=== PATIENT | male | born 1960 | race Caucasian/White ===

== ENCOUNTER 2017-06-20 11:58 | Observation (INO) | payer OTHER ==
[2017-06-20] VITALS (8 sets, daily range): BP systolic 94–122; BP diastolic 57–68; PULSE 51–58; RESP 16–20; TEMP 97.9–98; O2SAT 96–99
[~2017-06-20] VITALS: Ht 172.7 cm; Wt 80.0 kg
[~2017-06-20 11:58] MED LIST: 1-ME1LIQ OR; BENA20TA PO; MS C30TA5 PO; PERC10TA27 PO; VIST50CA PO
[2017-06-20] MEDS ORDERED: SODIUM CHLOR 0.9% 1000 ML INJ 1,000 ML IV ONE (14:31)
--- NOTE | 2017-06-20 14:36 | PD ---
HPI Chief Complaint: SYNCOPE Time Seen by Provider: 14:33 Travel History International Travel<30 days: No Contact w/Intl Traveler<30days: No History of Present Illness HPI 57 year old male presents to the emergency department via EMS for evaluation of syncopal episode. Patient is in ambulance hallway and is evaluated there. Patient reports syncopal episode approximately 5 hours ago. He states he was walking to his kitchen when he had a syncopal episode. Patient states he felt dizzy, like the room was spinning around him before he had syncopal episode. Patient has slurred speech on my exam. He reports that this has been ongoing since yesterday. He states, "I don't feel good". Patient states that he cannot remember his medical history what medications he is on. Patient is a poor historian and is not fully participate in my examination. He denies any headache. Denies any fevers or chills. No chest pain or shortness of breath. No abdominal pain. No vomiting or diarrhea. He does admit to nausea. PFSH Past Medical History Arthritis: No Anxiety: Yes Depression: Yes Heart Rhythm Problems: No Cancer: No Cardiovascular Problems: Yes High Cholesterol: No Chest Pain: No Congestive Heart Failure: No Cerebrovascular Accident: No Diabetes: No Endocrine: No Genitourinary: No Hepatitis: No Hiatal Hernia: No Immune Disorder: No Musculoskeletal: Yes Neurologic: Yes Psychiatric: Yes Reproductive: No Respiratory: No Migraines: No Seizures: No Thyroid Disease: No Past Surgical History Abdominal Surgery: Yes (2002) Body Medical Devices: titanium in the neck Cardiac Surgery: No Ear Surgery: No Endocrine Surgery: No Eye Surgery: No Genitourinary Surgery: No Oral Surgery: No Pacemaker: No Thoracic Surgery: No Social History Alcohol Use: Yes (HAS BEEN IN REHAB) Tobacco Use: Yes (2-3 PACKS A DAY) Substance Use: No Allergies-Medications (Allergen,Severity, Reaction): Coded Allergies: No Known Allergies (Verified , 11/12/11) Reported Meds & Prescriptions Reported Meds & Active Scripts Active Reported Ms Contin (Morphine Sulfate) 30 Mg Tab 30 Mg PO BID Vistaril (Hydroxyzine Pamoate) 50 Mg Cap 50 Mg PO TID Benazepril Hcl (Benazepril HCl) 20 Mg Tab 20 Mg PO DAILY Percocet 10/325 (Oxycodone/Acetaminophen) Tab 1 Tab PO Q4HPRN Amlodipine Besylate 10 Mg Tab 20 Mg OR DAILY Physical Exam Narrative GENERAL: Well-nourished, well-developed male patient. Speech is garbled and slurred. Patient is lethargic. SKIN: Focused skin assessment warm/dry. HEAD: Normocephalic. EYES: No scleral icterus. No injection or drainage. NECK: Supple, trachea midline. No JVD or lymphadenopathy. CARDIOVASCULAR: Regular rhythm without murmurs, gallops, or rubs. Patient is bradycardic with heart rate in the 40s. RESPIRATORY: Breath sounds equal bilaterally. No accessory muscle use. Lungs sounds are clear to auscultation. GASTROINTESTINAL: Abdomen soft, non-tender, nondistended. MUSCULOSKELETAL: No cyanosis, or edema. Bilateral upper and lower extremity strength 5/5. Patient moves all extremities to command BACK: Nontender without obvious deformity. No CVA tenderness. Data Data Orders Complete Blood Count With Diff (06/20/17 14:31) Comprehensive Metabolic Panel (06/20/17 14:31) Magnesium (Mg) (06/20/17 14:31) Ckmb (Isoenzyme) Profile (06/20/17 14:31) Troponin I (06/20/17 14:31) Act Partial Throm Time (Ptt) (06/20/17 14:31) Prothrombin Time / Inr (Pt) (06/20/17 14:31) Urinalysis - C+S If Indicated (06/20/17 14:31) Chest, Single Ap (06/20/17 14:31) Ct Brain W/O Iv Contrast(Rout) (06/20/17 14:31) Ecg Monitoring (06/20/17 14:31) Iv Access Insert/Monitor (06/20/17 14:31) Oximetry (06/20/17 14:31) Sodium Chloride 0.9% Flush (Ns Flush) (06/20/17 14:45) Sodium Chlor 0.9% 1000 Ml Inj (Ns 1000 M (06/20/17 14:31) Drug Screen, Random Urine (06/20/17 14:31) Alcohol (Ethanol) (06/20/17 14:31) Orthostatic Vital Signs (06/20/17 14:36) Electrocardiogram (06/20/17 ) Diphenhydramine Inj (Benadryl Inj) (06/20/17 15:30) MDM Medical Decision Making Medical Screen Exam Complete: Yes Emergency Medical Condition: Yes Medical Record Reviewed: Yes Differential Diagnosis Symptomatic bradycardia versus electric abnormality versus intracranial normality versus CVA versus TIA versus vertigo versus orthostatic hypotension Narrative Course 57-year-old male presents to the emergency department via EMS after syncopal episode. Workup was initiated and ambulatory. Patient is bradycardic. His speech is slurred on exam. He states this started yesterday. Patient is a poor historian. Workup was initiated and patient will be transferred to medical pod when available. Duyen Ordonez Jun 20, 2017 14:36
[2017-06-20] MEDS ORDERED: SODIUM CHLORIDE 0.9% FLUSH 10 ML FLUSH IVF PRN (14:45)
--- NOTE | 2017-06-20 14:51 | RADRPT ---
EXAM DATE/TIME: 06/20/2017 14:44 [facility] COMPARISON: No previous studies available for comparison. INDICATIONS : Syncope. MEDICAL HISTORY : None. SURGICAL HISTORY : Fusion, cervical. ENCOUNTER: Initial ACUITY: 1 day PAIN SCORE: Non-responsive. LOCATION: Bilateral chest FINDINGS: The heart is at the upper limits of normal in size. The lungs demonstrate some chronic interstitial c hanges but are otherwise clear. There is no pleural effusion. No pneumothorax is seen. The visualized bony structures are grossly intact. CONCLUSION: 1. Chronic interstitial changes. Donte Sosa MD on June 20, 2017 at 14:49 Board Certified Radiologist. This report was verified electronically.
[2017-06-20] MEDS ORDERED: diphenhydrAMINE HCL 50 MG/ML VIAL IV PUSH ONE (15:30)
--- NOTE | 2017-06-20 15:49 | PD ---
Physical Exam Date Seen by Provider: Jun 20, 2017 Time Seen by Provider: 15:48 Narrative 57-year-old male that presents to the ED for evaluation of syncope as well as altered mental status. Patient does have a history of bipolar disorder as well as schizophrenia. History is limited because patient does appear to have some dyskinesia appears to have issues talking. History was obtained mainly from the family as is different cold to obtain history from the patient secondary to what appears to be extrapyramidal side effects from his psychotic medication. expressive aphasia on differential. Patient had a syncopal episode today. Patient was initially evaluated by Duyen BELLA, please refer to her note. I was asked to evaluate the patient as well as disposition and treat as needed. Data Data Last Documented VS Vital Signs Date Time Temp Pulse Resp B/P Pulse Ox O2 Delivery O2 Flow Rate FiO2 06/20/17 15:00 52 16 98/68 98 Room Air 06/20/17 14:30 98.0 Orders Complete Blood Count With Diff (06/20/17 14:31) Comprehensive Metabolic Panel (06/20/17 14:31) Magnesium (Mg) (06/20/17 14:31) Ckmb (Isoenzyme) Profile (06/20/17 14:31) Troponin I (06/20/17 14:31) Act Partial Throm Time (Ptt) (06/20/17 14:31) Prothrombin Time / Inr (Pt) (06/20/17 14:31) Urinalysis - C+S If Indicated (06/20/17 14:31) Chest, Single Ap (06/20/17 14:31) Ct Brain W/O Iv Contrast(Rout) (06/20/17 14:31) Ecg Monitoring (06/20/17 14:31) Iv Access Insert/Monitor (06/20/17 14:31) Oximetry (06/20/17 14:31) Sodium Chloride 0.9% Flush (Ns Flush) (06/20/17 14:45) Sodium Chlor 0.9% 1000 Ml Inj (Ns 1000 M (06/20/17 14:31) Drug Screen, Random Urine (06/20/17 14:31) Alcohol (Ethanol) (06/20/17 14:31) Orthostatic Vital Signs (06/20/17 14:36) Electrocardiogram (06/20/17 ) Diphenhydramine Inj (Benadryl Inj) (06/20/17 15:30) Labs Laboratory Tests Test 06/20/17 06/20/17 15:00 15:20 White Blood Count 8.1 TH/MM3 Red Blood Count 3.77 MIL/MM3 Hemoglobin 12.7 GM/DL Hematocrit 38.0 % Mean Corpuscular Volume 100.8 FL Mean Corpuscular Hemoglobin 33.5 PG Mean Corpuscular Hemoglobin 33.3 % Concent Red Cell Distribution Width 12.7 % Platelet Count 164 TH/MM3 Mean Platelet Volume 9.5 FL Neutrophils (%) (Auto) 52.1 % Lymphocytes (%) (Auto) 32.8 % Monocytes (%) (Auto) 9.4 % Eosinophils (%) (Auto) 5.2 % Basophils (%) (Auto) 0.5 % Neutrophils # (Auto) 4.2 TH/MM3 Lymphocytes # (Auto) 2.7 TH/MM3 Monocytes # (Auto) 0.8 TH/MM3 Eosinophils # (Auto) 0.4 TH/MM3 Basophils # (Auto) 0.0 TH/MM3 CBC Comment DIFF FINAL Differential Comment Prothrombin Time 10.5 SEC Prothromb Time International 1.0 RATIO Ratio Activated Partial 26.6 SEC Thromboplast Time Sodium Level 130 MEQ/L Potassium Level 4.7 MEQ/L Chloride Level 98 MEQ/L Carbon Dioxide Level 25.2 MEQ/L Anion Gap 7 MEQ/L Blood Urea Nitrogen 36 MG/DL Creatinine 2.24 MG/DL Estimat Glomerular Filtration 31 ML/MIN Rate Random Glucose 82 MG/DL Calcium Level 9.2 MG/DL Magnesium Level 2.3 MG/DL Total Bilirubin 0.4 MG/DL Aspartate Amino Transf 32 U/L (AST/SGOT) Alanine Aminotransferase 48 U/L (ALT/SGPT) Alkaline Phosphatase 134 U/L Total Creatine Kinase 99 U/L Troponin I 0.02 NG/ML Total Protein 5.6 GM/DL Albumin 2.9 GM/DL Ethyl Alcohol Level LESS THAN 3 MG/DL [facility] Medical Record Reviewed: Yes Supervised Visit with POLLY: No Interpretation(s) CBC & BMP Diagram 06/20/17 15:00 06/20/17 15:20 troponin and CKMB negative Last Impressions Head CT 06/20/17 0901 Signed Impressions: Service Date/Time: June 16:04 - CONCLUSION: 1. No acute hemorrhage, mass effect or acute infarction. 2. Atrophy and findings most characteristic of chronic small vessel ischemic change. 3. Mild streak and motion artifact. Enrique Aguilar MD Chest X-Ray 06/20/17 1431 Signed Impressions: Service Date/Time: June 14:44 - CONCLUSION: 1. Chronic interstitial changes. Donte Sosa MD LFTs negative alcohol negative EKG shows bradycardia read by me and attending. Differential Diagnosis Stroke versus CVA versus altered mental status versus syncope versus head injury versus medication side effect Narrative Course 57-year-old male that presents to the ED for evaluation of syncopal episode with what appears to be extra pyramidal symptoms from antipsychotic med. Patient was initially seen by Duyen BELLA. Please refer to her note. My attending Dr. Castellanos and I evaluated the patient and she agrees with plan. Altered mental status workup was ordered. Labs and imaging were essentially unremarkable other than for what appears to be acute kidney injury. Patient still somewhat altered and unclear this is a side effect of the medication, psychosis or possible CVA. Recommendation of because of this is for admission for further evaluation of this. I'm and patient agree with this. Patient's EKG did show what appears to be bradycardia but this appears to be chronic for the patient. Case discussed with NATALEE who agrees to admission. Diagnosis Primary Impression: Altered mental status Qualified Code: R41.82 - Altered mental status, unspecified altered mental status type Additional Impressions: Syncope Qualified Code: R55 - Syncope, unspecified syncope type Acute kidney injury Admitting Information Admitting Physician Requests: Observation Scripts Unable to Obtain Active Prescriptions or Reported Meds David Schwartz Jun 20, 2017 15:49
[2017-06-20 15:59] LABS: AUTOMATED NEUTROPHIL # 4.2 TH/MM3 (1.8-7.7); BASOPHIL % 0.5 % (0.0-2.0); EOSINOPHIL # 0.4 TH/MM3 (0-0.4); EOSINOPHIL % 5.2 % (0.0-4.0); HEMO FLAGS DIFF FINAL; LYMPH % 32.8 % (9.0-44.0); LYMPHOCYTE # 2.7 TH/MM3 (1.0-4.8); MEAN CELL VOLUME 100.8 FL (80.0-100.0); MEAN CORPUSCULAR HEMOGLOBIN 33.5 PG (27.0-34.0); MEAN CORPUSCULAR HGB CONC 33.3 % (32.0-36.0); MONO % 9.4 % (0.0-8.0); NEUT % 52.1 % (16.0-70.0); PLATELET COUNT 164 TH/MM3 (150-450); RED BLOOD COUNT 3.77 MIL/MM3 (4.50-5.90); RED CELL DISTRIBUTION WIDTH 12.7 % (11.6-17.2); WHITE BLOOD COUNT 8.1 TH/MM3 (4.0-11.0)
[2017-06-20 16:11] LABS: ALT (GPT) 48 U/L (12-78); ANION GAP 7 MEQ/L (5-15); AST (GOT) 32 U/L (15-37); BICARBONATE 25.2 MEQ/L (21.0-32.0); BLOOD UREA NITROGEN 36 MG/DL (7-18); CHLORIDE 98 MEQ/L (98-107); GLOMERULAR FILTRATION RATE 31 ML/MIN (>89); MAGNESIUM 2.3 MG/DL (1.5-2.5); POTASSIUM 4.7 MEQ/L (3.5-5.1); SODIUM (NA) 130 MEQ/L (136-145)
[2017-06-20 16:11] LABS: APTT (PATIENT) 26.6 SEC (24.3-30.1); PROTHROMBIN TIME - PATIENT 10.5 SEC (9.8-11.6)
[2017-06-20 16:15] LABS: ALCOHOL LESS THAN 3 MG/DL (0-5); ALKALINE PHOSPHATASE 134 U/L (45-117); CREATINE KINASE 99 U/L (39-308); TOTAL BILIRUBIN ADULT 0.4 MG/DL (0.2-1.0)
--- NOTE | 2017-06-20 16:38 | RADRPT ---
EXAM DATE/TIME: 06/20/2017 16:04 [facility] COMPARISON: No previous studies available for comparison. INDICATIONS : Syncope, altered mental status. RADIATION DOSE: 52.05 CTDIvol (mGy) MEDICAL HISTORY : Head trauma, neuropathy. SURGICAL HISTORY : Fusion, cervical. ENCOUNTER: Initial ACUITY: 1 day PAIN SCALE: 0/10 LOCATION: cranial TECHNIQUE: Multiple contiguous axial images were obtained of the head. Using automated exposure control and adj ustment of the mA and/or kV according to patient size, radiation dose was kept as low as reasonably a chievable to obtain optimal diagnostic quality images. DICOM format image data is available electro nically for review and comparison. FINDINGS: CEREBRUM: There is mild to moderate atrophic change with sulcal and ventricular prominence. Periventricular whi te matter lucencies are noted greatest along the frontal lobes. This is fairly symmetric in distribut ion. There is mild streak and motion artifact. No evidence of midline shift, mass lesion, hemorrhage or acute infarction. No extra-axial fluid collections are seen. POSTERIOR FOSSA: The cerebellum and brainstem are intact. The 4th ventricle is midline. The cerebellopontine angle i s unremarkable. EXTRACRANIAL: The visualized portion of the orbits is intact. SKULL: The calvaria is intact. No evidence of skull fracture. CONCLUSION: 1. No acute hemorrhage, mass effect or acute infarction. 2. Atrophy and findings most characteristic of chronic small vessel ischemic change. 3. Mild streak and motion artifact. Enrique Aguilar MD on June 20, 2017 at 16:34 Board Certified Radiologist. This report was verified electronically.
[2017-06-20 17:52] LABS: BACTERIA, URINE RARE /hpf; BLOOD, URINE NEG (NEG); COMMENT (UR) CULT NOT INDICATED; CULTURE IF INDICATED CULT NOT INDICATED; GLUCOSE,URINE NEG (NEG); KETONE, URINE NEG (NEG); NITRITE,URINE NEG (NEG); PH, URINE 5.5 (5.0-8.5); URINE COLOR YELLOW (YELLW/STRAW)
[2017-06-20] MEDS ORDERED: ACETAMINOPHEN/HYDROcodone 325 MG/5 MG TAB PO PRN (19:45)
[2017-06-20] MEDS ORDERED: MORPHINE SULFATE 4 MG/ML INJ IV PRN (19:45)
[2017-06-20] MEDS ORDERED: MAGNESIUM HYDROXIDE SUSP 30 ML CUP PO PRN (19:45)
[2017-06-20] MEDS ORDERED: BISACODYL 10 MG SUPP RECTAL PRN (19:45)
[2017-06-20] MEDS ORDERED: ACETAMINOPHEN 325 MG TAB PO PRN (19:45)
[2017-06-20] MEDS ORDERED: ONDANSETRON HCL 4 MG/2 ML VIAL IVP PRN (19:45)
[2017-06-20] MEDS ORDERED: LACTULOSE SYRUP 20 GM/30 ML CUP PO PRN (19:45)
[2017-06-20] MEDS ORDERED: SENNOSIDES 8.6 MG TAB PO PRN (19:45)
[2017-06-20] MEDS ORDERED: SODIUM CHLORIDE 0.9% FLUSH 10 ML FLUSH IV FLUSH PRN (19:45)
--- NOTE | 2017-06-20 20:07 | HHI.HP ---
HPI Service [facility] Primary Care Physician Unknown Admission Diagnosis altered mental status, syncope, possible med reaction Diagnoses: Chief Complaint: syncope Travel History International Travel<30 Days: No Contact w/Intl Traveler <30 Da: No Traveled to Known Affected Are: No History of Present Illness 57 y/o male with a history of HTN, Afib, IVDA with heroin and bipolar with schizophrenia presented to the ED after having a syncopal episode at home. Patient currently resides in a sober living home associated with [facility]. Patient was seen at [facility] on Saturday and given an IM shot of Invega, and on Saturday he started vomiting. He states today he walked into his kitchen felt dizzy and then passed out. Denies hitting his head. Prior to syncopal episode he denies any chest pain, sob, fever, or chills. He was off all his medications while at [facility] and resumed them today. He states he has followed with Dr. Mahoney in the past and has been told he has a low heart rate, no pacemaker at this time. According to mom who is at bedside, she states his speech is much improved. When he came in he was confused with slurred speech. He is now oriented x 3, agitated at times but he has not had his night time psych medications yet. Review of Systems Except as stated in HPI: all other systems reviewed are Neg Past Family Social History Past Medical History htn afib bipolar with schizophrenia IVDA Past Surgical History Titanium rods in back Cholecystomy Reported Medications Allergies: Coded Allergies: No Known Allergies (Verified , 06/20/17) Family History Dad: Afib Social History Tobacco use: 1 11/05 PPD Alcohol use: Quit 3 weeks Illicit use: Heroin last used 7 months ago Physical Exam Vital Signs Vital Signs Date Time Temp Pulse Resp B/P Pulse Ox O2 Delivery O2 Flow Rate FiO2 06/20/17 18:53 52 16 107/57 99 06/20/17 17:42 54 16 101/64 58 18 98/65 62 20 99/63 06/20/17 17:00 58 16 104/65 97 Room Air 06/20/17 16:00 55 16 102/65 99 Room Air 06/20/17 15:00 52 16 98/68 98 Room Air 06/20/17 14:30 Room Air 06/20/17 14:30 98 Room Air 06/20/17 14:30 98.0 54 16 94/65 98 Physical Exam GENERAL: This is a well-nourished, well-developed patient, who is a little anxious. SKIN: No rashes, ecchymoses or lesions. Cool and dry. HEAD: Atraumatic. Normocephalic. EYES: Pupils equal round and reactive. Extraocular motions intact. ENT: Nose without bleeding, purulent drainage or septal hematoma. Airway patent. NECK: Trachea midline. No JVD or lymphadenopathy. Supple, nontender, no meningeal signs. CARDIOVASCULAR: Regular rate and rhythm without murmurs, gallops, or rubs. RESPIRATORY: Clear to auscultation. Breath sounds equal bilaterally. No wheezes , rales, or rhonchi. GASTROINTESTINAL: Abdomen soft, non-tender, nondistended. No hepato-splenomegaly , or palpable masses. No guarding. MUSCULOSKELETAL: Extremities without clubbing, cyanosis, or edema. No joint tenderness, effusion, or edema noted. No calf tenderness. NEUROLOGICAL: Awake and alert. Motor and sensory grossly within normal limits. Five out of 5 muscle strength in all muscle groups. Normal speech. Laboratory Laboratory Tests Test 06/20/17 06/20/17 06/20/17 15:00 15:20 17:20 White Blood Count 8.1 Red Blood Count 3.77 Hemoglobin 12.7 Hematocrit 38.0 Mean Corpuscular Volume 100.8 Mean Corpuscular Hemoglobin 33.5 Mean Corpuscular Hemoglobin 33.3 Concent Red Cell Distribution Width 12.7 Platelet Count 164 Mean Platelet Volume 9.5 Neutrophils (%) (Auto) 52.1 Lymphocytes (%) (Auto) 32.8 Monocytes (%) (Auto) 9.4 Eosinophils (%) (Auto) 5.2 Basophils (%) (Auto) 0.5 Neutrophils # (Auto) 4.2 Lymphocytes # (Auto) 2.7 Monocytes # (Auto) 0.8 Eosinophils # (Auto) 0.4 Basophils # (Auto) 0.0 CBC Comment DIFF FINAL Differential Comment Prothrombin Time 10.5 Prothromb Time International 1.0 Ratio Activated Partial 26.6 Thromboplast Time Sodium Level 130 Potassium Level 4.7 Chloride Level 98 Carbon Dioxide Level 25.2 Anion Gap 7 Blood Urea Nitrogen 36 Creatinine 2.24 Estimat Glomerular Filtration 31 Rate Random Glucose 82 Calcium Level 9.2 Magnesium Level 2.3 Total Bilirubin 0.4 Aspartate Amino Transf 32 (AST/SGOT) Alanine Aminotransferase 48 (ALT/SGPT) Alkaline Phosphatase 134 Total Creatine Kinase 99 Troponin I 0.02 Total Protein 5.6 Albumin 2.9 Ethyl Alcohol Level LESS THAN 3 Urine Color YELLOW Urine Turbidity CLEAR Urine pH 5.5 Urine Specific [place] 1.006 Urine Protein NEG Urine Glucose (UA) NEG Urine Ketones NEG Urine Occult Blood NEG Urine Nitrite NEG Urine Bilirubin NEG Urine Urobilinogen LESS THAN 2.0 Urine Leukocyte Esterase NEG Urine RBC 1 Urine WBC 2 Urine Bacteria RARE Microscopic Urinalysis Comment CULT NOT INDICATED Urine Opiates Screen NEG Urine Barbiturates Screen NEG Urine Amphetamines Screen NEG Urine Benzodiazepines Screen NEG Urine Cocaine Screen NEG Urine Cannabinoids Screen NEG Result Diagram: 06/20/17 1500 06/20/17 1520 Imaging Last Impressions Head CT 06/20/17 1431 Signed Impressions: Service Date/Time: June 16:04 - CONCLUSION: 1. No acute hemorrhage, mass effect or acute infarction. 2. Atrophy and findings most characteristic of chronic small vessel ischemic change. 3. Mild streak and motion artifact. Enrique Aguilar MD Chest X-Ray 06/20/17 1431 Signed Impressions: Service Date/Time: June 14:44 - CONCLUSION: 1. Chronic interstitial changes. Donte Sosa MD Carotid Artery Ultrasound 06/20/17 0000 Signed Impressions: Service Date/Time: June 23:11 - CONCLUSION: 1. Minimal intimal thickening in both carotid systems with no significant calcified atherosclerotic plaquing. 2. No sonographic or Doppler findings of a hemodynamically significant stenosis. Antegrade flow in both vertebral arteries. Lopez Adorno MD Assessment and Plan Problem List: (1) Syncope ICD Code: R55 Status: Acute (2) Acute kidney injury ICD Code: N17.9 Status: Acute (3) Altered mental status ICD Code: R41.82 Status: Acute Assessment and Plan 57 y/o male with a history of HTN, Afib, IVDA with heroin and bipolar with schizophrenia presented to the ED after having a syncopal episode at home. Syncope with AMS, r/o TIA vs medication effect Head CT reviewed and shows No acute hemorrhage, mass effect or acute infarction. Atrophy and findings most characteristic of chronic small vessel ischemic change. -Orthostatic BP ordered -2D echo -US carotids -Neuro checks -Lipid panel ordered Symptomatic bradycardia EKG reviewed and shows Bradycardia HR 53 -Consult cardiology for recommendations -Serial EKGs -Monitor Tele -Hold home Cardizem for now Acute kidney injury, creatine 2.4, .9 in 2011, patient is unsure of CKD, suspect dehydration -IVF for hydration -BMP in AM Bipolar, chronic -Will reorder home medications once updated in med rec. DVT prophylaxis: SCDs Discussed Condition With Patient, patients mom, and RN Problem Qualifiers (1) Syncope: Qualified Code: R55 - Syncope, unspecified syncope type (2) Altered mental status: Qualified Code: R41.82 - Altered mental status, unspecified altered mental status type Vanessa Gonzales Jun 20, 2017 20:07
[2017-06-20] MEDS: DOCUSATE SODIUM 50 MG/SENNA 8.6 MG TAB PO SCH (21:00)
[2017-06-21] VITALS (9 sets, daily range): BP systolic 95–147; BP diastolic 55–91; PULSE 45–65; RESP 16–20; TEMP 97.2–98.7; O2SAT 95–98
[2017-06-21] MEDS: SODIUM CHLOR 0.9% 1000 ML INJ 1,000 ML IV SCH ×3 (00:33→15:41)
[2017-06-21] MEDS: SODIUM CHLORIDE 0.9% FLUSH 10 ML FLUSH IV FLUSH SCH ×3 (00:34→21:00)
--- NOTE | 2017-06-21 00:36 | RADRPT ---
EXAM DATE/TIME: 06/20/2017 23:11 [facility] COMPARISON: No previous studies available for comparison. INDICATIONS : Syncope. MEDICAL HISTORY : Hypertension. Head trauma. Depression. Anxiety. Neuropathy. SURGICAL HISTORY : Cholecystectomy. Fusion, cervical. Herniated disk repair. ENCOUNTER: Initial ACUITY: 1 day PAIN SCORE: 0/10 LOCATION: Bilateral neck PEAK SYSTOLIC VELOCITIES (cm/sec): ICA/CCA RATIO: Right: 0.9 Left: 1.1 ICA: Right: 116 Left: 126 CCA: Right: 132 Left: 114 ECA: Right: 74 Left: 88 VERTEBRAL: Right: 51 antegrade Left: 56 antegrade Elevated flow velocities and ICA/CCA ratios have been found to correlate with increased degrees of vessel stenosis, calculated as percentage of diameter relative to a normal segment of distal ICA/CCA FINDINGS: RIGHT CAROTID: Minimal intimal thickening. The waveforms are within normal limits. LEFT CAROTID: Minimal intimal thickening. The waveforms are within normal limits. VERTEBRAL ARTERIES: Antegrade flow is seen in both vertebral arteries. MISCELLANEOUS: None. CONCLUSION: 1. Minimal intimal thickening in both carotid systems with no significant calcified atherosclerotic p laquing. 2. No sonographic or Doppler findings of a hemodynamically significant stenosis. Antegrade flow in edinson th vertebral arteries. Lopez Adorno MD on June 21, 2017 at 0:33 Board Certified Radiologist. This report was verified electronically.
[2017-06-21 02:31] LABS: AUTOMATED NEUTROPHIL # 3.3 TH/MM3 (1.8-7.7); BASOPHIL % 0.5 % (0.0-2.0); EOSINOPHIL # 0.4 TH/MM3 (0-0.4); EOSINOPHIL % 6.1 % (0.0-4.0); HEMATOCRIT 34.2 % (39.0-51.0); HEMO FLAGS DIFF FINAL; LYMPH % 29.8 % (9.0-44.0); LYMPHOCYTE # 1.9 TH/MM3 (1.0-4.8); MEAN CELL VOLUME 98.5 FL (80.0-100.0); MEAN CORPUSCULAR HEMOGLOBIN 33.9 PG (27.0-34.0); MEAN CORPUSCULAR HGB CONC 34.4 % (32.0-36.0); MONO % 10.7 % (0.0-8.0); NEUT % 52.9 % (16.0-70.0); PLATELET COUNT 163 TH/MM3 (150-450); RED BLOOD COUNT 3.47 MIL/MM3 (4.50-5.90); RED CELL DISTRIBUTION WIDTH 12.6 % (11.6-17.2); WHITE BLOOD COUNT 6.3 TH/MM3 (4.0-11.0)
[2017-06-21 02:55] LABS: ALT (GPT) 39 U/L (12-78); ANION GAP 7 MEQ/L (5-15); AST (GOT) 26 U/L (15-37); BICARBONATE 23.5 MEQ/L (21.0-32.0); BLOOD UREA NITROGEN 29 MG/DL (7-18); CHLORIDE 106 MEQ/L (98-107); GLOMERULAR FILTRATION RATE 46 ML/MIN (>89); POTASSIUM 4.5 MEQ/L (3.5-5.1); SODIUM (NA) 136 MEQ/L (136-145)
[2017-06-21 03:01] LABS: ALKALINE PHOSPHATASE 124 U/L (45-117); HDL CHOLESTEROL 33.7 MG/DL (40.0-60.0); LDL CHOLESTEROL 47 MG/DL (0-99); TOTAL BILIRUBIN ADULT 0.5 MG/DL (0.2-1.0)
[2017-06-21] MEDS: DOCUSATE SODIUM 50 MG/SENNA 8.6 MG TAB PO SCH ×2 (07:47→21:00)
--- NOTE | 2017-06-21 09:14 | EKG ---
Date Performed: 06/20/2017 Time Performed: 12:20:14 PTAGE: 57 years EKG: SUPRAVENTRICULAR BRADYCARDIA ST ELEVATION, PROBABLY EARLY REPOLARIZATION ABNORMAL RHYTHM EC G NO PREVIOUS TRACING DOCTOR: Erik Felix Interpretating Date/Time 06/21/2017 09:13:09
[2017-06-21] MEDS ORDERED: MAGNESIUM HYDROXIDE SUSP 30 ML CUP PO ONE (12:45)
--- NOTE | 2017-06-21 13:00 | HHI.PR ---
Subjective Remarks Follow up for syncope, bradycardia. The patient reports feeling better today. He denies any lightheadedness, dizziness, chest pain, palpitations, or shortness of breath. Denies any further nausea or vomiting. He states he is hungry and hasn't been fed enough food or water. He says 2 weeks ago he was [place] 4 [place] and that is why he is dehydrated. He also says he hasn't had a BM in 18 days. He denies any other medical complaints at this time. Objective Vitals Vital Signs Date Time Temp Pulse Resp B/P Pulse Ox O2 Delivery O2 Flow Rate FiO2 06/21/17 11:48 97.6 61 16 117/76 95 06/21/17 08:37 98.7 50 20 113/66 97 111/65 99/55 06/21/17 06:21 97.2 51 17 103/57 95 06/21/17 04:20 59 06/21/17 00:43 45 06/21/17 00:05 98.2 45 17 95/61 98 06/20/17 20:25 51 06/20/17 20:23 97.9 53 19 122/65 96 06/20/17 18:53 52 16 107/57 99 06/20/17 17:42 54 16 101/64 58 18 98/65 62 20 99/63 06/20/17 17:00 58 16 104/65 97 Room Air 06/20/17 16:00 55 16 102/65 99 Room Air 06/20/17 15:00 52 16 98/68 98 Room Air 06/20/17 14:30 Room Air 06/20/17 14:30 98 Room Air 06/20/17 14:30 98.0 54 16 94/65 98 I/O 06/20/17 06/20/17 06/20/17 06/21/17 06/21/17 06/21/17 07:00 15:00 23:00 07:00 15:00 23:00 Intake Total 1610 ml Output Total 2000 ml Balance -390 ml Intake Oral 1110 ml IV Total 500 ml Output Urine Total 2000 ml # Voids 3 Result Diagram: 06/21/175 06/21/17 020 Imaging Last Impressions Head CT 06/20/17 1431 Signed Impressions: Service Date/Time: June 16:04 - CONCLUSION: 1. No acute hemorrhage, mass effect or acute infarction. 2. Atrophy and findings most characteristic of chronic small vessel ischemic change. 3. Mild streak and motion artifact. Enrique Aguilar MD Chest X-Ray 06/20/17 1431 Signed Impressions: Service Date/Time: June 14:44 - CONCLUSION: 1. Chronic interstitial changes. Donte Sosa MD Carotid Artery Ultrasound 06/20/17 0000 Signed Impressions: Service Date/Time: June 23:11 - CONCLUSION: 1. Minimal intimal thickening in both carotid systems with no significant calcified atherosclerotic plaquing. 2. No sonographic or Doppler findings of a hemodynamically significant stenosis. Antegrade flow in both vertebral arteries. Lopez Adorno MD Objective Remarks GENERAL: Well-nourished, well-developed middle aged male patient in [place]. SKIN: Warm and dry. No rash. HEENT: Normocephalic. Atraumatic. Pupils equal and round. Mucous membranes pink and moist. NECK: Supple. Trachea midline. CARDIOVASCULAR: Regular rate and rhythm. S1, S2 noted. No murmur appreciated. RESPIRATORY: No accessory muscle use. Clear to auscultation. Breath sounds equal bilaterally. GASTROINTESTINAL: Abdomen soft, non-tender, nondistended. Normoactive bowel sounds x4. MUSCULOSKELETAL: No obvious deformities. Extremities without clubbing, cyanosis , or edema. NEUROLOGICAL: Awake and alert. No obvious cranial nerve deficits. Motor grossly within normal limits. Normal speech. PSYCHIATRIC: Appropriate mood and affect; insight and judgment limited. Medications and IVs Current Medications Medications (Trade) Dose Ordered Sig/Hanna Route Start Time Stop Time Status Last Admin Sodium Chloride 2 ml 2 ml UNSCH PRN IVF 06/20/17 14:45 (NS 1000 ml Inj) 1,000 ml @ 100 mls/hr Q10H IV 06/20/17 19:41 06/21/17 05:41 (NS Flush) 2 ml UNSCH PRN IV FLUSH 06/20/17 19:45 (NS Flush) 2 ml BID IV FLUSH 06/20/17 21:00 06/21/17 07:47 (Zofran Inj) 4 mg Q6H PRN IVP 06/20/17 19:45 (Tylenol) 650 mg Q6H PRN PO 06/20/17 19:45 ([place] 5-325 Mg) 1 tab Q4H PRN PO 06/20/17 19:45 (Morphine Inj) 2 mg Q3H PRN IV 06/20/17 19:45 (Cinthia-Colace) 1 tab BID PO 06/20/17 21:00 06/21/17 07:47 (Milk Of Magnesia Liq) 30 ml Q12H PRN PO 06/20/17 19:45 (Senokot) 17.2 mg Q12H PRN PO 06/20/17 19:45 (Dulcolax Supp) 10 mg DAILY PRN RECTAL 06/20/17 19:45 (Lactulose Liq) 30 ml DAILY PRN PO 06/20/17 19:45 A/P Problem List: (1) Syncope ICD Code: R55 Status: Acute (2) Acute kidney injury ICD Code: N17.9 Status: Acute (3) Altered mental status ICD Code: R41.82 Status: Acute Assessment and Plan 57 y/o male with a history of HTN, Afib, IVDA with heroin and bipolar with schizophrenia presented to the ED after having a syncopal episode at home. Syncope: suspect secondary to severe dehydration, possible medication side effect, recently received IM Invega, began N/V and syncopized. Head CT images reviewed, no acute findings; chronic small vessel ischemic change. -Orthostatic vital signs minimally positive, systolic and diastolic only drop 10mmHg -2D echo ordered -US carotids unremarkable, no significant stenosis -Continue Neuro checks -Lipid panel wnl -Continue IVF for hydration Symptomatic bradycardia: EKG reviewed and shows Bradycardia HR 53. -Monitor on telemetry -Hold home Cardizem for now -Consult cardiology, discussed with Dr. Macias, bradycardia likely noncontributory to symptoms; and HR increases appropriately with activity Acute Renal Failure: creatinine 2.4, previously 0.9 in 2011, secondary to severe dehydration -Give IVF for hydration -Repeat BMP shows improvement, Cr 1.57 -avoid nephrotoxins -continue to monitor Constipation: patient reports no BM in 18 days, although patient unreliable historian with history of bipolar/schizophrenia -check KUB -continue cinthia-colace and give MOM x1 -monitor for BM Bipolar, chronic -Will reorder home medications once updated in med rec. DVT prophylaxis: SCDs Problem Qualifiers (1) Syncope: Qualified Code: R55 - Syncope, unspecified syncope type (2) Altered mental status: Qualified Code: R41.82 - Altered mental status, unspecified altered mental status type Genesis Cortes PA-C Jun 21, 2017 13:00
[2017-06-21] MEDS ORDERED: FLUO20CA12 PO (13:09)
[2017-06-21] MEDS ORDERED: LISI-519 PO (13:09)
[2017-06-21] MEDS ORDERED: LEDI1TAB (13:11)
[2017-06-21] MEDS ORDERED: IBUP800T23 PO (13:12)
[2017-06-21] MEDS ORDERED: DILT240C36 PO (13:13)
[2017-06-21] MEDS ORDERED: TRAZ100T6 PO (13:16)
--- NOTE | 2017-06-21 13:20 | RADRPT ---
EXAM DATE/TIME: 06/21/2017 12:52 [place] COMPARISON: No previous studies available for comparison. INDICATIONS : Nausea, vomiting, constipation. MEDICAL HISTORY : Hypertension. Smoker. SURGICAL HISTORY : Cholecystectomy. ENCOUNTER: Initial ACUITY: 2 weeks PAIN SCORE: 0/10 LOCATION: Abdomen. FINDINGS: 2 AP supine views of the abdomen and pelvis were obtained and demonstrate a moderate to large amount of stool throughout the colon. There are several loops of nondilated air-containing small bowel with no evidence of free air or mass affect on the supine study. The patient is status post cholecystectom y with surgical clips in the right upper quadrant. Lung bases are clear. There is a mild scoliosis in a patient status post open ridge and internal fixation of an old left hip fracture. CONCLUSION: Mildly nonspecific, nonobstructive bowel gas pattern with moderate to large amount of stool consistent with the history of constipation. Enrique Aguilar MD on June 21, 2017 at 13:16 Board Certified Radiologist. This report was verified electronically.
[2017-06-21] MEDS ORDERED: CLON0.2T PO (13:25)
[2017-06-21] MEDS ORDERED: PALI1TAB3 PO (13:26)
--- NOTE | 2017-06-21 15:01 | MB ---
cc: NATHANAEL OBREGON DO DATE OF CONSULTATION: 06/21/2017. REASON FOR CONSULTATION: Altered mental status, syncope, bradycardia. HISTORY OF PRESENT ILLNESS: Florin Orlando is a pleasant 57-year-old male who presented to the [facility] Emergency Room on June 20, 2017 due to a syncopal episode at episode at home. The patient currently resides in a sober living home due his history of IV drug abuse. The patient was at [facility] on Saturday and was given an intramuscular muscular shot of Invega and then on Saturday started vomiting. He continued to vomit over the past few days. Yesterday he got up and walked 10 feet to the kitchen and felt dizzy and then passed out. During the episode, he had no chest pain, shortness of breath or palpitations. He denies hitting his head. Per his mother, he was somewhat groggy upon waking but improved over the next few seconds. On seeing him, he is currently without chest pain, shortness of breath or palpitations. PAST MEDICAL HISTORY: 1. Hypertension 2. Questionable history of atrial fibrillation. 3. Bipolar with schizophrenia. 4. IV drug abuse. PAST SURGICAL HISTORY: 1. Titanium rods in his back. 2. Cholecystectomy. ALLERGIES: NO KNOWN DRUG ALLERGIES. MEDICATIONS: 1. Lisinopril 5 milligrams daily 2. Fluoxetine 20 milligrams daily. 3. Trazodone 100 milligrams daily. 4. Paliperidone ER 6 milligrams daily. 5. Diltiazem ER 240 milligrams daily. 6. Clonidine 0.2 milligrams every 4 hours. 7. 90/400 daily. 8. Ibuprofen 800 milligrams three times a day as needed for pain. FAMILY HISTORY: Denies premature coronary artery disease or sudden cardiac within the family. SOCIAL HISTORY: The patient smokes 1-1/2 packs of cigarettes per day. He quit drinking three weeks ago. Had a history of IV heroin use in the past but has not used for seven months. REVIEW OF SYSTEMS Fourteen systems were reviewed including osteopathic with pertinent positives and negatives as above; otherwise negative. PHYSICAL EXAMINATION: VITAL SIGNS: Temperature 97.6, heart rate 50, blood pressure supine 113/66, sitting 111/65, standing 99/55, respirations 20, pulse ox 97% on room air. GENERAL: In general, the patient appears well and in no acute distress, alert, awake and oriented x3. HEAD, EYES, EARS, NOSE, THROAT: Extraocular muscles intact. Mucous membranes moist. NECK: Supple. No JVD at 45 degrees. No carotid bruits heard bilaterally. Carotid upstroke is brisk in nature. HEART: Regular rate and rhythm. Positive first and second heart sounds with no noted murmurs, gallops or rubs. LUNGS: Clear to auscultation bilaterally. No wheezes, rales or rhonchi. ABDOMEN: The abdomen is soft, nontender and nondistended. No organomegaly noted. EXTREMITIES: No clubbing, cyanosis or edema. Femoral and distal pulses are intact bilaterally. NEUROLOGIC: No focal deficits. SKIN: Warm, dry and intact. OSTEOPATHIC: Osteopathically, no kyphoscoliosis, lordosis or paraspinal tender points. LABORATORY WORK: Hemoglobin 11.8, hematocrit 34.2, platelets 163,000. Potassium 4.5, BUN 29, creatinine 1.57. Troponin negative x2. IMPRESSIONS: 1. Syncopal episode most likely due to dehydration. 2. Orthostatic hypotension. 3. Emesis, presumably due to Invega. 4. Sinus bradycardia without symptoms on telemetry. 5. Questionable history of atrial fibrillation. 6. Tobacco abuse. RECOMMENDATIONS: 1. Mr. Orlando appears to have had a syncopal episode and this is most likely due to orthostatic blood pressure from hypovolemia. It appears that he had been vomiting over the past few days and unable to keep anything down and this most likely led to the hypovolemic issue. 2. He does have sinus bradycardia on telemetry and this is mostly while he is sleeping. Upon waking him up, heart rate increases into the upper 50s, low 60s. During the episodes when his heart rate is an upper 40s a low 50s, he is totally asymptomatic. 3. Will give IV fluids as it appears that he was hypovolemic with acute kidney injury. 4. I spoke to him for greater than three minutes about tobacco cessation. 5. Will check a 2-D echo to look at his overall left ventricular function, cardiac structure and possible valvulopathies. 6. If further episodes, he may need an outpatient Holter monitor for which he can follow up in the office. Thank you for allowing me to see Florin Orlando. If there are any questions, please do not hesitate to call. Nathanael Obregon DO YOLANDA/JCC /2:34 PM /2:46 PM
[2017-06-21] MEDS: traZODone HCL 100 MG TAB PO SCH (17:00)
[2017-06-22 00:05] VITALS: PULSE 53
[2017-06-22 00:38] VITALS: BP 140/78; PULSE 64; RESP 17; TEMP 97.9; O2SAT 94
[2017-06-22] MEDS: SODIUM CHLOR 0.9% 1000 ML INJ 1,000 ML IV SCH ×2 (01:41→10:31)
[2017-06-22 04:02] VITALS: PULSE 70
[2017-06-22] MEDS ORDERED: FLUoxetine HCL 20 MG CAP PO SCH (09:00)
[2017-06-22] MEDS ORDERED: PALIPERIDONE ER 6 MG TAB PO SCH (09:00)
[2017-06-22] MEDS: DOCUSATE SODIUM 50 MG/SENNA 8.6 MG TAB PO SCH (09:40)
[2017-06-22] MEDS: SODIUM CHLORIDE 0.9% FLUSH 10 ML FLUSH IV FLUSH SCH (09:41)
[2017-06-22] MEDS ORDERED: SUBO8MIS SL (10:44)
--- NOTE | 2017-06-22 10:51 | HHI.PR ---
Subjective Remarks Follow up for syncope, bradycardia, severe constipation. The patient states he feels much better today. He reports 1 large BM yesterday however he feels he could have more bowel movements and requesting another MOM dosing. He denies any abdominal pain, nausea/vomiting. He is tolerating oral intake. He denies any lightheadedness/dizziness, chest pain, palpitations, or shortness of breath. He is requesting his suboxone be restarted, takes suboxone 8mg-2mg tid ( verified on [facility] [employer]). He also asked for refill however instructed to follow up with Suboxone clinic after discharge. Objective Vitals Vital Signs Date Time Temp Pulse Resp B/P Pulse Ox O2 Delivery O2 Flow Rate FiO2 06/22/17 04:02 70 06/22/17 00:38 97.9 64 17 140/78 94 06/22/17 00:05 53 06/21/17 20:31 98.1 61 18 147/80 96 06/21/17 20:10 62 06/21/17 16:18 97.7 65 16 144/91 95 06/21/17 11:48 97.6 61 16 117/76 95 I/O 06/21/17 06/21/17 06/21/17 06/22/17 06/22/17 06/22/17 07:00 15:00 23:00 07:00 15:00 23:00 Intake Total 1610 ml Output Total 2000 ml Balance -390 ml Intake Oral 1110 ml IV Total 500 ml Output Urine Total 2000 ml # Voids 3 Result Diagram: 06/21/17 0205 06/21/17 0205 Imaging Last Impressions Abdomen X-Ray 06/21/17 0000 Signed Impressions: Service Date/Time: Wednesday, June 21, 2017 12:52 - CONCLUSION: Mildly nonspecific, nonobstructive bowel gas pattern with moderate to large amount of stool consistent with the history of constipation. Enrique Aguilar MD Head CT 06/20/17 5657 Signed Impressions: Service Date/Time: June 16:04 - CONCLUSION: 1. No acute hemorrhage, mass effect or acute infarction. 2. Atrophy and findings most characteristic of chronic small vessel ischemic change. 3. Mild streak and motion artifact. Enrique Aguilar MD Chest X-Ray 06/20/17 1431 Signed Impressions: Service Date/Time: June 14:44 - CONCLUSION: 1. Chronic interstitial changes. Donte Sosa MD Carotid Artery Ultrasound 06/20/17 0000 Signed Impressions: Service Date/Time: June 23:11 - CONCLUSION: 1. Minimal intimal thickening in both carotid systems with no significant calcified atherosclerotic plaquing. 2. No sonographic or Doppler findings of a hemodynamically significant stenosis. Antegrade flow in both vertebral arteries. Lopez Adorno MD Objective Remarks GENERAL: Well-nourished, well-developed middle aged male patient in [facility]. SKIN: Warm and dry. No rash. HEENT: Normocephalic. Atraumatic. Pupils equal and round. Mucous membranes pink and moist. CARDIOVASCULAR: Regular rate and rhythm. S1, S2 noted. No murmur appreciated. RESPIRATORY: No accessory muscle use. Clear to auscultation. Breath sounds equal bilaterally. GASTROINTESTINAL: Abdomen soft, non-tender, nondistended. Normoactive bowel sounds x4. MUSCULOSKELETAL: No obvious deformities. Extremities without clubbing, cyanosis , or edema. NEUROLOGICAL: Awake and alert. No obvious cranial nerve deficits. Motor grossly within normal limits. Normal speech. PSYCHIATRIC: Appropriate mood and affect; insight and judgment fair. Medications and IVs Current Medications Medications (Trade) Dose Ordered Sig/Hanna Route Start Time Stop Time Status Last Admin (NS 1000 ml Inj) 1,000 ml @ 100 mls/hr Q10H IV 06/20/17 19:41 06/22/17 10:31 (NS Flush) 2 ml UNSCH PRN IV FLUSH 06/20/17 19:45 (NS Flush) 2 ml BID IV FLUSH 06/20/17 21:00 06/22/17 09:41 (Zofran Inj) 4 mg Q6H PRN IVP 06/20/17 19:45 (Tylenol) 650 mg Q6H PRN PO 06/20/17 19:45 ([place] 5-325 Mg) 1 tab Q4H PRN PO 06/20/17 19:45 (Morphine Inj) 2 mg Q3H PRN IV 06/20/17 19:45 (Cinthia-Colace) 1 tab BID PO 06/20/17 21:00 06/22/17 09:40 (Milk Of Magnesia Liq) 30 ml Q12H PRN PO 06/20/17 19:45 06/22/17 10:31 (Senokot) 17.2 mg Q12H PRN PO 06/20/17 19:45 (Dulcolax Supp) 10 mg DAILY PRN RECTAL 06/20/17 19:45 (Lactulose Liq) 30 ml DAILY PRN PO 06/20/17 19:45 (PROzac) 20 mg DAILY PO 06/22/17 09:00 06/22/17 09:41 (Invega Er) 6 mg DAILY PO 06/22/17 09:00 (Desyrel) 100 mg DAILY@16 PO 06/21/17 17:00 06/21/17 17:00 A/P Problem List: (1) Syncope ICD Code: R55 Status: Acute (2) Acute kidney injury ICD Code: N17.9 Status: Acute (3) Altered mental status ICD Code: R41.82 Status: Acute Assessment and Plan 57 y/o male with a history of HTN, Afib, IVDA with heroin and bipolar with schizophrenia presented to the ED after having a syncopal episode at home. Syncope: suspect secondary to severe dehydration, possible medication side effect, recently received IM Invega, began N/V and syncopized. Head CT images reviewed, no acute findings; chronic small vessel ischemic change. -Orthostatic vital signs minimally positive, systolic and diastolic drop 10mmHg -2D echo completed, results pending -US carotids unremarkable, no significant stenosis -Continue Neuro checks -Lipid panel wnl -Continue IVF for hydration -symptoms much improved, no lightheadedness/dizziness Symptomatic bradycardia: EKG reviewed and shows Bradycardia HR 53. -Monitor on telemetry -Discontinued home Cardizem for now -Consult cardiology, discussed with Dr. Macias, bradycardia likely noncontributory to symptoms; and HR increases appropriately with activity -HR much improved today, in the 70s, stable Acute Renal Failure: creatinine 2.4, previously 0.9 in 2011, secondary to severe dehydration -Give IVF for hydration -Repeat BMP shows improvement, Cr 1.57 -avoid nephrotoxins -repeat BMP Constipation: patient reports no BM in 18 days, although patient unreliable historian with history of bipolar/schizophrenia - KUB 06/21 showed large amount of stool without any signs of obstruction -continue cinthia-colace and given MOM x1, patient had 1 large BM yesterday -repeat MOM per patient's request Bipolar, chronic -Continue home medications DVT prophylaxis: SCDs Discharge Planning 1045hrs: Likely discharge today if echocardiogram unremarkable and BMP shows continued improvement. 1420hrs: BMP shows significant improvement with Cr 0.7. Acute renal failure resolved. Discussed with Dr. Macias ok to discharge if echo unremarkable. 1450hrs: Echocardiogram resulted, normal systolic function EF 55-60%, moderate MR, mild TR. Stable for discharge. Discharge patient to home Condition on discharge: Improved Heart Healthy Diet as tolerated Ad Cassie activity Rx written: no new meds, discontinued cardizem, clonidine, invega Follow-up with primary care physician Dr. Dotson within 2-3 days Problem Qualifiers (1) Syncope: Qualified Code: R55 - Syncope, unspecified syncope type (2) Altered mental status: Qualified Code: R41.82 - Altered mental status, unspecified altered mental status type Genesis Cortes PA-C Jun 22, 2017 10:51 am
[2017-06-22 12:12] VITALS: BP 157/86; PULSE 50; RESP 18; TEMP 96.8; O2SAT 95
[2017-06-22] MEDS ORDERED: NALOXONE SL SCH (13:00)
[2017-06-22] MEDS ORDERED: BUPRENORPHINE SL SCH (13:00)
[2017-06-22 13:11] LABS: BICARBONATE 27.7 MEQ/L (21.0-32.0)
--- NOTE | 2017-06-22 14:28 | PD.CARD.PN ---
Subjective Subjective Remarks No further events Telemetry showing normal sinus rhythm No AV block, no further bradycardia Objective Medications Current Medications Medications (Trade) Dose Ordered Sig/Hanna Route Start Time Stop Time Status Last Admin (NS 1000 ml Inj) 1,000 ml @ 100 mls/hr Q10H IV 06/20/17 19:41 06/22/17 10:31 (NS Flush) 2 ml UNSCH PRN IV FLUSH 06/20/17 19:45 (NS Flush) 2 ml BID IV FLUSH 06/20/17 21:00 06/22/17 09:41 (Zofran Inj) 4 mg Q6H PRN IVP 06/20/17 19:45 (Tylenol) 650 mg Q6H PRN PO 06/20/17 19:45 ([place] 5-325 Mg) 1 tab Q4H PRN PO 06/20/17 19:45 (Morphine Inj) 2 mg Q3H PRN IV 06/20/17 19:45 (Cinthia-Colace) 1 tab BID PO 06/20/17 21:00 06/22/17 09:40 (Milk Of Magnesia Liq) 30 ml Q12H PRN PO 06/20/17 19:45 06/22/17 10:31 (Senokot) 17.2 mg Q12H PRN PO 06/20/17 19:45 (Dulcolax Supp) 10 mg DAILY PRN RECTAL 06/20/17 19:45 (Lactulose Liq) 30 ml DAILY PRN PO 06/20/17 19:45 (PROzac) 20 mg DAILY PO 06/22/17 09:00 06/22/17 09:41 (Desyrel) 100 mg DAILY@16 PO 06/21/17 17:00 06/21/17 17:00 Patient Own Medication PT OWN MED: SUBOXON... TID SL 06/22/17 13:00 Hold Vital Signs / I&O Vital Signs Date Time Temp Pulse Resp B/P Pulse Ox O2 Delivery O2 Flow Rate FiO2 06/22/17 12:12 96.8 50 18 157/86 95 06/22/17 04:02 70 06/22/17 00:38 97.9 64 17 140/78 94 06/22/17 00:05 53 06/21/17 20:31 98.1 61 18 147/80 96 06/21/17 20:10 62 06/21/17 16:18 97.7 65 16 144/91 95 I/O 06/21/17 06/21/17 06/21/17 06/22/17 06/22/17 06/22/17 07:00 15:00 23:00 07:00 15:00 23:00 Intake Total 1610 ml Output Total 2000 ml Balance -390 ml Intake Oral 1110 ml IV Total 500 ml Output Urine Total 2000 ml # Voids 3 Physical Exam GENERAL: NAD, AAOx3 SKIN: Warm and dry. HEAD: Atraumatic. Normocephalic. EYES: Pupils equal and round. No scleral icterus. No injection or drainage. ENT: No nasal bleeding or discharge. Mucous membranes pink and moist. NECK: Trachea midline. No JVD. CARDIOVASCULAR: Regular rate and rhythm. RESPIRATORY: No accessory muscle use. Clear to auscultation. Breath sounds equal bilaterally. GASTROINTESTINAL: Abdomen soft, non-tender, nondistended. Hepatic and splenic margins not palpable. MUSCULOSKELETAL: Extremities without clubbing, cyanosis, or edema. No obvious deformities. NEUROLOGICAL: Awake and alert. No obvious cranial nerve deficits. Motor grossly within normal limits. Five out of 5 muscle strength in the arms and legs. Normal speech. PSYCHIATRIC: Appropriate mood and affect; insight and judgment normal. Laboratory Laboratory Tests Test 06/21/17 06/22/17 14:47 12:10 Troponin I LESS THAN 0.02 NG/ML Sodium Level 144 MEQ/L Potassium Level 4.0 MEQ/L Chloride Level 111 MEQ/L Carbon Dioxide Level 27.7 MEQ/L Anion Gap 5 MEQ/L Blood Urea Nitrogen 12 MG/DL Creatinine 0.75 MG/DL Estimat Glomerular Filtration 108 ML/MIN Rate Random Glucose 67 MG/DL Calcium Level 9.5 MG/DL Assessment and Plan Problem List: (1) Acute kidney injury (2) Syncope (3) Bradycardia Assessment and Plan 1) Syncope most likely due to dehydration 2) Dehydration due to emesis and poor PO intake 3) ARIELLE resolved 4) Cardizem stopped 5) No further bradycardia 6) 2D echo pending, if no problems can be discharged from a cardiovascular standpoint Problem Qualifiers (1) Syncope: Qualified Code: R55 - Syncope, unspecified syncope type Nathanael Macias DO Jun 22, 2017 14:28
--- NOTE | 2017-06-22 14:37 | ECHRPT ---
Indication: cardiomyopathy CONCLUSIONS Mildly dilated left ventricle. Mild concentric left ventricular hypertrophy. The left ventricular systolic function is normal with an estimated ejection fraction in the range of 55-60%. The left atrial size is mildly dilated. Moderate mitral valve regurgitation. There is mild tricuspid valve regurgitation. BP: / HR: Rhythm: MEASUREMENTS (Male / Female) Normal Values Technical Quality: 2D ECHO LV Diastolic Diameter PLAX 5.3 cm 4.2 - 5.9 / 3.9 - 5.3 cm LV Systolic Diameter PLAX 3.9 cm IVS Diastolic Thickness 1.1 cm 0.6 - 1.0 / 0.6 - 0.9 cm LVPW Diastolic Thickness 1.0 cm 0.6 - 1.0 / 0.6 - 0.9 cm LV Relative Wall Thickness 0.4 LA Systolic Diameter LX 4.2 cm 3.0 - 4.0 / 2.7 - 3.8 cm M-MODE Aortic Root Diameter MM 3.5 cm AV Cusp Separation MM 2.2 cm DOPPLER MR Peak Velocity 445.0 cm/s MR Peak Gradient 79.2 mmHg Mitral E Point Velocity 88.4 cm/s Mitral A Point Velocity 46.9 cm/s Mitral E to A Ratio 1.9 TR Peak Velocity 261.0 cm/s TR Peak Gradient 27.2 mmHg FINDINGS LEFT VENTRICLE Mildly dilated left ventricle. Mild concentric left ventricular hypertrophy. The left ventricular systolic function is normal with an estimated ejection fraction in the range of 55-60%. RIGHT VENTRICLE Normal right ventricular size and systolic function. LEFT ATRIUM The left atrial size is mildly dilated. RIGHT ATRIUM The right atrial size is normal. ATRIAL SEPTUM Normal atrial septal thickness without atrial level shunting by limited color doppler interrogation. AORTA The aortic root and proximal ascending aorta are normal in size on limited imaging. MITRAL VALVE Moderate mitral valve regurgitation. AORTIC VALVE Trileaflet aortic valve. No aortic valve stenosis or regurgitation. TRICUSPID VALVE There is mild tricuspid valve regurgitation. PULMONARY VALVE The pulmonary valve is not well visualized. VESSELS The inferior vena cava is normal in size. PERICARDIUM No pericardial effusion. Easton Garcia MD (Electronically Signed) Final Date:22 June 2017 14:36
--- NOTE | 2017-06-22 14:47 | HHI.DCPOC ---
Discharge Care Plan Diagnosis: (1) Syncope (2) Acute kidney injury (3) Severe dehydration (4) Bradycardia Goals to Promote Your Health * To prevent worsening of your condition and complications * To maintain your health at the optimal level Directions to Meet Your Goals Take your medications as prescribed Follow your dietary instruction Follow activity as directed Keep your appointments as scheduled Take your immunizations and boosters as scheduled If your symptoms worsen call your PCP, if no PCP go to Urgent Care Center or Emergency Room Smoking is Dangerous to Your Health. Avoid second hand smoke Call the 24-hour hour crisis hotline for domestic abuse at Genesis Cortes PA-C Jun 22, 2017 2:47 pm
[2017-06-22] MEDS: traZODone HCL 100 MG TAB PO SCH (15:24)
== END 2017-06-22 17:41 | disposition home or self-care (01) ==
LOC: NEPE 11:58 → NEDA 17:29 → NEPGCP 19:10
PROVIDERS: ADMIT Hospitalist; ATTEND Hospitalist
DX: R55 Syncope and collapse (principal); E86.0 Dehydration; R00.1 Bradycardia, unspecified; N17.9 Acute kidney failure, unspecified; I95.1 Orthostatic hypotension; K59.00 Constipation, unspecified; F32.9 Major depressive disorder, single episode, unspecified; R11.10 Vomiting, unspecified; R47.81 Slurred speech; F41.9 Anxiety disorder, unspecified; Z79.899 Other long term (current) drug therapy; R41.82 Altered mental status, unspecified; I10 Essential (primary) hypertension; I48.91 Unspecified atrial fibrillation; F20.9 Schizophrenia, unspecified; F17.210 Nicotine dependence, cigarettes, uncomplicated
CPT/HCPCS: 70450; 71010; 74000; 76937; 80048; 80053; 80061; 80307; 81001; 82550; 83735; 84484; 85025; 85610; 85730; 93005; 93306; 93880; 96361; 96374; 99285; G0378; J1200; J7030

== ENCOUNTER 2018-07-11 14:01 | Inpatient (IN) ==
[2018-07-11] MEDS ORDERED: Atropine Inj 1 MG/10 ML Syringe ONE ×2 (14:38→15:00)
[2018-07-11] MEDS ORDERED: Sodium Chlor 0.9% Inj 500 ML IV.SIG SCH (15:00)
[2018-07-11] MEDS ORDERED: Naloxone Inj 2 MG/2 ML Vial ONE ×2 (15:07→15:08)
--- NOTE | 2018-07-11 15:20 | ED ---
HPI General Chief complaint: Chest Pain Stated complaint: Cardiac complaint Time Seen by Provider: 07/11/18 14:36 History of Present Illness HPI narrative: Patient is a 58-year-old male presents emergency department for evaluation of chest tightness, states he has a history of heart attack, he is somnolent bordering on lethargic, states he is on metoprolol lisinopril, is acting almost intoxicated and very difficult to get history from. He states his been going on for 6 months but worsening over the past 15 days. 10 days. He went to an urgent care today who told him to come here. He was dropped off by a friend and no collateral history is available. Related Data Home Medications Medication Instructions Recorded Confirmed aminophylline 07/01/18 hydroxyzine HCl 50 mg PO TID PRN 07/01/18 07/01/18 lisinopril 20 mg PO BID 07/01/18 07/01/18 Previous Rx's Medication Instructions Recorded ibuprofen 600 mg PO Q8H PRN #30 tab 07/01/18 sulfamethoxazole-trimethoprim 1 tab PO Q12H #20 tab 07/01/18 [Bactrim DS] tamsulosin [Flomax] 0.4 mg PO DAILY #3 cap 07/01/18 Allergies Allergy/AdvReac Type Severity Reaction Status Date / Time No Known Allergies Allergy Uncoded 06/20/17 15:51 Review of Systems ROS: all other systems reviewed are negative [facility] Social History Social History Smoking Status: Current every day smoker Tobacco Type: Cigarettes How Often Do You Have a Drink Containing Alcohol: Never Immunization History Tetanus Immunization: Unsure Hx Influenza Vaccine This Season: No Exam Narrative Exam Narrative: GENERAL: Well-developed lethargic patient. SKIN: Focused skin assessment warm/dry. HEAD: Atraumatic. Normocephalic. EYES: Pupils equal and round. No scleral icterus. No injection or drainage. ENT: No nasal bleeding or discharge. Mucous membranes pink and moist. NECK: Trachea midline. No JVD. CARDIOVASCULAR: Extremely bradycardic. 2+ bilateral pulses in all 4 extremities.. No murmur appreciated. RESPIRATORY: No accessory muscle use. Clear to auscultation. Breath sounds equal bilaterally. GASTROINTESTINAL: Abdomen soft, non-tender, nondistended. Hepatic and splenic margins not palpable. MUSCULOSKELETAL: No obvious deformities. No clubbing. No cyanosis. No edema. NEUROLOGICAL: Lethargic but awake, GCS of 13, opens eyes to verbal, garbled speech. follows commands in all 4 extremities. Cranial nerves II through XII grossly intact. PSYCHIATRIC: Appropriate mood and affect; insight and judgment normal. Course Initial Documented Vital Signs Temperature 98.0 F 07/11/18 14:23 Pulse Rate 38 L 07/11/18 14:23 Respiratory Rate 12 07/11/18 14:23 Pulse Oximetry 97 07/11/18 14:23 Last Documented Vital Signs Temperature 98.0 F 07/11/18 14:23 Pulse Rate 43 L 07/11/18 17:27 Respiratory Rate 19 07/11/18 17:27 Blood Pressure 98/58 L 07/11/18 17:27 Pulse Oximetry 94 L 07/11/18 17:27 Critical Care Time Critical Care Time: Yes Total Critical Care Time: 65 Attestation: Aggregate critical care time was 65 minutes. Time to perform other separately billable procedures was not included in the critical care time. My time did not include minutes spent treating any other patients simultaneously or on activities that did not directly contribute to the patient's treatment. The services I provided to this patient were to treat and/or prevent clinically significant deterioration that could result in: , disability, organ failure I provided critical care services requiring my management, as noted below: Chart data review, documentation time, medication orders and management, vital sign assessments/reviewing monitor data, ordering and reviewing lab tests, ordering and interpreting/reviewing x-rays and diagnostic studies, care of the patient and discussion of the patient with the admitting physicians. Medical Decision Making MDM Narrative Medical decision making narrative: Gwen initially a GCS of 13 (v4,M6,e3) he did have bradycardia in the mid 30s about 36. EKG did read as junctional rhythm however it appears to be sinus for me and this was confirmed by Dr. Zee 's review of the x-ray as well. Patient fairly slurred speech on arrival, he states his symptoms been going on for a week and a half but really over 6 months just gradually worsening over the weekend. He became more somnolent as his visit in the ER progressed, he was given doses of atropine to a total of 2 mg with no effect, I attempted to pace him transcutaneously up to 100 mA with electrical capture but no mechanical capture. Dose of dopamine was recommended by cardiology and started on drip with minimal response. He was minimally acidotic and was given an amp of bicarb, sugar was normal, he was given a dose of Narcan at 2 mg. Call poison control recommends glucagon as well, 5 mg glucagon was given with some response. His heart rate climbed to 50 and his blood pressure climbed on map of 75-80. This had to be repeated once in the emergency department, started on epinephrine drip with consultation with Dr. Elaine Vargas the critical care department. Intubated after her initial evaluation which patient now a GCS of [id number]=9. Prior to intubation he did follow commands in all 4 extremities. this patient is critically ill, he does have BUN 74 creatinine of 6.0, this probably from poor perfusion to the kidneys. He does appear euvolemic, 500 cc bolus was also given in the emergency department with no response in blood pressure, Dr. Elaine Vargas that an additional liter which was pressure back down again with no response. The history does not support but the patient did tell me he was on 100 mg metoprolol, Dr. Zee seen at bedside a cursory bedside ultrasound of his heart was performed did show bradycardia with what appeared to be a normal EF. An official echocardiogram has been ordered. Dr. Zee states that according the last augmentation at their office he was on 25 mg of metoprolol twice daily. I do not know if this is enough metoprolol to support his diagnosis of probable beta-macario overdose but it is my working diagnosis with this patient. An insulin drip was ordered and considered at high dose 1 U/kg but was not actually initiated. Tylenol salicylate and alcohol levels were added after admission. I have arroused patient multiple times on vigorous painful stimuli prior to intubation and asked the patient if he had taken anything and he declined multiple times. Medical Screen Exam Complete: Yes Emergency Medical Condition: Yes Lab Data Result diagrams: 07/11/18 14:40 07/11/18 14:40 Lab Results 07/11/18 07/11/18 07/11/18 Range/Units 14:40 14:40 14:40 WBC 11.1 H (4.0-11.0) th/mm3 RBC 4.35 L (4.50-5.90) mil/mm3 Hgb 14.5 (13.0-17.0) gm/dL Hct 42.9 (39.0-51.0) % MCV 98.8 (80.0-100.0) fL MCH 33.4 (27.0-34.0) pg MCHC 33.8 (32.0-36.0) % RDW 14.2 (11.6-17.2) % Plt Count 177 (150-450) th/mm3 MPV 9.8 (7.0-11.0) fL Neut % (Auto) 52.6 (16.0-70.0) % Lymph % (Auto) 33.1 (9.0-44.0) % Barbour % (Auto) 9.4 H (0.0-8.0) % Eos % (Auto) 4.4 H (0.0-4.0) % Baso % (Auto) 0.5 (0.0-2.0) % Neut # (Auto) 5.8 (1.8-7.7) th/mm3 Lymph # (Auto) 3.7 (1.0-4.8) th/mm3 Barbour # (Auto) 1.0 H (0.0-0.9) th/mm3 Eos # (Auto) 0.5 H (0.0-0.4) th/mm3 Baso # (Auto) 0.1 (0.0-0.2) th/mm3 WBC Differential . Differential Comment Auto diff final Puncture Site Patient Temperature O2 Saturation (90-100) % ABG pH (7.380-7.420) ABG pCO2 (38-42) mmHg ABG pO2 (61-120) mmHg ABG HCO3 (22-26) mmol/L ABG O2 Content (12.0-20.0) Vol % ABG Base Excess (-2-2) mmol/L ABG Methemoglobin (0-2) % Ronni Test Hemoglobin (12.0-16.0) G/DL Carboxyhemoglobin (0-4) % O2 Delivery Device Liter Flow L/M Vent Setting Inspired O2 % Critical Value Sodium 136 (136-145) meq/L Potassium 4.9 (3.5-5.1) meq/L Chloride 103 (98-107) meq/L Carbon Dioxide 20.1 L (21.0-32.0) meq/L Anion Gap 13 (5-15) meq/L BUN 74 H (7-18) mg/dL Creatinine 6.02 H (0.60-1.30) mg/dL Estimated GFR 10 L (>89) mL/min POC Glucose (68-110) mg/dl Random Glucose 97 (74-106) mg/dL Calcium 10.4 H (8.5-10.1) mg/dL Total Bilirubin 0.4 (0.2-1.0) mg/dL AST 65 H (15-37) U/L ALT 37 (12-78) U/L Alkaline Phosphatase 91 (45-117) U/L Troponin I Less than 0.02 L (0.02-0.05) ng/mL Total Protein 6.9 (6.4-8.2) g/dL Albumin 4.0 (3.4-5.0) g/dL Digoxin Less than 0.1 L (0.8-2.0) ng/mL Serum Alcohol Less than 3 Cancelled (0-5) mg/dL 07/11/18 07/11/18 07/11/18 Range/Units 14:40 15:12 15:26 WBC (4.0-11.0) th/mm3 RBC (4.50-5.90) mil/mm3 Hgb (13.0-17.0) gm/dL Hct (39.0-51.0) % MCV (80.0-100.0) fL MCH (27.0-34.0) pg MCHC (32.0-36.0) % RDW (11.6-17.2) % Plt Count (150-450) th/mm3 MPV (7.0-11.0) fL Neut % (Auto) (16.0-70.0) % Lymph % (Auto) (9.0-44.0) % Barbour % (Auto) (0.0-8.0) % Eos % (Auto) (0.0-4.0) % Baso % (Auto) (0.0-2.0) % Neut # (Auto) (1.8-7.7) th/mm3 Lymph # (Auto) (1.0-4.8) th/mm3 Barbour # (Auto) (0.0-0.9) th/mm3 Eos # (Auto) (0.0-0.4) th/mm3 Baso # (Auto) (0.0-0.2) th/mm3 WBC Differential Differential Comment Puncture Site Right radial Patient Temperature 98.6 O2 Saturation 94 (90-100) % ABG pH 7.28 L* (7.380-7.420) ABG pCO2 42 (38-42) mmHg ABG pO2 122 H (61-120) mmHg ABG HCO3 19 L (22-26) mmol/L ABG O2 Content 18.0 (12.0-20.0) Vol % ABG Base Excess -6.3 L (-2-2) mmol/L ABG Methemoglobin 1.3 (0-2) % Ronni Test Present Hemoglobin 13.5 (12.0-16.0) G/DL Carboxyhemoglobin 3.5 (0-4) % O2 Delivery Device Nasal cannula Liter Flow 2.00 L/M Vent Setting Inspired O2 21 % Critical Value Yes Sodium (136-145) meq/L Potassium (3.5-5.1) meq/L Chloride (98-107) meq/L Carbon Dioxide (21.0-32.0) meq/L Anion Gap (5-15) meq/L BUN (7-18) mg/dL Creatinine (0.60-1.30) mg/dL Estimated GFR (>89) mL/min POC Glucose 104 (68-110) mg/dl Random Glucose (74-106) mg/dL Calcium (8.5-10.1) mg/dL Total Bilirubin (0.2-1.0) mg/dL AST (15-37) U/L ALT (12-78) U/L Alkaline Phosphatase (45-117) U/L Troponin I (0.02-0.05) ng/mL Total Protein (6.4-8.2) g/dL Albumin (3.4-5.0) g/dL Digoxin Cancelled (0.8-2.0) ng/mL Serum Alcohol (0-5) mg/dL 07/11/18 Range/Units 16:54 WBC (4.0-11.0) th/mm3 RBC (4.50-5.90) mil/mm3 Hgb (13.0-17.0) gm/dL Hct (39.0-51.0) % MCV (80.0-100.0) fL MCH (27.0-34.0) pg MCHC (32.0-36.0) % RDW (11.6-17.2) % Plt Count (150-450) th/mm3 MPV (7.0-11.0) fL Neut % (Auto) (16.0-70.0) % Lymph % (Auto) (9.0-44.0) % Barbour % (Auto) (0.0-8.0) % Eos % (Auto) (0.0-4.0) % Baso % (Auto) (0.0-2.0) % Neut # (Auto) (1.8-7.7) th/mm3 Lymph # (Auto) (1.0-4.8) th/mm3 Barbour # (Auto) (0.0-0.9) th/mm3 Eos # (Auto) (0.0-0.4) th/mm3 Baso # (Auto) (0.0-0.2) th/mm3 WBC Differential Differential Comment Puncture Site Right radial Patient Temperature 98.6 O2 Saturation 89 L* (90-100) % ABG pH 7.30 L (7.380-7.420) ABG pCO2 42 (38-42) mmHg ABG pO2 68 (61-120) mmHg ABG HCO3 20 L (22-26) mmol/L ABG O2 Content 17.5 (12.0-20.0) Vol % ABG Base Excess -5.3 L (-2-2) mmol/L ABG Methemoglobin 0.8 (0-2) % Ronni Test Present Hemoglobin 14.0 (12.0-16.0) G/DL Carboxyhemoglobin 3.1 (0-4) % O2 Delivery Device Ventilator Liter Flow L/M Vent Setting Vac/16/550/+5 Inspired O2 30 % Critical Value Yes Sodium (136-145) meq/L Potassium (3.5-5.1) meq/L Chloride (98-107) meq/L Carbon Dioxide (21.0-32.0) meq/L Anion Gap (5-15) meq/L BUN (7-18) mg/dL Creatinine (0.60-1.30) mg/dL Estimated GFR (>89) mL/min POC Glucose (68-110) mg/dl Random Glucose (74-106) mg/dL Calcium (8.5-10.1) mg/dL Total Bilirubin (0.2-1.0) mg/dL AST (15-37) U/L ALT (12-78) U/L Alkaline Phosphatase (45-117) U/L Troponin I (0.02-0.05) ng/mL Total Protein (6.4-8.2) g/dL Albumin (3.4-5.0) g/dL Digoxin (0.8-2.0) ng/mL Serum Alcohol (0-5) mg/dL Imaging Data Radiologist's impression: Chest X-Ray 07/11/18 14:44 CONCLUSION: Negative examination. Chest X-Ray 07/11/18 16:40 CONCLUSION: Interval intubation with adequate aeration of the lungs. Discharge Plan Discharge Disposition Patient Disposition: 30 Still Patient Discharge Details Diagnosis: Symptomatic bradycardia, Shock Physicians Team ED Provider: Casper Braga Primary Care Provider: UNKNOWN, Attending Provider: Yi Lorenzo Other Providers: Leiyd Zee Status ED Status: Admitted Patient
[2018-07-11 15:29] LABS: Baso # (Auto) 0.1 th/mm3 (0.0-0.2); Baso % (Auto) 0.5 % (0.0-2.0); Eos # (Auto) 0.5 th/mm3 (0.0-0.4); Eos % (Auto) 4.4 % (0.0-4.0); Hematocrit 42.9 % (39.0-51.0); Hemoglobin 14.5 gm/dL (13.0-17.0); Lymph # (Auto) 3.7 th/mm3 (1.0-4.8); Lymph % (Auto) 33.1 % (9.0-44.0); Mean Corpuscular HGB Conc 33.8 % (32.0-36.0); Mean Corpuscular Hemoglobin 33.4 pg (27.0-34.0); Mean Corpuscular Volume 98.8 fL (80.0-100.0); Mean Platelet Volume 9.8 fL (7.0-11.0); Mono % (Auto) 9.4 % (0.0-8.0); Neut # (Auto) 5.8 th/mm3 (1.8-7.7); Neut % (Auto) 52.6 % (16.0-70.0); Platelet Count 177 th/mm3 (150-450); Red Blood Count 4.35 mil/mm3 (4.50-5.90); Red Cell Distribution Width 14.2 % (11.6-17.2); White Blood Count 11.1 th/mm3 (4.0-11.0)
[2018-07-11 15:32] LABS: ABG Base Excess -6.3 mmol/L (-2-2); ABG PCO2 42 mmHg (38-42); ABG PO2 122 mmHg (61-120)
[2018-07-11] MEDS ORDERED: Sodium Bicarbonate 8.4% Inj 50 MEQ/50 ML Syringe IV.PUSH ONE (15:35)
[2018-07-11] MEDS ORDERED: Norepinephrine Inj 4 MG/4 ML Ampul ONE (15:35)
[2018-07-11] MEDS ORDERED: DOPamine 800 MG/500 ML Premix 800 MG/500 ML PLAST..BAG IV.CONT PRN (15:42)
[2018-07-11] MEDS ORDERED: DOPamine 400 MG/250 ML Premix 400 MG/250 ML BAG IV.CONT ONE (15:46)
--- NOTE | 2018-07-11 15:49 | XR ---
EXAM DATE: 07/11/2018 3:45 PM EDT AGE/SEX: 58 years / Male INDICATIONS: Chest pain. CLINICAL DATA: This is the patient's initial encounter. Patient reports that signs and symptoms have been present for 1 day and indicates a pain score of Nonresponsive. MEDICAL/SURGICAL HISTORY: . Testicular pain. Hypertension. Smoker. Cholecystectomy. COMPARISON: No prior exams available for comparison. FINDINGS: A single AP view of the chest demonstrates the lungs to be symmetrically hypoinflated without evidenc e of mass, infiltrate or effusion. The cardiomediastinal contours are unremarkable. Osseous structu res are intact. Anterior cervical fusion hardware is present. CONCLUSION: Negative examination. Electronically signed by: Ronit Moran MD 07/11/2018 3:48 PM EDT
[2018-07-11 15:51] LABS: Alanine Aminotransferase 37 U/L (12-78); Alkaline Phosphatase 91 U/L (45-117); Anion Gap 13 meq/L (5-15); Aspartate Aminotransferase 65 U/L (15-37); Blood Urea Nitrogen 74 mg/dL (7-18); Calcium 10.4 mg/dL (8.5-10.1); Carbon Dioxide 20.1 meq/L (21.0-32.0); Chloride 103 meq/L (98-107); Glomerular Filtration Rate 10 mL/min (>89); Glucose,Random 97 mg/dL (74-106); Sodium 136 meq/L (136-145); Total Protein 6.9 g/dL (6.4-8.2)
[2018-07-11] MEDS ORDERED: Insulin Regular (For Infusion) 100 UNIT in Sodium Chlor 0.9% Inj 99 ML IV.CONT PRN (15:55)
[2018-07-11] MEDS ORDERED: Dextrose 50% in Water 50 ML Vial IV.PUSH PRN (15:55)
[2018-07-11 15:58] LABS: Potassium 4.9 meq/L (3.5-5.1)
[2018-07-11] MEDS ORDERED: Etomidate Inj 40 MG/20 ML Vial IV.PUSH ONE (16:25)
[2018-07-11] MEDS ORDERED: Magnesium Sulfate Inj 2 GM in Sodium Chlor 0.9% Inj 96 ML IV.SIG PRN (16:35)
[2018-07-11] MEDS ORDERED: Potassium Phosphate 500 MG Soluble Tablet PO PRN ×2 (16:35)
[2018-07-11] MEDS ORDERED: Magnesium Oxide 400 MG Tablet PO PRN (16:35)
[2018-07-11] MEDS ORDERED: Potassium Phosphate Inj 30 MMOL in Sodium Chlor 0.9% Inj 250 ML IV.SIG PRN (16:35)
[2018-07-11] MEDS ORDERED: Magnesium Sulfate Inj 4 GM in Sodium Chlor 0.9% Inj 92 ML IV.SIG PRN (16:35)
[2018-07-11] MEDS ORDERED: Potassium Chlor 40 mEq Premix 40 MEQ/100 ML PIGGYBACK IV.SIG PRN ×2 (16:35)
[2018-07-11] MEDS ORDERED: Potassium Chlor 20 mEq Premix 20 MEQ/100 ML PIGGYBACK IV.SIG PRN ×2 (16:35)
[2018-07-11] MEDS ORDERED: Sodium Phosphate Inj 30 MMOL in Sodium Chlor 0.9% Inj 250 ML IV.SIG PRN (16:35)
[2018-07-11] MEDS ORDERED: Bisacodyl 10 MG Supp RECTAL PRN (16:35)
[2018-07-11] MEDS ORDERED: Potassium Chloride 25 MEQ Effervescent Tablet PO PRN (16:35)
[2018-07-11] MEDS ORDERED: Etomidate Inj 20 MG/10 ML Ampul IV.PUSH ONE (16:37)
--- NOTE | 2018-07-11 16:59 | XR ---
EXAM DATE: 07/11/2018 4:56 PM EDT AGE/SEX: 58 years / Male INDICATIONS: Post intubation. CLINICAL DATA: This is the patient's initial encounter. Patient reports that signs and symptoms have been present for 1 day and indicates a pain score of Nonresponsive. MEDICAL/SURGICAL HISTORY: . Testicular pain. Hypertension. Smoker. Cholecystectomy. COMPARISON: C, CHEST 1V SINGLE AP, 07/11/2018. . FINDINGS: There has been interval placement of endotracheal tube with the tip just beyond the level of the clav icles and directed towards the right main bronchus, however, this is positioned well above the level of the oumou. The lungs are adequately inflated. Gastric tube being extends beyond the imaged portio n of the film. Osseous structures appear intact. CONCLUSION: Interval intubation with adequate aeration of the lungs. Electronically signed by: Ronit Moran MD 07/11/2018 4:58 PM EDT
[2018-07-11 17:02] LABS: ABG Base Excess -5.3 mmol/L (-2-2); ABG PCO2 42 mmHg (38-42); ABG PO2 68 mmHg (61-120)
[2018-07-11] MEDS ORDERED: Sod Chloride 0.9% Inj 1,000 ML IV.SIG ONE ×2 (17:15→19:45)
--- NOTE | 2018-07-11 17:40 | P.HPCC ---
History of Present Illness [place] [facility] [place] Care Physician: UNKNOWN Chief Complaint: Chest pain History of Present Illness: 58yM who presented to the ED complaining of chest tightness. He told the ED physician that he takes metoprolol 100 mg BID and was found to be confused, lethargic, with garbled speech. He became bradycardic to the 30s and somnolent. He was given narcan with no improvement in mentation; HR unresponsive to atropine; an attempt at transcutaneous pacing was unsuccessful. After discussion with the poison control center, glucagon was given for possible beta macario overdose with increase in heart rate to 50s. He was started on a dopamine gtt for hypotension and required intubation for airway protection. There are no friends or family available to provide further information; the patient is intubated and I am unable to elicit further details of HPI, ROS, PMH/ PSH/ allergies/ family history/ social history. - Diagnosis (1) Encephalopathy acute (2) Acute renal failure (3) Hypothermia (4) Symptomatic bradycardia (5) Shock (6) Respiratory failure requiring intubation (7) Cocaine abuse Inpatient Certification: I certify that the inpatient services were ordered in accordance with Medicare regulations governing the order. This includes certification that hospital inpatient services are reasonable and necessary and in the case of services not specified as inpatient-only under 42 CFR 419.22(n), that they are appropriately provided as inpatient services in accordance to with the 2-midnight benchmark under 43 CFR 412.3(e) Estimated Total Length of Stay (Days): 7 Plans for Post Hospital Care: Not yet determined Review of Systems unobtainable due to endotracheal tube PMFSH - History History Provided By: Patient - Medical / Surgical Hx Neg / Unobtainable Medical Problems Denied: Unable to Obtain Surgical History: Unable to Obtain - Medical History Medical History: Medical History (Last Reviewed 07/11/18 @ 17:36 by Yi Lorenzo DO) HTN (hypertension) - Surgical History Surgical History: Surgical History (Last Reviewed 07/11/18 @ 17:36 by Yi Lorenzo DO) History of back surgery - Social History I have reviewed the patient's Social History: Yes - Tobacco History Tobacco Use In Past 30 Days: No Smoking Status: Current every day smoker Tobacco Type: Cigarettes - Alcohol History How Often Do You Have a Drink Containing Alcohol: Never - Immunization History Tetanus Immunization: Unsure Hx Influenza Vaccine This Season: No Medications and Allergies Active Medications: Active Medications Acetaminophen (Tylenol) 650 mg PO Q6H PRN PRN Reason: PAIN 1-10 AND/OR FEVER >101F Al Hydroxide/Mg Hydroxide (Milk Of Magnesia Liq) 30 ml PO Q12H PRN PRN Reason: Mild Constipation Bisacodyl (Dulcolax Supp) 10 mg RECTAL DAILY PRN PRN Reason: SEVERE CONSITIPATION Chlorhexidine Gluconate (Chlorhexidine 2% Cloth) 3 pack TOPICAL DAILY@0400 PRN PRN Reason: Extra cloth needed Stop: 07/17/18 03:59 Chlorhexidine Gluconate (Chlorhexidine 2% Cloth) 3 pack TOPICAL DAILY@0400 ACE Stop: 07/17/18 03:59 Chlorhexidine Gluconate (Peridex 0.12% Oral Kit) 15 ml OROPHARYNG BID@0800, 2000 [facility] Dextrose (D50w Vial) 50 ml IV.PUSH UNSCH PRN PRN Reason: PER HYPOGLYCEMIA PROTOCOL Famotidine (Pepcid) 20 mg PO BID ACE Famotidine (Pepcid Pf Inj) 20 mg IV.PUSH Q12HR ACE Heparin Sodium (Porcine) (Heparin Inj) 5,000 units SQ Q8H [facility] Sodium Chloride (Ns Inj) 500 mls @ 0 mls/hr IV.SIG BOLUS [facility] Last Infusion: 07/11/18 16:32 Dose: Infused Dopamine HCl/Dextrose (Dopamine 800 Mg/500 Ml Premix) 800 mg in 500 mls @ 9.44 mls/hr IV.CONT TITRATE PRN; Protocol PRN Reason: Per Protocol Sodium Chloride (Ns Inj) 1,000 mls @ 84 mls/hr IV.CONT .[id number] [facility] Fat Emulsion Intravenous (Intralipid 20% Inj) 125 mls @ 2,500 mls/hr IV.SIG ONCE ONE Stop: 07/11/18 18:02 Epinephrine HCl 2 mg/ Dextrose 250 mls @ 22.5 mls/hr IV.CONT TITRATE PRN; Protocol PRN Reason: Per Protocol Last Admin: 07/11/18 17:21 Dose: 3 mcg/min, 22.5 mls/hr Lactulose (Lactulose Liq) 30 ml PO DAILY PRN PRN Reason: SEVERE CONSITIPATION Ondansetron HCl (Zofran Inj) 4 mg IV.PUSH Q6H PRN PRN Reason: NAUSEA OR VOMITING Senna/Docusate Sodium (Cinthia-Colace) 1 tab PO BID ACE Sennosides (Senokot) 17.2 mg PO Q12H PRN PRN Reason: Moderate Constipation Sodium Chloride (Ns Flush) 2 ml IV.FLUSH BID ACE Sodium Chloride (Ns Flush) 2 ml IV.FLUSH PRN PRN PRN Reason: FLUSH AFTER USING IV ACCESS Terbutaline Sulfate (Brethine Inj) 1 mg SQ ONCE PRN PRN Reason: Extravasation Allergies Allergy/AdvReac Type Severity Reaction Status Date / Time No Known Allergies Allergy Unverified 07/11/18 18:13 Home Medications Medication Instructions Recorded Confirmed Type aminophylline 07/01/18 History hydroxyzine HCl 50 mg PO TID PRN 07/01/18 07/01/18 History lisinopril 20 mg PO BID 07/01/18 07/01/18 History Results - Labs CBC & Chem 7: 07/11/18 14:40 07/11/18 14:40 Labs: Short CBC 07/11/18 Range/Units 14:40 WBC 11.1 H (4.0-11.0) th/mm3 Hgb 14.5 (13.0-17.0) gm/dL Hct 42.9 (39.0-51.0) % Plt Count 177 (150-450) th/mm3 BMP 07/11/18 14:40 Sodium 136 Potassium 4.9 Chloride 103 Carbon Dioxide 20.1 L BUN 74 H Creatinine 6.02 H Calcium 10.4 H Cardiac Enzymes 07/11/18 Range/Units 14:40 Troponin I Less than 0.02 L (0.02-0.05) ng/mL Liver Function 07/11/18 Range/Units 14:40 Total Bilirubin 0.4 (0.2-1.0) mg/dL AST 65 H (15-37) U/L ALT 37 (12-78) U/L Alkaline Phosphatase 91 (45-117) U/L Albumin 4.0 (3.4-5.0) g/dL - Imaging Impressions Chest X-Ray 07/11/18 14:44 CONCLUSION: Negative examination. Chest X-Ray 07/11/18 16:40 CONCLUSION: Interval intubation with adequate aeration of the lungs. - ECG Attestation: I personally reviewed and interpreted this ECG as follows: Interpretation: Rate: 38 BPM Rhythm: Sinus [place]: Normal Intervals: Normal intervals, no blocks, QTc 400 ms Q waves: V2 T waves: Upright, no inversions ST segments: No elevations or depressions Impression: Sinus bradycardia, no heart block, patient was also bradycardic on EKG from 06/20/2017. Exam Vital signs: Vital Signs 07/11/18 14:23 07/11/18 14:44 07/11/18 14:46 Temperature 98.0 F Pulse Rate 38 L 40 L 39 L Respiratory Rate 12 14 Blood Pressure 124/74 Pulse Oximetry 97 96 07/11/18 14:49 07/11/18 14:53 07/11/18 15:00 Temperature Pulse Rate 39 L 38 L Respiratory Rate 15 15 16 Blood Pressure 96/55 L 91/60 L Pulse Oximetry 96 98 07/11/18 15:15 07/11/18 15:45 07/11/18 16:05 Temperature Pulse Rate 38 L 38 L Respiratory Rate 16 Blood Pressure 92/63 L 89/56 L 92/57 L Pulse Oximetry 97 94 L 07/11/18 16:26 07/11/18 16:49 07/11/18 17:11 Temperature Pulse Rate 47 L 43 L 38 L Respiratory Rate 16 16 Blood Pressure 113/67 107/68 81/53 L Pulse Oximetry 96 93 L 92 L 07/11/18 17:27 Temperature Pulse Rate 43 L Respiratory Rate 19 Blood Pressure 98/58 L Pulse Oximetry 94 L Intake & Output 07/10/18 07/11/18 07/11/18 18:59 06:59 18:59 Intake Total 500 / 500 Balance 500 / 500 Weight 83.915 kg Intake: IV 500 / 500 NS Inj 500 ML @ Wide Open IV. 500 / 500 SIG BOLUS [facility] Rx#:[id number] Narrative: GEN: Ill-appearing, somnolent, intubated HEENT: Pupils 5 mm and sluggishly reactive bilaterally, NCAT NECK: Trachea midline CARDIO: Chris to 30s, regular RESP: Mechanical breath sounds bilaterally ABD: Soft, non-distended EXT: No lower extremity edema SKIN: Cool, dry, not flushed NEURO: GCS prior to intubation 8 ([id number]), not protecting airway, following intubation GCS 3T PSYCH: Unable to assess Caprini VTE Risk Assessment Caprini VTE Risk Assessment: Moderate/High Risk (score >= 2) Caprini Risk Assessment Model: Point Value = 1 Point Value = 2 Point Value = 3 Point Value = 5 Age 41-60 Minor surgery BMI > 25 kg/m2 Swollen legs Varicose veins or History of unexplained or recurrent spontaneous Oral contraceptives or hormone replacement Sepsis (< 1 month) Serious lung disease, including pneumonia (< 1 month) Abnormal pulmonary function Acute myocardial infarction Congestive heart failure (< 1 month) History of inflammatory bowel disease Medical patient at bed rest Age 61-74 Arthroscopic surgery Major open surgery (> 45 min) Laparoscopic surgery (> 45 min) Malignancy Confined to bed (> 72 hours) Immobilizing plaster cast Central venous access Age >= 75 History of VTE Family history of VTE Factor V Leiden Prothrombin [id number] Lupus anticoagulant Anticardiolipin antibodies Elevated serum homocysteine Heparin-induced thrombocytopenia Other congenital or acquired thrombophilia Stroke (< 1 month) Elective arthroplasty Hip, pelvis, or leg fracture Acute spinal cord injury (< 1 month) Prophylaxis Regimen: Total Risk Factor Score Risk Level Prophylaxis Regimen 0-1 Low Early ambulation 2 Moderate Order ONE of the following: *Sequential Compression Device (SCD) *Heparin 5000 units SQ BID 3-4 Higher Order ONE of the following medications: *Heparin 5000 units SQ TID *Enoxaparin/Lovenox 40 mg SQ daily (WT < 150 kg, CrCl > 30 mL/min) *Enoxaparin/Lovenox 30 mg SQ daily (WT < 150 kg, CrCl > 10-29 mL/min) *Enoxaparin/Lovenox 30 mg SQ BID (WT < 150 kg, CrCl > 30 mL/min) AND/OR *Sequential Compression Device (SCD) 5 or more Highest Order ONE of the following medications: *Heparin 5000 units SQ TID (Preferred with Epidurals) *Enoxaparin/Lovenox 40 mg SQ daily (WT < 150 kg, CrCl > 30 mL/min) *Enoxaparin/Lovenox 30 mg SQ daily (WT < 150 kg, CrCl > 10-29 mL/min) *Enoxaparin/Lovenox 30 mg SQ BID (WT < 150 kg, CrCl > 30 mL/min) AND *Sequential Compression Device (SCD) Assessment and Plan - Problem List (1) Encephalopathy acute Code(s): G93.40 - Encephalopathy, unspecified Status: Acute (2) Acute renal failure Code(s): N17.9 - Acute kidney failure, unspecified Status: Acute (3) Hypothermia Code(s): T68.XXXA - Hypothermia, initial encounter Status: Acute (4) Symptomatic bradycardia Code(s): R00.1 - Bradycardia, unspecified Status: Acute (5) Shock Code(s): R57.9 - Shock, unspecified Status: Acute (6) Respiratory failure requiring intubation Code(s): J96.90 - Respiratory failure, unspecified, unspecified whether with hypoxia or hypercapnia Status: Acute (7) Cocaine abuse Code(s): F14.10 - Cocaine abuse, uncomplicated Status: Acute - Assessment and Plan Plan: Assessment: 58yM presenting with chief complaint of chest pain, developed bradycardia and somnolence requiring intubation, found to have acute kidney injury with creatinine of 6, suspected beta macario toxicity. Plan- NEURO: -Currently only ordered fentanyl gtt for pain, would like to see if patient's mental status improves but can certainly start sedation if he needs -CTH significant for white matter hypointensity, unclear if this is acute; stat MRI -Encephalopathic, pupils dilated on exam, no seizure-like activity noted CARDIO: -Bradycardia not responsive to atropine or transcutaneous pacing, but responsive to glucagon * Presumed beta macario toxicity- unclear if this is an intentional/ unintentional overdose or just decreased excretion secondary to renal failure * Will attempt a bolus of intralipid to see if patient's HR is responsive to "lipid rescue" * Another possibility is BRASH syndrome (bradycardia, renal failure, AV opal blockers, shock, hyperkalemia); his serum potassium is 4.9, so he doesn't fit all criteria, but treatment would be catecholamines/ supportive care which we are doing anyway * Currently on dopamine and epinephrine gtts, wean dopamine first as epi will help more with heart rate. If the patient continues to be bradycardic despite epi, can consider adding isoproterenol and/or levo. -2D echo -Check troponin (patient presented about 5 hours ago; if initial trop is negative, will not trend) -EP consulted in ED, appreciate recommendations [place]ULM: [place], [place] [address]/5/30% * Vent bundle -ETT in good position on CXR -Last ABG was checked immediately following intubation, will check another now to titrate vent settings GI: -NPO while in shock F/E/N: -NPO, IVF at maintenance -Also bolused with 2 liters in ED, give another liter now -K+ 4.9, see below RENAL: -Acute renal failure: Creatinine 6.0, had been <1 in 2017 as per previous charts -Patient put out over 1200cc when Campbell was placed, continues to make urine, ? post-obstructive failure (BUN:creat ratio 12:1) -Continue volume resuscitation as needed -K+ 4.9, will check another set of labs now to see if this is increasing or decreasing ID: -Patient initially normothermic on arrival, now rectal temp is 33F * Check blood cultures and lactate * No leukocytosis or shift -UA shows trace LE, no nitrites, 9 WBCs; sent for reflex culture -CXR negative for infiltrate TOX: -Urine drug screen positive for cocaine -Salicylate level minimally positive on arrival, will check another to trend -APAP and alcohol negative -BB toxicity as noted above PROPHY: -Pepcid -SCDs, heparin LINES AND TUBES: -ETT 07/11 -Campbell 07/11 -LIJ triple lumen 07/11 (placed on left in case he needs HD cath at some point) DISPO: Ad[place] to [facility] This patient is critically ill with life-threatening bradycardia, hypotension, renal failure, encephalopathy, and acute hypoxic respiratory failure requiring mechanical ventilation. Counseling/ Coordination of Care: Total critical care time: 122 minutes. This includes examining the patient, gathering history from someone other than the patient (i.e., chart review), discussing the patient's care with other providers, managing the patient's blood pressure and heart rate, titration of ventilator settings, ordering and interpreting radiology studies, ordering and interpreting laboratory studies, managing the patient's pain and sedation requirements, re-evaluation at frequent intervals, and documentation. No less than 95 of these minutes were spent at the bedside resuscitating the patient, and the remainder included chart review and documentation. All critical care time is separate and exclusive of procedures, teaching, and patient/ family updates. Code Status: Full Procedures - Central Line Placement Left IJ Time out performed: Yes Patient placed on monitor/pulse ox: Yes MD prep: mask, gown, gloves Central line prep: Chlorhexidine scrub Local anesthesia used: lidocaine 1% Amount of anesthesia used (mL): 5 Ultrasound used for placement: Yes Central line lumen inserted: triple Post procedure: sutured in place, good blood return, all ports aspirated, flushed, capped, sterile dressing applied Patient tolerated procedure: well, no complications
[2018-07-11] MEDS ORDERED: FAT EMULSION 20% IV.SIG ONE (18:00)
--- NOTE | 2018-07-11 18:00 | CT ---
EXAM DATE: 07/11/2018 5:56 PM EDT AGE/SEX: 58 years / Male INDICATIONS: Altered mental status. CLINICAL DATA: This is the patient's initial encounter. Patient reports that signs and symptoms have been present for 1 day and indicates a pain score of Nonresponsive. MEDICAL/SURGICAL HISTORY: Non-responsive. Non-responsive. RADIATION DOSE: 66.34 CTDI (mGy) COMPARISON: No prior exams available for comparison. TECHNIQUE: CT of the head without contrast. Using automated exposure control and adjustment of the mA and/or kV according to patient size, radiation dose was kept as low as reasonably achievable to ob tain optimal diagnostic quality images. DICOM format image data is available electronically for revi ew and comparison. FINDINGS: Cerebrum: There are extensive areas of decreased attenuation identified within the white matter of t he bilateral superior convexities as well as within the right and left frontal lobes in a periventric ular distribution. The gregory matter appears preserved. The ventricles are normal. No evidence of sulca l effacement, intra-axial or extra-axial fluid collection. No evidence of hemorrhage. Posterior Fossa: The cerebellum and brainstem are intact. The 4th ventricle is midline. The cerebe llopontine angle is unremarkable. Extracranial: The visualized portion of the orbits is intact. Skull: The calvaria is intact. No evidence of skull fracture. CONCLUSION: 1. Extensive areas of white matter hypointensity. This is nonspecific and may represent sequelae of chronic small vessel ischemic change, however, the more focal areas within the superior convexities r aise concern for possible acute abnormality. Recommend further evaluation with MRI. . Electronically signed by: Ronit Moran MD 07/11/2018 5:59 PM EDT
[2018-07-11 18:13] LABS: Bilirubin,Urine Negative (Negative); Clarity,Urine Hazy (Clear); Color,Urine Yellow (Yellw/Straw); Glucose,Urine (UA) Negative (Negative); Hyaline Casts,Urine 7 /lpf (0-3); Leukocyte Esterase,Urine Trace (Negative); Nitrite,Urine Negative (Negative); Specific Gravity,Urine 1.013 (1.002-1.035)
[2018-07-11 18:32] LABS: Amphetamine Screen,Urine Neg (Neg); Barbiturate Screen,Urine Neg (Neg); Cannabinoid Screen,Urine Neg (Neg); Cocaine Screen,Urine Pos (Neg)
[2018-07-11 18:33] LABS: Opiate Screen,Urine Neg (Neg)
[2018-07-11] MEDS: Heparin - SQ 10,000 UNITS/ML Vial SQ SCH (18:38)
[2018-07-11] MEDS: Sod Chloride 0.9% Inj 1,000 ML IV.CONT SCH (18:49)
--- NOTE | 2018-07-11 19:36 | XR ---
EXAM DATE: 07/11/2018 7:30 PM EDT AGE/SEX: 58 years / Male INDICATIONS: Left central line placement. CLINICAL DATA: This is the patient's subsequent encounter. Patient reports that signs and symptoms h ave been present for 4 - 6 days and indicates a pain score of Nonresponsive. MEDICAL/SURGICAL HISTORY: Hypertension. Cholecystectomy. COMPARISON: [facility], CHEST 1V SINGLE AP, 07/11/2018. . FINDINGS: The endotracheal tube has its tip 4 cm above the oumou in good position. A nasogastric tube has its tip below diaphragm. The heart is stable. Mild pulmonary vascular congestion is noted. Hardware is no dede throughout the cervical spine. The left sided central line is directed towards the left arm and t ip is not visualized but is malpositioned at least to the level of the left axillary vein. No pneumot horax is noted. CONCLUSION: 1. Left sided central line is directed towards the left arm and tip is not visualized but is malposi tioned at least to the level of the left axillary vein. No pneumothorax is noted. 2. Mild pulmonary vascular congestion. Electronically signed by: Casper Fiore MD 07/11/2018 7:34 PM EDT
[2018-07-11 19:40] LABS: ABG Base Excess -7.3 mmol/L (-2-2); ABG PCO2 46 mmHg (38-42); ABG PO2 73 mmHG (61-120)
[2018-07-11 19:47] LABS: Hematocrit 45.1 % (39.0-51.0); Hemoglobin 15.6 gm/dL (13.0-17.0); Mean Corpuscular HGB Conc 34.5 % (32.0-36.0); Mean Corpuscular Hemoglobin 34.6 pg (27.0-34.0); Mean Corpuscular Volume 100.3 fL (80.0-100.0); Mean Platelet Volume 9.7 fL (7.0-11.0); Platelet Count 201 th/mm3 (150-450); Red Blood Count 4.49 mil/mm3 (4.50-5.90); Red Cell Distribution Width 14.3 % (11.6-17.2); White Blood Count 16.8 th/mm3 (4.0-11.0)
[2018-07-11] MEDS: Chlorhexidine 0.12% Oral Kit 15 ML UDC OROPHARYNG SCH (19:51)
[2018-07-11 19:57] LABS: Anion Gap 11 meq/L (5-15); Blood Urea Nitrogen 71 mg/dL (7-18); Calcium 9.7 mg/dL (8.5-10.1); Carbon Dioxide 20.2 meq/L (21.0-32.0); Chloride 107 meq/L (98-107); Glomerular Filtration Rate 12 mL/min (>89); Glucose,Random 174 mg/dL (74-106); Magnesium 2.4 mg/dL (1.5-2.5); Phosphorus 3.6 mg/dL (2.5-4.9); Sodium 138 meq/L (136-145)
[2018-07-11] MEDS ORDERED: Chlorhexidine 0.12% Oral Kit 15 ML UDC OROPHARYNG SCH (20:00)
[2018-07-11] MEDS ORDERED: Midazolam Inj 5 MG/ML 1 ML Vial IV.PUSH ONE (20:39)
[2018-07-11] MEDS ORDERED: Midazolam Inj 5 MG/ML 1 ML Vial ONE (20:42)
[2018-07-11] MEDS ORDERED: Calcium Chloride Inj 2 GM in Dextrose 5% in Water Inj 100 ML IV.SIG ONE ×2 (21:00)
--- NOTE | 2018-07-11 21:18 | MR ---
EXAM DATE: 07/11/2018 9:07 PM EDT AGE/SEX: 58 years / Male INDICATIONS: Encephalitis. CLINICAL DATA: This is the patient's initial encounter. Patient reports that signs and symptoms have been present for 1 day and indicates a pain score of Nonresponsive. MEDICAL/SURGICAL HISTORY: Non-responsive. Fusion, cervical. Hip replacement. COMPARISON: [facility] [place], CT HEAD W/O CONTRAST, 07/11/2018. [facility] [place], CT BRAIN W/O CONTRAST, 06/20/2017. . TECHNIQUE: Multiplanar, multisequence examination of the brain was performed without contrast. FINDINGS: Cerebrum: Mild cerebral atrophy is noted. No evidence of midline shift, mass lesion, hemorrhage or a cute infarction. No extraaxial fluid collections are seen. Old lacunar infarcts are noted within th e bilateral basal ganglia. The pituitary gland and suprasellar cistern are normal in configuration. White Matter: Moderate periventricular and subcortical white matter signal abnormalities are noted s uggesting small vessel ischemic changes or demyelination. Posterior Fossa: The cerebellum is intact. There is mild diffuse T2 signal hyperintensity within the caleb suggesting ischemic changes versus edema. The 4th ventricle is midline. The cerebellopontine an gle is unremarkable. The cerebellar tonsils are normal in position. Diffusion Imaging: No focal areas of restricted diffusion are seen. No evidence of acute infarction . Extracranial: The visualized portions of the orbits and paranasal sinuses are unremarkable. CONCLUSION: 1. No acute infarct, acute hemorrhage, midline shift or extra-axial fluid collections. 2. Moderate periventricular and subcortical white matter signal abnormalities which are nonspecific. Small vessel ischemic changes or demyelination should be considered. Encephalitis should be ruled ou t clinically also. 3. Bilateral pontine ischemic changes versus edema. 4. 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 Electronically signed by: Casper Fiore MD 07/11/2018 9:16 PM EDT
[2018-07-11] MEDS: Famotidine 20 MG Tablet PO SCH (21:54)
[2018-07-11] MEDS: Senna/Docusate Sodium 8.6/50 MG Tablet PO SCH (21:54)
[2018-07-11] MEDS: Famotidine PF Inj 20 MG/2 ML Vial IV.PUSH SCH (21:54)
--- NOTE | 2018-07-11 23:48 | US ---
EXAM DATE: 07/11/2018 11:31 PM EDT AGE/SEX: 58 years / Male INDICATIONS: Increased BUN and Creatinine. CLINICAL DATA: This is the patient's initial encounter. Patient reports that signs and symptoms have been present for 1 day and indicates a pain score of 0/10. MEDICAL/SURGICAL HISTORY: Hypertension. Renal calculi. . Back surgery. COMPARISON: [facility] [place], CT ABDOMEN & PELVIS W/O CONTRAST, 07/01/2018. . MEASUREMENTS: Right Kidney:__11.5 x 5.6 x 7.1 cm Left Kidney:__11.4 x 5.5 x 6.1 cm FINDINGS: Right Kidney: Renal cortex is normal in thickness. No evidence of hydronephrosis. Several hyperechoge hazel foci measuring up to 7 mm in the collecting system characteristic of calcified stones. This corre lates with findings on recent CT. 2 simple cysts measuring 12 mm and 8 mm in the midpole. Left Kidney: Renal cortex is normal in thickness. No evidence of hydronephrosis. Several echogenic an d shadowing foci measuring up to 7 mm characteristic of nonobstructing stones. This correlates with f indings on recent CT. 2 simple cysts measuring 10 mm and 9 mm in the upper pole on 8 2 cm cyst in the midpole. There was a 9 mm hyperdense lesion seen in the upper pole of the left kidney on recent CT; there is a simple cyst in this area which measures 7 x 6 mm and correlates with the CT finding.. Bladder: Campbell catheter is present. Bladder decompressed. Other: None. CONCLUSION: 1. No evidence of hydronephrosis on either side. 2. Bilateral renal stones correlate with findings on recent noncontrast CT. 3. The hyperdense lesion seen in the upper pole left kidney has features characteristic of a cyst o n ultrasound and probably represents a proteinaceous cyst. Electronically signed by: Gerard Valdez MD 07/11/2018 11:46 PM EDT
[2018-07-12] MEDS ORDERED: Oral Hygiene Kit OROPHARYNG SCH
[2018-07-12] MEDS: Oral Hygiene Kit OROPHARYNG SCH ×2 (00:51→08:17)
[2018-07-12] MEDS ORDERED: DOPamine 800 MG/500 ML Premix 800 MG/500 ML PLAST..BAG IV.CONT PRN (01:54)
[2018-07-12] MEDS: Heparin - SQ 10,000 UNITS/ML Vial SQ SCH ×3 (02:16→17:48)
[2018-07-12] MEDS: Midazolam 50 MG/50 ML Inj 50 MG/50 ML BAG IV.CONT PRN ×2 (02:16→08:49)
--- NOTE | 2018-07-12 03:02 | P.PCN ---
Date of procedure: 07/12/18 Pre-op diagnosis: shock Post-op diagnosis: same Procedure: Central Line Procedure Note Left internal jugular 7 Citizen Of [place] 20 cm triple lumen catheter Diagnosis: Shock Indications: Need for highly potent vasoactive substances Consent: Emergent Anesthesia: Versed IV Description of the Procedure: Patient's previously placed left internal jugular central venous catheter is malpositioned down the left arm. Patient needs repositioning of this line due to ongoing vasopressor use. The patient was placed in the supine, mild-Trendelenburg position. The area was prepped and draped sterilely 4. Through the existing central venous catheter distal port, a guidewire was inserted easily without resistance. The existing central venous catheter was removed. The area was again reprepped 3. Sterile gloves were changed. The area was redraped. The guidewire was confirmed in the correct position via cardiac ectopy. A 7 Citizen [place], 20 cm catheter were advanced over the guidewire without resistance. All ports were aspirated and flushed, and had brisk blood return. The line was secured at the skin using a non- suture StatLock device. A Biopatch and Transparent sterile dressing were applied. There were no immediate complications noted. There was minimal EBL. The patient tolerated the procedure well. Ultrasound guidance was not used for this procedure. A Chest x-ray has been ordered. I personally performed the procedure.
--- NOTE | 2018-07-12 03:03 | P.PCN ---
Date of procedure: 07/12/18 Pre-op diagnosis: Shock Post-op diagnosis: same (Shock) Procedure: Procedure: Arterial Line Placement Left radial arterial line Diagnosis: Shock Indications: Need for beat to beat hemodynamic monitoring Consent: Emergent Description of the Procedure: The left wrist was prepped and draped sterilely. 1% lidocaine was used for local anesthesia. The pulse was located and a needle was advanced into the artery. A 20 gauge, 12 cm catheter was advanced into the artery using a modified Seldinger technique. The catheter was sutured to the skin and a sterile dressing was applied. The catheter was connected to a pressure transducer and an arterial waveform was noted. There were no immediate complications noted. There was minimal EBL. I personally performed the procedure.
[2018-07-12] MEDS ORDERED: Chlorhexidine Gluconate 2% 1 Pack (2 Cloths) TOPICAL PRN (04:00)
--- NOTE | 2018-07-12 04:08 | XR ---
EXAM DATE: 07/12/2018 4:05 AM EDT AGE/SEX: 58 years / Male INDICATIONS: Central line placement, left IJ. CLINICAL DATA: This is the patient's subsequent encounter. Patient reports that signs and symptoms h ave been present for 3 days and indicates a pain score of 0/10. MEDICAL/SURGICAL HISTORY: Hypertension. Renal calculi. None. COMPARISON: C, CHEST 1V SINGLE AP, 07/11/2018. . FINDINGS: ET tube tip well above the oumou. Left internal jugular catheter tip projects over the distal superi or vena cava. Gastric tube tip and side-port project within the stomach. There are some patchy infilt rates in the central and lower left lung without consolidation. No evidence of pneumothorax. The righ t lung is clear. The heart is normal in size. CONCLUSION: 1. Left internal jugular catheter tip and ET tube in good position. 2. Patchy infiltrates in the central and lower left lung. Electronically signed by: Gerard Valdez MD 07/12/2018 4:06 AM EDT
[2018-07-12 06:41] LABS: Baso % (Auto) 0.3 % (0.0-2.0); Eos % (Auto) 0.2 % (0.0-4.0); Hematocrit 39.7 % (39.0-51.0); Hemoglobin 13.3 gm/dL (13.0-17.0); Lymph % (Auto) 10.1 % (9.0-44.0); Mean Corpuscular HGB Conc 33.6 % (32.0-36.0); Mean Corpuscular Hemoglobin 33.5 pg (27.0-34.0); Mean Corpuscular Volume 99.7 fL (80.0-100.0); Mean Platelet Volume 9.7 fL (7.0-11.0); Mono # (Auto) 0.8 th/mm3 (0.0-0.9); Mono % (Auto) 8.1 % (0.0-8.0); Neut # (Auto) 7.8 th/mm3 (1.8-7.7); Neut % (Auto) 81.3 % (16.0-70.0); Platelet Count 154 th/mm3 (150-450); Red Blood Count 3.98 mil/mm3 (4.50-5.90); Red Cell Distribution Width 14.3 % (11.6-17.2); White Blood Count 9.6 th/mm3 (4.0-11.0)
[2018-07-12 07:05] LABS: INR 1.1 Ratio; Prothrombin Time 10.8 sec (9.8-11.6)
[2018-07-12 07:12] LABS: Alanine Aminotransferase 30 U/L (12-78); Albumin 3.5 g/dL (3.4-5.0); Alkaline Phosphatase 78 U/L (45-117); Anion Gap 11 meq/L (5-15); Aspartate Aminotransferase 42 U/L (15-37); Blood Urea Nitrogen 58 mg/dL (7-18); Calcium 10.5 mg/dL (8.5-10.1); Carbon Dioxide 22.2 meq/L (21.0-32.0); Chloride 111 meq/L (98-107); Glomerular Filtration Rate 16 mL/min (>89); Glucose,Random 140 mg/dL (74-106); Magnesium 2.1 mg/dL (1.5-2.5); Phosphorus 3.9 mg/dL (2.5-4.9); Potassium 5.1 meq/L (3.5-5.1); Sodium 144 meq/L (136-145)
[2018-07-12] MEDS: Sod Chloride 0.9% Inj 1,000 ML IV.CONT SCH ×2 (08:17)
[2018-07-12] MEDS: Chlorhexidine Gluconate 2% 1 Pack (2 Cloths) TOPICAL SCH (08:17)
[2018-07-12] MEDS: Famotidine PF Inj 20 MG/2 ML Vial IV.PUSH SCH (08:46)
--- NOTE | 2018-07-12 10:48 | P.PNCC ---
Subjective Subjective Remarks/Hospital Course: 58yM who presented to the ED complaining of chest tightness. He told the ED physician that he takes metoprolol 100 mg BID and was found to be confused, lethargic, with garbled speech. He became bradycardic to the 30s and somnolent. He was given narcan with no improvement in mentation; HR unresponsive to atropine; an attempt at transcutaneous pacing was unsuccessful. After discussion with the poison control center, glucagon was given for possible beta macario overdose with increase in heart rate to 50s. He was started on a dopamine gtt for hypotension and required intubation for airway protection. In the intensive care unit, he required continued BP and HR support with dopamine and epinephrine drips, was given a bolus of intralipid, and had a stat MRI brain performed. SUBJECTIVE: 07/12: Patient required sedation overnight for agitation. MRI brain performed which showed non-specific white matter abnormalities (likely small vessel disease). This morning when I evaluated the patient, he was off pressors and wide awake; he followed commands, tolerated pressure support 8/5, and was successfully extubated to nasal cannula. He says that he remembers coming to the ED because he was having chest pain but does not recall any events following that. He confirms that he is taking metoprolol at home. Objective Vital Signs / I&O: Vital Signs 07/11/18 14:23 07/11/18 14:44 07/11/18 14:46 Temperature 98.0 F Pulse Rate 38 L 40 L 39 L Respiratory Rate 12 14 Blood Pressure 124/74 Pulse Oximetry 97 96 07/11/18 14:49 07/11/18 14:53 07/11/18 15:00 Temperature Pulse Rate 39 L 38 L Respiratory Rate 15 15 16 Blood Pressure 96/55 L 91/60 L Pulse Oximetry 96 98 07/11/18 15:15 07/11/18 15:45 07/11/18 16:05 Temperature Pulse Rate 38 L 38 L Respiratory Rate 16 Blood Pressure 92/63 L 89/56 L 92/57 L Pulse Oximetry 97 94 L 07/11/18 16:26 07/11/18 16:35 07/11/18 16:49 Temperature Pulse Rate 47 L 43 L Respiratory Rate 16 16 Blood Pressure 113/67 107/68 Pulse Oximetry 96 100 93 L 07/11/18 17:11 07/11/18 17:27 07/11/18 18:57 Temperature 94.6 F L Pulse Rate 38 L 43 L Respiratory Rate 16 19 Blood Pressure 81/53 L 98/58 L Pulse Oximetry 92 L 94 L 07/11/18 19:51 07/11/18 20:00 07/11/18 22:00 Temperature 95 F L Pulse Rate 64 67 Respiratory Rate 16 15 Blood Pressure 86/45 L Pulse Oximetry 94 L 96 07/11/18 23:10 07/11/18 23:20 07/11/18 23:30 Temperature 96.6 F L 97.0 F L 97.2 F L Pulse Rate 67 69 73 Respiratory Rate 14 14 16 Blood Pressure 108/52 L 105/56 L 106/57 L Pulse Oximetry 96 96 96 07/11/18 23:40 07/11/18 23:50 07/12/18 00:00 Temperature 97.3 F L 97.5 F L 97.7 F Pulse Rate 74 67 72 Respiratory Rate 17 14 15 Blood Pressure 103/57 L 98/51 L 108/56 L Pulse Oximetry 96 96 96 07/12/18 00:10 07/12/18 00:20 07/12/18 00:21 Temperature 98.1 F 98.2 F Pulse Rate 73 67 Respiratory Rate 14 16 19 Blood Pressure 106/59 L 99/51 L Pulse Oximetry 96 96 96 07/12/18 00:30 07/12/18 00:40 07/12/18 00:50 Temperature 98.4 F 98.6 F 98.8 F Pulse Rate 67 68 69 Respiratory Rate 16 15 15 Blood Pressure 102/59 L 101/59 L 101/55 L Pulse Oximetry 96 96 96 07/12/18 01:00 07/12/18 01:10 07/12/18 01:20 Temperature 99.0 F 99.1 F 99.1 F Pulse Rate 69 70 70 Respiratory Rate 16 16 15 Blood Pressure 104/55 L 106/57 L 105/55 L Pulse Oximetry 97 96 97 07/12/18 01:30 07/12/18 01:40 07/12/18 01:50 Temperature 99.1 F 99.3 F 99.3 F Pulse Rate 71 70 100 H Respiratory Rate 15 16 27 H Blood Pressure 110/56 L 105/57 L 140/69 Pulse Oximetry 97 96 07/12/18 02:00 07/12/18 02:10 07/12/18 02:20 Temperature 99.3 F 99.3 F 99.3 F Pulse Rate 83 76 73 Respiratory Rate 20 19 19 Blood Pressure 107/55 L 99/54 L 103/55 L Pulse Oximetry 85 L 99 07/12/18 02:30 07/12/18 02:40 07/12/18 02:50 Temperature 99.1 F 99.1 F 99.1 F Pulse Rate 74 74 69 Respiratory Rate 18 20 18 Blood Pressure 110/58 L 114/62 112/61 Pulse Oximetry 100 100 100 07/12/18 03:00 07/12/18 03:10 07/12/18 03:20 Temperature 99.0 F 98.8 F 98.8 F Pulse Rate 66 70 62 Respiratory Rate 17 20 17 Blood Pressure 116/62 119/71 104/58 L Pulse Oximetry 100 100 100 07/12/18 03:30 07/12/18 03:40 07/12/18 03:50 Temperature 98.6 F 98.6 F 98.4 F Pulse Rate 60 58 L 58 L Respiratory Rate 17 16 16 Blood Pressure 103/55 L 97/52 L 101/56 L Pulse Oximetry 100 100 100 07/12/18 04:00 07/12/18 04:01 07/12/18 04:10 Temperature 98.2 F 98.2 F Pulse Rate 58 L 57 L Respiratory Rate 17 16 17 Blood Pressure 101/57 L 104/59 L Pulse Oximetry 100 100 100 07/12/18 04:20 07/12/18 04:30 07/12/18 04:40 Temperature 98.1 F 97.9 F 97.9 F Pulse Rate 56 L 58 L 58 L Respiratory Rate 16 17 16 Blood Pressure 107/65 127/71 113/65 Pulse Oximetry 100 100 100 07/12/18 04:50 07/12/18 05:00 07/12/18 05:10 Temperature 97.9 F 97.9 F 97.9 F Pulse Rate 50 L 49 L 50 L Respiratory Rate 16 16 16 Blood Pressure 117/70 106/64 109/69 Pulse Oximetry 100 100 100 07/12/18 05:20 07/12/18 05:30 07/12/18 05:40 Temperature 97.7 F 97.7 F 97.7 F Pulse Rate 52 L 51 L 50 L Respiratory Rate 16 16 16 Blood Pressure 106/69 106/70 102/65 Pulse Oximetry 100 100 100 07/12/18 05:50 07/12/18 06:00 07/12/18 06:01 Temperature 97.5 F L 97.5 F L 97.5 F L Pulse Rate 48 L 59 L 60 Respiratory Rate 16 24 19 Blood Pressure 103/64 142/88 H Pulse Oximetry 100 100 100 07/12/18 06:10 07/12/18 06:20 07/12/18 06:30 Temperature 97.5 F L 97.3 F L 97.3 F L Pulse Rate 50 L 52 L 50 L Respiratory Rate 16 17 17 Blood Pressure 114/63 108/61 105/59 L Pulse Oximetry 100 100 100 07/12/18 06:42 07/12/18 06:51 07/12/18 07:00 Temperature 97.3 F L 97.3 F L 97.3 F L Pulse Rate 61 67 56 L Respiratory Rate 18 19 16 Blood Pressure 121/68 135/80 129/69 Pulse Oximetry 100 99 100 07/12/18 07:10 07/12/18 07:20 07/12/18 07:30 Temperature 97.3 F L 97.3 F L 97.3 F L Pulse Rate 50 L 51 L 51 L Respiratory Rate 16 26 H 21 Blood Pressure 122/73 134/77 125/69 Pulse Oximetry 100 100 100 07/12/18 07:38 07/12/18 07:40 07/12/18 07:50 Temperature 97.3 F L 97.3 F L Pulse Rate 51 L 50 L Respiratory Rate 16 17 19 Blood Pressure 124/73 120/73 Pulse Oximetry 100 100 100 07/12/18 08:00 07/12/18 08:10 07/12/18 08:20 Temperature 97.3 F L 97.3 F L 97.5 F L Pulse Rate 52 L 51 L 52 L Respiratory Rate 21 17 23 Blood Pressure 121/75 130/76 135/76 Pulse Oximetry 100 100 100 07/12/18 08:31 07/12/18 08:40 07/12/18 08:50 Temperature 97.5 F L 97.7 F 97.7 F Pulse Rate 72 56 L 64 Respiratory Rate 32 H 16 18 Blood Pressure 156/79 H 118/73 153/84 H Pulse Oximetry 97 100 100 07/12/18 09:00 07/12/18 09:10 07/12/18 09:25 Temperature 97.7 F 97.7 F 97.9 F Pulse Rate 63 85 72 Respiratory Rate 22 34 H 22 Blood Pressure 134/82 137/89 153/81 H Pulse Oximetry 100 100 100 07/12/18 09:31 07/12/18 09:40 07/12/18 09:50 Temperature 98.1 F 98.2 F Pulse Rate 61 58 L Respiratory Rate 21 26 H Blood Pressure 118/80 121/75 Pulse Oximetry 100 97 98 07/12/18 10:00 Temperature 98.2 F Pulse Rate 59 L Respiratory Rate 27 H Blood Pressure Pulse Oximetry 98 Intake & Output 07/11/18 07/12/18 07/12/18 18:59 06:59 18:59 Intake Total 500 / 500 3637.5 / 3637.5 50 / 50 Output Total 3050 / 3050 Balance 500 / 500 587.5 / 587.5 50 / 50 Weight 83.915 kg 85.5 kg Intake: IV 500 / 500 3577.5 / 3577.5 50 / 50 EPINEPHrine (1:1000) Inj 2 MG 250 / 250 In D5W Inj 248 ML @ 3 MCG/MIN 22.5 mls/hr IV.CONT TITRATE PRN Rx#:[id number] Versed Inj 50 mg In 50 ml @ 2 50 / 50 MG/HR 2 mls/hr IV.CONT TITRATE PRN Rx#:[id number] NS Inj 1,000 ML @ 84 mls/hr IV. 1000 / 1000 CONT [id number] [facility] Rx#:[id number] Calcium Chloride Inj 2 GM In 120 / 120 D5W Inj 100 ML @ 120 mls/hr IV. SIG ONCE ONE Rx#:[id number] NS Inj 500 ML @ Wide Open IV. 500 / 500 SIG BOLUS [facility] Rx#:[id number] Tube Irrigant 60 / 60 Output: Urine Amount (Catheter) 3050 / 3050 Indwelling Urethral Catheter 3050 / 3050 Result Diagrams: 07/12/18 05:10 07/12/18 05:10 Objective Remarks: GEN: Middle-aged male lying in bed, awake and alert, no acute distress HEENT: Pupils 3 mm and reactive bilaterally, NCAT NECK: Trachea midline CARDIO: Regular rate and rhythm, HR in the 50s-60s RESP: Course rhonchi bilaterally, strong cough ABD: Soft, non-distended, non-tender in all quadrants EXT: No lower extremity edema SKIN: Warm and well-perfused NEURO: GCS 15, oriented to person and place but not time, speech clear and fluent, appears mildly confused, moving all extremities PSYCH: Appropriate affect Assessment and Plan - Problem List (1) Encephalopathy acute Code(s): G93.40 - Encephalopathy, unspecified Status: Acute (2) Acute renal failure Code(s): N17.9 - Acute kidney failure, unspecified Status: Acute (3) Hypothermia Code(s): T68.XXXA - Hypothermia, initial encounter Status: Acute (4) Symptomatic bradycardia Code(s): R00.1 - Bradycardia, unspecified Status: Acute (5) Shock Code(s): R57.9 - Shock, unspecified Status: Acute (6) Respiratory failure requiring intubation Code(s): J96.90 - Respiratory failure, unspecified, unspecified whether with hypoxia or hypercapnia Status: Acute (7) Cocaine abuse Code(s): F14.10 - Cocaine abuse, uncomplicated Status: Acute - Assessment and Plan Plan: Assessment: 58yM presenting with chief complaint of chest pain, developed bradycardia and somnolence requiring intubation, found to have acute kidney injury with creatinine of 6, suspected beta macario toxicity. Plan- NEURO: -Encephalopathy almost completely resolved this morning -MRI brain last night was read as white matter abnormality, concerning for small vessel disease vs demyelinating disease vs encephalitis. Patient reports no fever, confusion, or headache prior to coming to the ED and has no signs or symptoms concerning for encephalitis at present. No indication for LP. -Nicotine patch, counseled on smoking cessation CARDIO: -Bradycardia not responsive to atropine or transcutaneous pacing, but responsive to glucagon * Presumed beta macario toxicity- likely due to decreased excretion secondary to renal failure * Received a bolus of intralipid last night and was rapidly weaned off pressors / ionotropes, HR now consistently in mid 50s * Another possibility is BRASH syndrome (bradycardia, renal failure, AV opal blockers, shock, hyperkalemia); his serum potassium is trending up so this is certainly possible, and these cases tend to rapidly improve with catecholamines and supportive care as in this case -2D echo -Trop negative -EP consulted in ED, appreciate recommendations PULM: -Patient tolerated bipap 8/5, able to follow commands and lift head off of pillow, successfully extubated to nasal cannula -Coarse rhonchi noted, patient has a history of smoking; will start scheduled and PRN nebs, chest PT, incentive spirometry, nicotine patch GI: -Speech eval, start diet if he passes F/E/N: -D/C maintenance fluids as we will likely be able to start patient on PO fluids this afternoon -K+ 5.1, see below RENAL: -Acute renal failure: Creatinine 6.0 on arrival, now 3.87 -Produced 1.5 cc/kg/hr of urine overnight -Keep Campbell catheter for today for Is/Os, if he continues to improve we can likely discontinue this tomorrow -K+ 5.1, check repeat labs at 2 PM ID: -Blood cultures negative at 1 day -UA shows trace LE, no nitrites, 9 WBCs; sent for reflex culture -CXR negative for infiltrate -No signs or symptoms concerning for encephalitis TOX: -Urine drug screen positive for cocaine -Salicylate level minimally positive on arrival but trending down -APAP and alcohol negative -BB toxicity as noted above PROPHY: -Pepcid -SCDs, heparin LINES AND TUBES: -Campbell 07/11 -[facility] triple lumen 07/11 (can likely d/c this afternoon) DISPO: Keep in IMC. This patient is critically ill with resolving bradycardia and acute renal failure; he will need close monitoring for today, and if he remains stable, will downgrade tomorrow. Counseling/ Coordination of Care: Total critical care time: 85 minutes. This includes examining the patient, gathering history from someone other than the patient (i.e., chart review), managing the patient's blood pressure and heart rate, titration of ventilator settings and weaning to extubation, ordering and interpreting radiology studies , ordering and interpreting laboratory studies, managing the patient's pain and sedation requirements, re-evaluation at frequent intervals, and documentation. All critical care time is separate and exclusive of procedures, teaching, and patient/ family updates. Code Status: Full
[2018-07-12] MEDS: Famotidine 20 MG Tablet PO SCH (11:31)
[2018-07-12] MEDS: Senna/Docusate Sodium 8.6/50 MG Tablet PO SCH ×2 (11:32→20:33)
[2018-07-12] MEDS: Chlorhexidine 0.12% Oral Kit 15 ML UDC OROPHARYNG SCH (11:47)
[2018-07-12] MEDS: Acetaminophen 325 MG Tablet PO PRN (13:31)
[2018-07-12 15:40] LABS: Calcium 10.1 mg/dL (8.5-10.1); Carbon Dioxide 24.1 meq/L (21.0-32.0)
[2018-07-13] MEDS: Heparin - SQ 10,000 UNITS/ML Vial SQ SCH ×3 (02:49→17:37)
[2018-07-13 04:32] LABS: Baso % (Auto) 0.5 % (0.0-2.0); Eos # (Auto) 0.4 th/mm3 (0.0-0.4); Eos % (Auto) 5.8 % (0.0-4.0); Hematocrit 39.3 % (39.0-51.0); Hemoglobin 13.4 gm/dL (13.0-17.0); Lymph # (Auto) 2.4 th/mm3 (1.0-4.8); Lymph % (Auto) 33.9 % (9.0-44.0); Mean Corpuscular Hemoglobin 33.7 pg (27.0-34.0); Mean Corpuscular Volume 98.9 fL (80.0-100.0); Mean Platelet Volume 9.8 fL (7.0-11.0); Mono # (Auto) 0.7 th/mm3 (0.0-0.9); Mono % (Auto) 9.9 % (0.0-8.0); Neut # (Auto) 3.5 th/mm3 (1.8-7.7); Neut % (Auto) 49.9 % (16.0-70.0); Platelet Count 148 th/mm3 (150-450); Red Blood Count 3.97 mil/mm3 (4.50-5.90); Red Cell Distribution Width 14.2 % (11.6-17.2); White Blood Count 7.1 th/mm3 (4.0-11.0)
[2018-07-13 05:04] LABS: Alanine Aminotransferase 29 U/L (12-78); Albumin 3.4 g/dL (3.4-5.0); Alkaline Phosphatase 78 U/L (45-117); Anion Gap 5 meq/L (5-15); Aspartate Aminotransferase 39 U/L (15-37); Blood Urea Nitrogen 35 mg/dL (7-18); Calcium 10.5 mg/dL (8.5-10.1); Carbon Dioxide 25.4 meq/L (21.0-32.0); Chloride 115 meq/L (98-107); Glomerular Filtration Rate 42 mL/min (>89); Glucose,Random 85 mg/dL (74-106); Magnesium 1.8 mg/dL (1.5-2.5); Potassium 4.5 meq/L (3.5-5.1); Sodium 145 meq/L (136-145)
--- NOTE | 2018-07-13 05:46 | P.PNCA ---
Subjective Interval history: No acute events. Bradycardia improved. Physical Exam Vital signs: Vital Signs 07/12/18 05:30 07/12/18 05:40 07/12/18 05:50 Temperature 97.7 F 97.7 F 97.5 F L Pulse Rate 51 L 50 L 48 L Respiratory Rate 16 16 16 Blood Pressure 106/70 102/65 103/64 Pulse Oximetry 100 100 100 07/12/18 06:00 07/12/18 06:01 07/12/18 06:10 Temperature 97.5 F L 97.5 F L 97.5 F L Pulse Rate 59 L 60 50 L Respiratory Rate 24 19 16 Blood Pressure 142/88 H 114/63 Pulse Oximetry 100 100 100 07/12/18 06:20 07/12/18 06:30 07/12/18 06:42 Temperature 97.3 F L 97.3 F L 97.3 F L Pulse Rate 52 L 50 L 61 Respiratory Rate 17 17 18 Blood Pressure 108/61 105/59 L 121/68 Pulse Oximetry 100 100 100 07/12/18 06:51 07/12/18 07:00 07/12/18 07:10 Temperature 97.3 F L 97.3 F L 97.3 F L Pulse Rate 67 56 L 50 L Respiratory Rate 19 16 16 Blood Pressure 135/80 129/69 122/73 Pulse Oximetry 99 100 100 07/12/18 07:20 07/12/18 07:30 07/12/18 07:38 Temperature 97.3 F L 97.3 F L Pulse Rate 51 L 51 L Respiratory Rate 26 H 21 16 Blood Pressure 134/77 125/69 Pulse Oximetry 100 100 100 07/12/18 07:40 07/12/18 07:50 07/12/18 08:00 Temperature 97.3 F L 97.3 F L 97.3 F L Pulse Rate 51 L 50 L 52 L Respiratory Rate 17 19 21 Blood Pressure 124/73 120/73 121/75 Pulse Oximetry 100 100 100 07/12/18 08:10 07/12/18 08:20 07/12/18 08:31 Temperature 97.3 F L 97.5 F L 97.5 F L Pulse Rate 51 L 52 L 72 Respiratory Rate 17 23 32 H Blood Pressure 130/76 135/76 156/79 H Pulse Oximetry 100 100 97 07/12/18 08:40 07/12/18 08:50 07/12/18 09:00 Temperature 97.7 F 97.7 F 97.7 F Pulse Rate 56 L 64 63 Respiratory Rate 16 18 22 Blood Pressure 118/73 153/84 H 134/82 Pulse Oximetry 100 100 100 07/12/18 09:10 07/12/18 09:25 07/12/18 09:31 Temperature 97.7 F 97.9 F Pulse Rate 85 72 Respiratory Rate 34 H 22 Blood Pressure 137/89 153/81 H Pulse Oximetry 100 100 100 07/12/18 09:40 07/12/18 09:50 07/12/18 10:00 Temperature 98.1 F 98.2 F 98.2 F Pulse Rate 61 58 L 59 L Respiratory Rate 21 26 H 27 H Blood Pressure 118/80 121/75 Pulse Oximetry 97 98 98 07/12/18 10:10 07/12/18 10:20 07/12/18 10:31 Temperature 98.2 F 98.2 F 98.2 F Pulse Rate 55 L 53 L 54 L Respiratory Rate 22 19 32 H Blood Pressure 120/73 115/75 138/84 Pulse Oximetry 99 99 100 07/12/18 10:40 07/12/18 10:50 07/12/18 11:00 Temperature 98.2 F 98.1 F 98.1 F Pulse Rate 60 60 62 Respiratory Rate 30 H 35 H 36 H Blood Pressure 145/85 H 134/79 137/85 Pulse Oximetry 100 100 100 07/12/18 11:10 07/12/18 11:20 07/12/18 11:21 Temperature 98.1 F 98.1 F Pulse Rate 62 62 58 L Respiratory Rate 37 H 23 16 Blood Pressure 143/87 H 144/89 H Pulse Oximetry 100 99 07/12/18 11:31 07/12/18 11:41 07/12/18 11:50 Temperature 98.1 F 98.2 F 98.2 F Pulse Rate 61 62 61 Respiratory Rate 27 H 26 H 25 H Blood Pressure 141/80 H 128/79 134/84 Pulse Oximetry 98 98 98 07/12/18 12:00 07/12/18 12:10 07/12/18 12:15 Temperature 98.2 F 98.2 F Pulse Rate 65 61 Respiratory Rate 19 20 14 Blood Pressure 129/78 132/84 Pulse Oximetry 95 97 07/12/18 12:20 09/08/18 12:30 07/12/18 12:40 Temperature 98.2 F 98.2 F 98.2 F Pulse Rate 60 60 66 Respiratory Rate 19 20 16 Blood Pressure 135/82 129/78 135/80 Pulse Oximetry 97 97 98 07/12/18 12:51 07/12/18 13:00 07/12/18 13:21 Temperature 98.2 F 98.2 F 98.2 F Pulse Rate 60 54 L 60 Respiratory Rate 14 16 31 H Blood Pressure 131/84 130/79 123/92 H Pulse Oximetry 98 98 98 07/12/18 13:30 07/12/18 13:40 07/12/18 13:50 Temperature 98.2 F 98.2 F 98.2 F Pulse Rate 59 L 57 L 58 L Respiratory Rate 22 18 16 Blood Pressure 130/88 124/86 128/83 Pulse Oximetry 97 97 92 L 07/12/18 14:00 07/12/18 14:01 07/12/18 14:10 Temperature 98.2 F 98.2 F 98.2 F Pulse Rate 56 L 61 55 L Respiratory Rate 16 18 21 Blood Pressure 121/91 H 130/76 Pulse Oximetry 95 88 L 99 07/12/18 14:20 07/12/18 14:30 07/12/18 14:41 Temperature 98.2 F 98.2 F 98.2 F Pulse Rate 54 L 51 L 51 L Respiratory Rate 22 20 24 Blood Pressure 133/82 133/83 132/86 Pulse Oximetry 99 98 97 07/12/18 14:50 07/12/18 15:00 07/12/18 15:07 Temperature 98.2 F 98.4 F Pulse Rate 57 L 49 L 50 L Respiratory Rate 20 20 16 Blood Pressure 127/87 134/81 Pulse Oximetry 99 98 07/12/18 15:10 07/12/18 15:20 07/12/18 15:30 Temperature 98.4 F 98.4 F 98.6 F Pulse Rate 49 L 52 L 53 L Respiratory Rate 21 19 20 Blood Pressure 147/89 H 136/83 131/77 Pulse Oximetry 100 100 99 07/12/18 15:40 07/12/18 15:50 07/12/18 16:00 Temperature 98.4 F 98.4 F 98.4 F Pulse Rate 54 L 54 L 54 L Respiratory Rate 20 22 21 Blood Pressure 136/83 121/83 110/78 Pulse Oximetry 98 98 97 07/12/18 16:10 07/12/18 16:20 07/12/18 16:30 Temperature 98.4 F 98.4 F 98.2 F Pulse Rate 53 L 53 L 53 L Respiratory Rate 20 20 20 Blood Pressure 110/67 113/73 105/67 Pulse Oximetry 96 96 96 07/12/18 16:40 07/12/18 16:50 07/12/18 16:59 Temperature 98.2 F 98.1 F 98.1 F Pulse Rate 52 L 51 L 54 L Respiratory Rate 20 19 22 Blood Pressure 108/69 111/71 Pulse Oximetry 96 97 97 07/12/18 17:00 07/12/18 17:10 07/12/18 17:20 Temperature 98.1 F 98.1 F 97.9 F Pulse Rate 52 L 57 L 58 L Respiratory Rate 19 21 20 Blood Pressure 114/77 127/75 125/79 Pulse Oximetry 98 96 95 07/12/18 17:30 07/12/18 17:50 07/12/18 18:00 Temperature 97.7 F 97.7 F 97.7 F Pulse Rate 56 L 57 L 57 L Respiratory Rate 20 22 25 H Blood Pressure 124/81 116/82 129/85 Pulse Oximetry 98 95 97 07/12/18 18:10 07/12/18 18:20 07/12/18 18:31 Temperature 97.7 F 97.7 F 97.7 F Pulse Rate 56 L 59 L 57 L Respiratory Rate 23 20 18 Blood Pressure 123/81 134/85 145/76 H Pulse Oximetry 98 96 97 07/12/18 18:40 07/12/18 18:50 07/12/18 19:00 Temperature 97.7 F 97.7 F 97.7 F Pulse Rate 55 L 53 L 53 L Respiratory Rate 19 27 H 21 Blood Pressure 115/78 123/82 124/77 Pulse Oximetry 97 96 98 07/12/18 19:10 07/12/18 19:20 07/12/18 19:30 Temperature 97.7 F 97.7 F 97.7 F Pulse Rate 57 L 55 L 54 L Respiratory Rate 18 23 38 H Blood Pressure 129/84 127/84 126/85 Pulse Oximetry 99 100 98 09/08/18 19:40 07/12/18 19:50 07/12/18 20:00 Temperature 97.7 F 97.7 F 97.9 F Pulse Rate 52 L 62 54 L Respiratory Rate 34 H 37 H 25 H Blood Pressure 125/82 162/87 H 136/71 Pulse Oximetry 97 97 97 07/12/18 20:11 07/12/18 20:17 07/12/18 20:19 Temperature 97.9 F Pulse Rate 62 71 Respiratory Rate 30 H 18 Blood Pressure 138/83 Pulse Oximetry 99 98 07/12/18 20:20 07/12/18 20:30 07/12/18 20:40 Temperature 97.9 F 97.9 F 97.7 F Pulse Rate 55 L 57 L 63 Respiratory Rate 18 19 28 H Blood Pressure 130/77 122/75 132/72 Pulse Oximetry 98 97 93 L 07/12/18 20:50 07/12/18 21:00 07/12/18 21:10 Temperature 97.7 F 97.5 F L 97.5 F L Pulse Rate 60 59 L 58 L Respiratory Rate 20 20 20 Blood Pressure 132/85 134/84 129/82 Pulse Oximetry 99 97 97 07/12/18 21:20 07/12/18 21:31 07/12/18 21:40 Temperature 97.5 F L 97.7 F 97.5 F L Pulse Rate 64 63 58 L Respiratory Rate 28 H 27 H 28 H Blood Pressure 136/79 135/90 130/84 Pulse Oximetry 98 96 97 07/12/18 21:50 07/12/18 22:00 07/12/18 22:09 Temperature 97.7 F 97.7 F 97.7 F Pulse Rate 62 58 L 59 L Respiratory Rate 33 H 20 18 Blood Pressure 132/88 115/72 Pulse Oximetry 98 96 95 07/12/18 22:10 07/12/18 22:20 07/12/18 22:30 Temperature 97.7 F 97.7 F 97.7 F Pulse Rate 59 L 60 57 L Respiratory Rate 19 18 20 Blood Pressure 117/74 127/77 124/76 Pulse Oximetry 95 96 97 07/12/18 22:41 07/12/18 22:50 07/12/18 23:00 Temperature 97.7 F 97.5 F L 97.5 F L Pulse Rate 56 L 56 L 56 L Respiratory Rate 19 21 20 Blood Pressure 112/75 119/77 114/75 Pulse Oximetry 96 96 97 07/12/18 23:10 07/12/18 23:20 07/12/18 23:30 Temperature 97.5 F L 97.3 F L 97.3 F L Pulse Rate 56 L 55 L 54 L Respiratory Rate 20 21 19 Blood Pressure 122/82 122/76 116/75 Pulse Oximetry 96 97 97 07/12/18 23:35 07/12/18 23:40 07/12/18 23:50 Temperature 97.3 F L 97.3 F L Pulse Rate 53 L 53 L 53 L Respiratory Rate 16 17 24 Blood Pressure 130/81 137/85 Pulse Oximetry 100 100 07/13/18 00:00 07/13/18 00:10 07/13/18 00:21 Temperature 97.3 F L 97.2 F L 97.0 F L Pulse Rate 59 L 58 L 60 Respiratory Rate 21 16 26 H Blood Pressure 138/85 149/88 H 154/97 H Pulse Oximetry 98 98 95 07/13/18 00:31 07/13/18 01:00 07/13/18 01:12 Temperature 97.2 F L 97.0 F L 97.0 F L Pulse Rate 78 59 L 54 L Respiratory Rate 40 H 32 H 20 Blood Pressure 136/84 141/84 H Pulse Oximetry 100 99 100 07/13/18 01:30 07/13/18 02:00 07/13/18 02:31 Temperature 96.8 F L 97.7 F 97.7 F Pulse Rate 53 L 52 L 51 L Respiratory Rate 24 21 21 Blood Pressure 144/85 H 125/79 136/65 Pulse Oximetry 99 97 98 07/13/18 03:00 Temperature 97.7 F Pulse Rate 50 L Respiratory Rate 22 Blood Pressure 132/78 Pulse Oximetry 98 Intake & Output 07/12/18 07/12/18 07/13/18 06:59 18:59 06:59 Intake Total 3637.5 / 3637.5 1752.5 / 1752.5 Output Total 3050 / 3050 2099 / 2100 Balance 587.5 / 587.5 -347.5 / -347.5 Weight 85.5 kg Intake: IV 3577.5 / 3577.5 902.5 / 902.5 EPINEPHrine (1:1000) Inj 2 MG 250 / 250 75 / 75 In D5W Inj 248 ML @ 3 MCG/MIN 22.5 mls/hr IV.CONT TITRATE PRN Rx#:[id number] Versed Inj 50 mg In 50 ml @ 2 60 / 60 MG/HR 2 mls/hr IV.CONT TITRATE PRN Rx#:[id number] NS Inj 1,000 ML @ 84 mls/hr IV. 1000 / 1000 700 / 700 CONT .[id number] [facility] Rx#:[id number] Calcium Chloride Inj 2 GM In 120 / 120 D5W Inj 100 ML @ 120 mls/hr IV. SIG ONCE ONE Rx#:[id number] NS Inj 500 ML @ Wide Open IV. 0 / 0 SIG BOLUS [facility] Rx#:[id number] Oral 850 / 850 Tube Irrigant 60 / 60 Output: Urine Amount (Catheter) 3050 / 3050 2099 / 2099 Indwelling Urethral Catheter 3050 / 3050 2099 / 2099 - Constitutional no acute distress - Routine HEENT Exam Eye: Present: EOMI, PERRL - Routine Respiratory Exam Present: CTA bilaterally - Routine Cardiovascular Exam Present: S1, S2, bradycardia - Routine Abdominal Exam Present: soft, normoactive bowel sounds. Absent: tenderness - Routine Neurological Exam Present: alert, oriented X3 - Urinary Catheter Management Indwelling Urethral Catheter Cath placed during this visit: yes Reason for continuing: Hourly intake/output Insertion date: 07/11/18 Insertion time: 16:45 Straight Cath placed during this visit: yes, but has since been removed by the nurse Reason for continuing: Not indwelling catheter Insertion date: 07/13/18 Insertion time: 00:25 Removal date: 07/13/18 Removal time: 00:30 Assessment and Plan - Plan Symptomatic Bradycardia -Likely BB toxicity, it has improved with glucagon. In review of old records he is suppose to be on Metoprolol 25 mg BID. He had a stress test that was negative. he has a history of normal EF. I would emphasize that he stop Metoprolol for now and be re-evaluated as an outpatient. Awaiting TTE
--- NOTE | 2018-07-13 05:50 | P.CONCA ---
History of Present Illness Primary Care Provider: UNKNOWN Chief Complaint: Chest pain History of Present Illness: 58 year old gentleman followed by Brittaney who has a history of HTN. Hep C, Bipolar disorder. He presented to the ER lethargic with altered mental status.His EKG showed sinus bradycardia with HRs in the 30s. Atropine and dopamine were attempted in the ER without real success. He finally received glucagon and his HR started to improve. Unable to obtain a reliable history as the patient has altered mental status. Review of Systems unobtainable due to mental status PMFSH - History History Provided By: Patient - Medical / Surgical Hx Neg / Unobtainable Medical Problems Denied: Unable to Obtain - Medical History Medical History: Medical History (Last Reviewed 07/12/18 @ 11:37 by Lisa Jaramillo) HTN (hypertension) - Surgical History Surgical History: Surgical History (Last Reviewed 07/12/18 @ 11:37 by Lisa Jaramillo) History of back surgery - Tobacco History Tobacco Use In Past 30 Days: No Smoking Status: Current every day smoker Tobacco Type: Cigarettes - Alcohol History How Often Do You Have a Drink Containing Alcohol: Never - Immunization History Tetanus Immunization: Unsure Hx Influenza Vaccine This Season: No Medications and Allergies Active Medications: Active Medications Acetaminophen (Tylenol) 650 mg PO Q6H PRN PRN Reason: PAIN 1-10 AND/OR FEVER >101F Last Admin: 07/12/18 13:31 Dose: 650 mg Al Hydroxide/Mg Hydroxide (Milk Of [place] Gomes) 30 ml PO Q12H PRN PRN Reason: Mild Constipation Albuterol (Albuterol Neb (Prn)) 2.5 mg NEB Q2HR NEB PRN PRN Reason: SHORTNESS OF BREATH/WHEEZING Albuterol (Duoneb Neb (Hanna)) 1 ampul NEB Q4HR NEB HANNA Last Admin: 07/13/18 04:13 Dose: Not Given Bisacodyl (Dulcolax Supp) 10 mg RECTAL DAILY PRN PRN Reason: SEVERE CONSITIPATION Chlorhexidine Gluconate (Chlorhexidine 2% Cloth) 3 pack TOPICAL DAILY@0400 PRN PRN Reason: Extra cloth needed Stop: 07/17/18 03:59 Chlorhexidine Gluconate (Chlorhexidine 2% Cloth) 3 pack TOPICAL DAILY@0400 HANNA Stop: 07/17/18 03:59 Last Admin: 07/12/18 08:17 Dose: 3 pack Dextrose (D50w Vial) 50 ml IV.PUSH UNSCH PRN PRN Reason: PER HYPOGLYCEMIA PROTOCOL Famotidine (Pepcid Pf Inj) 10 mg IV.PUSH Q12HR HANNA Famotidine (Pepcid) 10 mg PO BID [facility] Heparin Sodium (Porcine) (Heparin Inj) 5,000 units SQ Q8H [facility] Last Admin: 07/13/18 02:49 Dose: 5,000 units Sodium Chloride (Ns Inj) 500 mls @ 0 mls/hr IV.SIG BOLUS [facility] Last Infusion: 07/12/18 09:00 Dose: Infused Lactulose (Lactulose Liq) 30 ml PO DAILY PRN PRN Reason: SEVERE CONSITIPATION Miscellaneous (Pill Splitter) 1 each OTHER UNSCH PRN PRN Reason: SEE LABEL COMMENTS Nicotine (Habitrol 21 Mg Patch.24 Hr) 1 patch T-DERMAL DAILY [facility] Last Admin: 07/12/18 11:44 Dose: 1 patch Ondansetron HCl (Zofran Inj) 4 mg IV.PUSH Q6H PRN PRN Reason: NAUSEA OR VOMITING Patch Removal (Remove Old Patch) 1 each T-DERMAL DAILY [facility] Senna/Docusate Sodium (Cinthia-Colace) 1 tab PO BID [facility] Last Admin: 07/12/18 20:33 Dose: 1 tab Sennosides (Senokot) 17.2 mg PO Q12H PRN PRN Reason: Moderate Constipation Sodium Chloride (Ns Flush) 2 ml IV.FLUSH BID [facility] Last Admin: 07/12/18 20:33 Dose: 2 ml Sodium Chloride (Ns Flush) 2 ml IV.FLUSH PRN PRN PRN Reason: FLUSH AFTER USING IV ACCESS Allergies Allergy/AdvReac Type Severity Reaction Status Date / Time No Known Allergies Allergy Unverified 07/11/18 18:13 Home Medications Medication Instructions Recorded Confirmed Type aminophylline 07/01/18 History hydroxyzine HCl 50 mg PO TID PRN 07/01/18 07/01/18 History lisinopril 20 mg PO BID 07/01/18 07/01/18 History Exam Vital signs: Vital Signs 07/12/18 05:50 07/12/18 06:00 07/12/18 06:01 Temperature 97.5 F L 97.5 F L 97.5 F L Pulse Rate 48 L 59 L 60 Respiratory Rate 16 24 19 Blood Pressure 103/64 142/88 H Pulse Oximetry 100 100 100 07/12/18 06:10 07/12/18 06:20 07/12/18 06:30 Temperature 97.5 F L 97.3 F L 97.3 F L Pulse Rate 50 L 52 L 50 L Respiratory Rate 16 17 17 Blood Pressure 114/63 108/61 105/59 L Pulse Oximetry 100 100 100 07/12/18 06:42 07/12/18 06:51 07/12/18 07:00 Temperature 97.3 F L 97.3 F L 97.3 F L Pulse Rate 61 67 56 L Respiratory Rate 18 19 16 Blood Pressure 121/68 135/80 129/69 Pulse Oximetry 100 99 100 07/12/18 07:10 07/12/18 07:20 07/12/18 07:30 Temperature 97.3 F L 97.3 F L 97.3 F L Pulse Rate 50 L 51 L 51 L Respiratory Rate 16 26 H 21 Blood Pressure 122/73 134/77 125/69 Pulse Oximetry 100 100 100 07/12/18 07:38 07/12/18 07:40 07/12/18 07:50 Temperature 97.3 F L 97.3 F L Pulse Rate 51 L 50 L Respiratory Rate 16 17 19 Blood Pressure 124/73 120/73 Pulse Oximetry 100 100 100 07/12/18 08:00 07/12/18 08:10 07/12/18 08:20 Temperature 97.3 F L 97.3 F L 97.5 F L Pulse Rate 52 L 51 L 52 L Respiratory Rate 21 17 23 Blood Pressure 121/75 130/76 135/76 Pulse Oximetry 100 100 100 07/12/18 08:31 07/12/18 08:40 07/12/18 08:50 Temperature 97.5 F L 97.7 F 97.7 F Pulse Rate 72 56 L 64 Respiratory Rate 32 H 16 18 Blood Pressure 156/79 H 118/73 153/84 H Pulse Oximetry 97 100 100 07/12/18 09:00 07/12/18 09:10 07/12/18 09:25 Temperature 97.7 F 97.7 F 97.9 F Pulse Rate 63 85 72 Respiratory Rate 22 34 H 22 Blood Pressure 134/82 137/89 153/81 H Pulse Oximetry 100 100 100 07/12/18 09:31 07/12/18 09:40 07/12/18 09:50 Temperature 98.1 F 98.2 F Pulse Rate 61 58 L Respiratory Rate 21 26 H Blood Pressure 118/80 121/75 Pulse Oximetry 100 97 98 07/12/18 10:00 07/12/18 10:10 07/12/18 10:20 Temperature 98.2 F 98.2 F 98.2 F Pulse Rate 59 L 55 L 53 L Respiratory Rate 27 H 22 19 Blood Pressure 120/73 115/75 Pulse Oximetry 98 99 99 07/12/18 10:31 07/12/18 10:40 07/12/18 10:50 Temperature 98.2 F 98.2 F 98.1 F Pulse Rate 54 L 60 60 Respiratory Rate 32 H 30 H 35 H Blood Pressure 138/84 145/85 H 134/79 Pulse Oximetry 100 100 100 07/12/18 11:00 07/12/18 11:10 07/12/18 11:20 Temperature 98.1 F 98.1 F 98.1 F Pulse Rate 62 62 62 Respiratory Rate 36 H 37 H 23 Blood Pressure 137/85 143/87 H 144/89 H Pulse Oximetry 100 100 99 07/12/18 11:21 07/12/18 11:31 07/12/18 11:41 Temperature 98.1 F 98.2 F Pulse Rate 58 L 61 62 Respiratory Rate 16 27 H 26 H Blood Pressure 141/80 H 128/79 Pulse Oximetry 98 98 07/12/18 11:50 07/12/18 12:00 07/12/18 12:10 Temperature 98.2 F 98.2 F 98.2 F Pulse Rate 61 65 61 Respiratory Rate 25 H 19 20 Blood Pressure 134/84 129/78 132/84 Pulse Oximetry 98 95 97 07/12/18 12:15 07/12/18 12:20 07/12/18 12:30 Temperature 98.2 F 98.2 F Pulse Rate 60 60 Respiratory Rate 14 19 20 Blood Pressure 135/82 129/78 Pulse Oximetry 97 97 07/12/18 12:40 07/12/18 12:51 07/12/18 13:00 Temperature 98.2 F 98.2 F 98.2 F Pulse Rate 66 60 54 L Respiratory Rate 16 14 16 Blood Pressure 135/80 131/84 130/79 Pulse Oximetry 98 98 98 07/12/18 13:21 07/12/18 13:30 07/12/18 13:40 Temperature 98.2 F 98.2 F 98.2 F Pulse Rate 60 59 L 57 L Respiratory Rate 31 H 22 18 Blood Pressure 123/92 H 130/88 124/86 Pulse Oximetry 98 97 97 07/12/18 13:50 07/12/18 14:00 07/12/18 14:01 Temperature 98.2 F 98.2 F 98.2 F Pulse Rate 58 L 56 L 61 Respiratory Rate 16 16 18 Blood Pressure 128/83 121/91 H Pulse Oximetry 92 L 95 88 L 07/12/18 14:10 07/12/18 14:20 07/12/18 14:30 Temperature 98.2 F 98.2 F 98.2 F Pulse Rate 55 L 54 L 51 L Respiratory Rate 21 22 20 Blood Pressure 130/76 133/82 133/83 Pulse Oximetry 99 99 98 07/12/18 14:41 07/12/18 14:50 07/12/18 15:00 Temperature 98.2 F 98.2 F 98.4 F Pulse Rate 51 L 57 L 49 L Respiratory Rate 24 20 20 Blood Pressure 132/86 127/87 134/81 Pulse Oximetry 97 99 98 07/12/18 15:07 07/12/18 15:10 07/12/18 15:20 Temperature 98.4 F 98.4 F Pulse Rate 50 L 49 L 52 L Respiratory Rate 16 21 19 Blood Pressure 147/89 H 136/83 Pulse Oximetry 100 100 07/12/18 15:30 07/12/18 15:40 07/12/18 15:50 Temperature 98.6 F 98.4 F 98.4 F Pulse Rate 53 L 54 L 54 L Respiratory Rate 20 20 22 Blood Pressure 131/77 136/83 121/83 Pulse Oximetry 99 98 98 07/12/18 16:00 07/12/18 16:10 07/12/18 16:20 Temperature 98.4 F 98.4 F 98.4 F Pulse Rate 54 L 53 L 53 L Respiratory Rate 21 20 20 Blood Pressure 110/78 110/67 113/73 Pulse Oximetry 97 96 96 07/12/18 16:30 07/12/18 16:40 07/12/18 16:50 Temperature 98.2 F 98.2 F 98.1 F Pulse Rate 53 L 52 L 51 L Respiratory Rate 20 20 19 Blood Pressure 105/67 108/69 111/71 Pulse Oximetry 96 96 97 07/12/18 16:59 07/12/18 17:00 07/12/18 17:10 Temperature 98.1 F 98.1 F 98.1 F Pulse Rate 54 L 52 L 57 L Respiratory Rate 22 19 21 Blood Pressure 114/77 127/75 Pulse Oximetry 97 98 96 07/12/18 17:20 07/12/18 17:30 07/12/18 17:50 Temperature 97.9 F 97.7 F 97.7 F Pulse Rate 58 L 56 L 57 L Respiratory Rate 20 20 22 Blood Pressure 125/79 124/81 116/82 Pulse Oximetry 95 98 95 07/12/18 18:00 07/12/18 18:10 07/12/18 18:20 Temperature 97.7 F 97.7 F 97.7 F Pulse Rate 57 L 56 L 59 L Respiratory Rate 25 H 23 20 Blood Pressure 129/85 123/81 134/85 Pulse Oximetry 97 98 96 07/12/18 18:31 07/12/18 18:40 07/12/18 18:50 Temperature 97.7 F 97.7 F 97.7 F Pulse Rate 57 L 55 L 53 L Respiratory Rate 18 19 27 H Blood Pressure 145/76 H 115/78 123/82 Pulse Oximetry 97 97 96 07/12/18 19:00 07/12/18 19:10 07/12/18 19:20 Temperature 97.7 F 97.7 F 97.7 F Pulse Rate 53 L 57 L 55 L Respiratory Rate 21 18 23 Blood Pressure 124/77 129/84 127/84 Pulse Oximetry 98 99 100 07/12/18 19:30 07/12/18 19:40 07/12/18 19:50 Temperature 97.7 F 97.7 F 97.7 F Pulse Rate 54 L 52 L 62 Respiratory Rate 38 H 34 H 37 H Blood Pressure 126/85 125/82 162/87 H Pulse Oximetry 98 97 97 07/12/18 20:00 07/12/18 20:11 07/12/18 20:17 Temperature 97.9 F 97.9 F Pulse Rate 54 L 62 71 Respiratory Rate 25 H 30 H 18 Blood Pressure 136/71 138/83 Pulse Oximetry 97 99 07/12/18 20:19 07/12/18 20:20 07/12/18 20:30 Temperature 97.9 F 97.9 F Pulse Rate 55 L 57 L Respiratory Rate 18 19 Blood Pressure 130/77 122/75 Pulse Oximetry 98 98 97 07/12/18 20:40 07/12/18 20:50 07/12/18 21:00 Temperature 97.7 F 97.7 F 97.5 F L Pulse Rate 63 60 59 L Respiratory Rate 28 H 20 20 Blood Pressure 132/72 132/85 134/84 Pulse Oximetry 93 L 99 97 07/12/18 21:10 07/12/18 21:20 07/12/18 21:31 Temperature 97.5 F L 97.5 F L 97.7 F Pulse Rate 58 L 64 63 Respiratory Rate 20 28 H 27 H Blood Pressure 129/82 136/79 135/90 Pulse Oximetry 97 98 96 07/12/18 21:40 07/12/18 21:50 07/12/18 22:00 Temperature 97.5 F L 97.7 F 97.7 F Pulse Rate 58 L 62 58 L Respiratory Rate 28 H 33 H 20 Blood Pressure 130/84 132/88 115/72 Pulse Oximetry 97 98 96 07/12/18 22:09 07/12/18 22:10 07/12/18 22:20 Temperature 97.7 F 97.7 F 97.7 F Pulse Rate 59 L 59 L 60 Respiratory Rate 18 19 18 Blood Pressure 117/74 127/77 Pulse Oximetry 95 95 96 07/12/18 22:30 07/12/18 22:41 07/12/18 22:50 Temperature 97.7 F 97.7 F 97.5 F L Pulse Rate 57 L 56 L 56 L Respiratory Rate 20 19 21 Blood Pressure 124/76 112/75 119/77 Pulse Oximetry 97 96 96 07/12/18 23:00 07/12/18 23:10 07/12/18 23:20 Temperature 97.5 F L 97.5 F L 97.3 F L Pulse Rate 56 L 56 L 55 L Respiratory Rate 20 20 21 Blood Pressure 114/75 122/82 122/76 Pulse Oximetry 97 96 97 07/12/18 23:30 07/12/18 23:35 07/12/18 23:40 Temperature 97.3 F L 97.3 F L Pulse Rate 54 L 53 L 53 L Respiratory Rate 19 16 17 Blood Pressure 116/75 130/81 Pulse Oximetry 97 100 07/12/18 23:50 07/13/18 00:00 07/13/18 00:10 Temperature 97.3 F L 97.3 F L 97.2 F L Pulse Rate 53 L 59 L 58 L Respiratory Rate 24 21 16 Blood Pressure 137/85 138/85 149/88 H Pulse Oximetry 100 98 98 07/13/18 00:21 07/13/18 00:31 07/13/18 01:00 Temperature 97.0 F L 97.2 F L 97.0 F L Pulse Rate 60 78 59 L Respiratory Rate 26 H 40 H 32 H Blood Pressure 154/97 H 136/84 Pulse Oximetry 95 100 99 07/13/18 01:12 07/13/18 01:30 07/13/18 02:00 Temperature 97.0 F L 96.8 F L 97.7 F Pulse Rate 54 L 53 L 52 L Respiratory Rate 20 24 21 Blood Pressure 141/84 H 144/85 H 125/79 Pulse Oximetry 100 99 97 07/13/18 02:31 07/13/18 03:00 Temperature 97.7 F 97.7 F Pulse Rate 51 L 50 L Respiratory Rate 21 22 Blood Pressure 136/65 132/78 Pulse Oximetry 98 98 Intake & Output 07/12/18 07/12/18 07/13/18 06:59 18:59 06:59 Intake Total 3637.5 / 3637.5 1752.5 / 1752.5 Output Total 3050 / 3050 2100 / 2100 Balance 587.5 / 587.5 -347.5 / -347.5 Weight 85.5 kg Intake: IV 3577.5 / 3577.5 902.5 / 902.5 EPINEPHrine (1:1000) Inj 2 MG 250 / 250 75 / 75 In D5W Inj 248 ML @ 3 MCG/MIN 22.5 mls/hr IV.CONT TITRATE PRN Rx#:[id number] Versed Inj 50 mg In 50 ml @ 2 60 / 60 MG/HR 2 mls/hr IV.CONT TITRATE PRN Rx#:[id number] NS Inj 1,000 ML @ 84 mls/hr IV. 1000 / 1000 700 / 700 CONT .[id number] [facility] Rx#:[id number] Calcium Chloride Inj 2 GM In 120 / 120 D5W Inj 100 ML @ 120 mls/hr IV. SIG ONCE ONE Rx#:[id number] NS Inj 500 ML @ Wide Open IV. 0 / 0 SIG BOLUS HANNA Rx#:[id number] Oral 850 / 850 Tube Irrigant 60 / 60 Output: Urine Amount (Catheter) 305 / 3049 Indwelling Urethral Catheter 3049 - Constitutional somnolent - Routine HEENT Exam Eye: Present: EOMI - Routine Neck Exam Absent: JVD - Routine Chest/Breast/Axilla Exam Chest wall: Absent: tenderness - Routine Respiratory Exam Present: CTA bilaterally - Routine Cardiovascular Exam Present: RRR, S1, S2, bradycardia - Routine Abdominal Exam Present: soft, normoactive bowel sounds - Routine Extremities Exam Absent: edema - Routine Neurological Exam Present: altered mental status (Patient is barely arousable). Absent: alert, oriented X3 Results 07/13/18 03:20 07/13/18 03:20 Cardiac Enzymes 07/12/18 07/13/18 Range/Units 05:10 03:20 AST 42 H 39 H (15-37) U/L Coagulation 07/12/18 Range/Units 05:10 PT 10.8 (9.8-11.6) sec CBC 07/12/18 07/13/18 Range/Units 05:10 03:20 WBC 9.6 7.1 (4.0-11.0) th/mm3 RBC 3.98 L 3.97 L (4.50-5.90) mil/mm3 Hgb 13.3 D 13.4 (13.0-17.0) gm/dL Hct 39.7 39.3 (39.0-51.0) % Plt Count 154 148 L (150-450) th/mm3 Neut # (Auto) 7.8 H 3.5 (1.8-7.7) th/mm3 Lymph # (Auto) 1.0 2.4 (1.0-4.8) th/mm3 Johnson # (Auto) 0.8 0.7 (0.0-0.9) th/mm3 Eos # (Auto) 0.0 0.4 (0.0-0.4) th/mm3 Baso # (Auto) 0.0 0.0 (0.0-0.2) th/mm3 Comprehensive Metabolic Panel 07/12/18 07/12/18 07/13/18 Range/Units 05:10 14:30 03:20 Sodium 144 145 145 (136-145) meq/L Potassium 5.1 D 5.0 4.5 (3.5-5.1) meq/L Chloride 111 H 114 H 115 H (98-107) meq/L Carbon Dioxide 22.2 24.1 25.4 (21.0-32.0) meq/L BUN 58 H 46 H 35 H (7-18) mg/dL Creatinine 3.87 H 2.57 H 1.71 H (0.60-1.30) mg/dL Calcium 10.5 H D 10.1 10.5 H (8.5-10.1) mg/dL AST 42 H 39 H (15-37) U/L ALT 30 29 (12-78) U/L Alkaline Phosphatase 78 78 (45-117) U/L Total Protein 6.0 L D 6.0 L (6.4-8.2) g/dL Albumin 3.5 3.4 (3.4-5.0) g/dL Intake and Output 07/12/18 07/12/18 07/13/18 14:59 22:59 06:59 Intake Total 902.5 / 902.5 850 / 850 Output Total 2099 Balance 902.5 / 902.5 -1250 / -1250 Intake: IV 902.5 / 902.5 EPINEPHrine (1:1000) Inj 2 MG 75 / 75 In D5W Inj 248 ML @ 3 MCG/MIN 22.5 mls/hr IV.CONT TITRATE PRN Rx#:[id number] Versed Inj 50 mg In 50 ml @ 2 60 / 60 MG/HR 2 mls/hr IV.CONT TITRATE PRN Rx#:[id number] NS Inj 1,000 ML @ 84 mls/hr IV. 700 / 700 CONT .[id number] HANNA Rx#:[id number] NS Inj 500 ML @ Wide Open IV. 0 / 0 SIG BOLUS HANNA Rx#:[id number] Oral 850 / 850 Output: Urine Amount (Catheter) 2099 Indwelling Urethral Catheter 2099 EKG interpretations - EKG EKG shows: bradycardia (sinus bradycardia) Assessment and Plan - Plan Symptomatic Bradycardia Acute Renal Failure Plan: Would agree with intubation and further doses of glucagon. A TTE has been ordered. Will continue to follow along. Thank you for allowing me to participate.
[2018-07-13] MEDS: Chlorhexidine Gluconate 2% 1 Pack (2 Cloths) TOPICAL SCH (06:48)
--- NOTE | 2018-07-13 08:02 | P.PNIM ---
Subjective Interval history: f/u; bradycardia in no acute distress. denies chest pain or sob. no new complaints. d/w the RN and no acute issues over night. Physical Exam Vital signs: Vital Signs 07/12/18 08:00 07/12/18 08:10 07/12/18 08:20 Temperature 97.3 F L 97.3 F L 97.5 F L Pulse Rate 52 L 51 L 52 L Respiratory Rate 21 17 23 Blood Pressure 121/75 130/76 135/76 Pulse Oximetry 100 100 100 07/12/18 08:31 07/12/18 08:40 07/12/18 08:50 Temperature 97.5 F L 97.7 F 97.7 F Pulse Rate 72 56 L 64 Respiratory Rate 32 H 16 18 Blood Pressure 156/79 H 118/73 153/84 H Pulse Oximetry 97 100 100 07/12/18 09:00 07/12/18 09:10 07/12/18 09:25 Temperature 97.7 F 97.7 F 97.9 F Pulse Rate 63 85 72 Respiratory Rate 22 34 H 22 Blood Pressure 134/82 137/89 153/81 H Pulse Oximetry 100 100 100 07/12/18 09:31 07/12/18 09:40 07/12/18 09:50 Temperature 98.1 F 98.2 F Pulse Rate 61 58 L Respiratory Rate 21 26 H Blood Pressure 118/80 121/75 Pulse Oximetry 100 97 98 07/12/18 10:00 07/12/18 10:10 07/12/18 10:20 Temperature 98.2 F 98.2 F 98.2 F Pulse Rate 59 L 55 L 53 L Respiratory Rate 27 H 22 19 Blood Pressure 120/73 115/75 Pulse Oximetry 98 99 99 07/12/18 10:31 07/12/18 10:40 07/12/18 10:50 Temperature 98.2 F 98.2 F 98.1 F Pulse Rate 54 L 60 60 Respiratory Rate 32 H 30 H 35 H Blood Pressure 138/84 145/85 H 134/79 Pulse Oximetry 100 100 100 07/12/18 11:00 07/12/18 11:10 07/12/18 11:20 Temperature 98.1 F 98.1 F 98.1 F Pulse Rate 62 62 62 Respiratory Rate 36 H 37 H 23 Blood Pressure 137/85 143/87 H 144/89 H Pulse Oximetry 100 100 99 07/12/18 11:21 07/12/18 11:31 07/12/18 11:41 Temperature 98.1 F 98.2 F Pulse Rate 58 L 61 62 Respiratory Rate 16 27 H 26 H Blood Pressure 141/80 H 128/79 Pulse Oximetry 98 98 07/12/18 11:50 07/12/18 12:00 07/12/18 12:10 Temperature 98.2 F 98.2 F 98.2 F Pulse Rate 61 65 61 Respiratory Rate 25 H 19 20 Blood Pressure 134/84 129/78 132/84 Pulse Oximetry 98 95 97 07/12/18 12:15 07/12/18 12:20 07/12/18 12:30 Temperature 98.2 F 98.2 F Pulse Rate 60 60 Respiratory Rate 14 19 20 Blood Pressure 135/82 129/78 Pulse Oximetry 97 97 07/12/18 12:40 07/12/18 12:51 07/12/18 13:00 Temperature 98.2 F 98.2 F 98.2 F Pulse Rate 66 60 54 L Respiratory Rate 16 14 16 Blood Pressure 135/80 131/84 130/79 Pulse Oximetry 98 98 98 07/12/18 13:21 07/12/18 13:30 07/12/18 13:40 Temperature 98.2 F 98.2 F 98.2 F Pulse Rate 60 59 L 57 L Respiratory Rate 31 H 22 18 Blood Pressure 123/92 H 130/88 124/86 Pulse Oximetry 98 97 97 07/12/18 13:50 07/12/18 14:00 07/12/18 14:01 Temperature 98.2 F 98.2 F 98.2 F Pulse Rate 58 L 56 L 61 Respiratory Rate 16 16 18 Blood Pressure 128/83 121/91 H Pulse Oximetry 92 L 95 88 L 07/12/18 14:10 07/12/18 14:20 07/12/18 14:30 Temperature 98.2 F 98.2 F 98.2 F Pulse Rate 55 L 54 L 51 L Respiratory Rate 21 22 20 Blood Pressure 130/76 133/82 133/83 Pulse Oximetry 99 99 98 07/12/18 14:41 07/12/18 14:50 07/12/18 15:00 Temperature 98.2 F 98.2 F 98.4 F Pulse Rate 51 L 57 L 49 L Respiratory Rate 24 20 20 Blood Pressure 132/86 127/87 134/81 Pulse Oximetry 97 99 98 07/12/18 15:07 07/12/18 15:10 07/12/18 15:20 Temperature 98.4 F 98.4 F Pulse Rate 50 L 49 L 52 L Respiratory Rate 16 21 19 Blood Pressure 147/89 H 136/83 Pulse Oximetry 100 100 07/12/18 15:30 07/12/18 15:40 07/12/18 15:50 Temperature 98.6 F 98.4 F 98.4 F Pulse Rate 53 L 54 L 54 L Respiratory Rate 20 20 22 Blood Pressure 131/77 136/83 121/83 Pulse Oximetry 99 98 98 07/12/18 16:00 07/12/18 16:10 07/12/18 16:20 Temperature 98.4 F 98.4 F 98.4 F Pulse Rate 54 L 53 L 53 L Respiratory Rate 21 20 20 Blood Pressure 110/78 110/67 113/73 Pulse Oximetry 97 96 96 07/12/18 16:30 07/12/18 16:40 07/12/18 16:50 Temperature 98.2 F 98.2 F 98.1 F Pulse Rate 53 L 52 L 51 L Respiratory Rate 20 20 19 Blood Pressure 105/67 108/69 111/71 Pulse Oximetry 96 96 97 07/12/18 16:59 07/12/18 17:00 07/12/18 17:10 Temperature 98.1 F 98.1 F 98.1 F Pulse Rate 54 L 52 L 57 L Respiratory Rate 22 19 21 Blood Pressure 114/77 127/75 Pulse Oximetry 97 98 96 07/12/18 17:20 07/12/18 17:30 07/12/18 17:50 Temperature 97.9 F 97.7 F 97.7 F Pulse Rate 58 L 56 L 57 L Respiratory Rate 20 20 22 Blood Pressure 125/79 124/81 116/82 Pulse Oximetry 95 98 95 07/12/18 18:00 07/12/18 18:10 07/12/18 18:20 Temperature 97.7 F 97.7 F 97.7 F Pulse Rate 57 L 56 L 59 L Respiratory Rate 25 H 23 20 Blood Pressure 129/85 123/81 134/85 Pulse Oximetry 97 98 96 07/12/18 18:31 07/12/18 18:40 07/12/18 18:50 Temperature 97.7 F 97.7 F 97.7 F Pulse Rate 57 L 55 L 53 L Respiratory Rate 18 19 27 H Blood Pressure 145/76 H 115/78 123/82 Pulse Oximetry 97 97 96 07/12/18 19:00 07/12/18 19:10 07/12/18 19:20 Temperature 97.7 F 97.7 F 97.7 F Pulse Rate 53 L 57 L 55 L Respiratory Rate 21 18 23 Blood Pressure 124/77 129/84 127/84 Pulse Oximetry 98 99 100 07/12/18 19:30 07/12/18 19:40 07/12/18 19:50 Temperature 97.7 F 97.7 F 97.7 F Pulse Rate 54 L 52 L 62 Respiratory Rate 38 H 34 H 37 H Blood Pressure 126/85 125/82 162/87 H Pulse Oximetry 98 97 97 07/12/18 20:00 07/12/18 20:11 07/12/18 20:17 Temperature 97.9 F 97.9 F Pulse Rate 54 L 62 71 Respiratory Rate 25 H 30 H 18 Blood Pressure 136/71 138/83 Pulse Oximetry 97 99 07/12/18 20:19 07/12/18 20:20 07/12/18 20:30 Temperature 97.9 F 97.9 F Pulse Rate 55 L 57 L Respiratory Rate 18 19 Blood Pressure 130/77 122/75 Pulse Oximetry 98 98 97 07/12/18 20:40 07/12/18 20:50 07/12/18 21:00 Temperature 97.7 F 97.7 F 97.5 F L Pulse Rate 63 60 59 L Respiratory Rate 28 H 20 20 Blood Pressure 132/72 132/85 134/84 Pulse Oximetry 93 L 99 97 07/12/18 21:10 07/12/18 21:20 07/12/18 21:31 Temperature 97.5 F L 97.5 F L 97.7 F Pulse Rate 58 L 64 63 Respiratory Rate 20 28 H 27 H Blood Pressure 129/82 136/79 135/90 Pulse Oximetry 97 98 96 07/12/18 21:40 07/12/18 21:50 07/12/18 22:00 Temperature 97.5 F L 97.7 F 97.7 F Pulse Rate 58 L 62 58 L Respiratory Rate 28 H 33 H 20 Blood Pressure 130/84 132/88 115/72 Pulse Oximetry 97 98 96 09/08/18 22:09 07/12/18 22:10 07/12/18 22:20 Temperature 97.7 F 97.7 F 97.7 F Pulse Rate 59 L 59 L 60 Respiratory Rate 18 19 18 Blood Pressure 117/74 127/77 Pulse Oximetry 95 95 96 07/12/18 22:30 07/12/18 22:41 07/12/18 22:50 Temperature 97.7 F 97.7 F 97.5 F L Pulse Rate 57 L 56 L 56 L Respiratory Rate 20 19 21 Blood Pressure 124/76 112/75 119/77 Pulse Oximetry 97 96 96 07/12/18 23:00 07/12/18 23:10 07/12/18 23:20 Temperature 97.5 F L 97.5 F L 97.3 F L Pulse Rate 56 L 56 L 55 L Respiratory Rate 20 20 21 Blood Pressure 114/75 122/82 122/76 Pulse Oximetry 97 96 97 07/12/18 23:30 07/12/18 23:35 07/12/18 23:40 Temperature 97.3 F L 97.3 F L Pulse Rate 54 L 53 L 53 L Respiratory Rate 19 16 17 Blood Pressure 116/75 130/81 Pulse Oximetry 97 100 07/12/18 23:50 07/13/18 00:00 07/13/18 00:10 Temperature 97.3 F L 97.3 F L 97.2 F L Pulse Rate 53 L 59 L 58 L Respiratory Rate 24 21 16 Blood Pressure 137/85 138/85 149/88 H Pulse Oximetry 100 98 98 07/13/18 00:21 07/13/18 00:31 07/13/18 01:00 Temperature 97.0 F L 97.2 F L 97.0 F L Pulse Rate 60 78 59 L Respiratory Rate 26 H 40 H 32 H Blood Pressure 154/97 H 136/84 Pulse Oximetry 95 100 99 07/13/18 01:12 07/13/18 01:30 07/13/18 02:00 Temperature 97.0 F L 96.8 F L 97.7 F Pulse Rate 54 L 53 L 52 L Respiratory Rate 20 24 21 Blood Pressure 141/84 H 144/85 H 125/79 Pulse Oximetry 100 99 97 07/13/18 02:31 07/13/18 03:00 07/13/18 03:31 Temperature 97.7 F 97.7 F Pulse Rate 51 L 50 L 50 L Respiratory Rate 21 22 22 Blood Pressure 136/65 132/78 120/71 Pulse Oximetry 98 98 98 07/13/18 04:00 07/13/18 04:04 07/13/18 04:31 Temperature 97.9 F Pulse Rate 50 L 53 L 49 L Respiratory Rate 21 18 17 Blood Pressure 163/96 H 132/84 Pulse Oximetry 97 99 100 07/13/18 05:00 07/13/18 05:08 07/13/18 05:11 Temperature Pulse Rate 69 66 65 Respiratory Rate 25 H 28 H 20 Blood Pressure 150/100 H 145/94 H Pulse Oximetry 99 86 L 100 07/13/18 05:30 07/13/18 06:00 07/13/18 06:30 Temperature Pulse Rate 53 L 63 52 L Respiratory Rate 20 18 22 Blood Pressure 150/91 H 150/94 H 163/96 H Pulse Oximetry 100 100 99 Intake & Output 07/12/18 07/13/18 07/13/18 18:59 06:59 18:59 Intake Total 1752.5 / 1752.5 915 / 915 Output Total 2099 1430 / 1430 Balance -347.5 / -347.5 -515 / -515 Weight 87.5 kg Intake: IV 902.5 / 902.5 EPINEPHrine (1:1000) Inj 2 MG 75 / 75 In D5W Inj 248 ML @ 3 MCG/MIN 22.5 mls/hr IV.CONT TITRATE PRN Rx#:[id number] Versed Inj 50 mg In 50 ml @ 2 60 / 60 MG/HR 2 mls/hr IV.CONT TITRATE PRN Rx#:[id number] NS Inj 1,000 ML @ 84 mls/hr IV. 700 / 700 CONT .[id number] ACE Rx#:[id number] NS Inj 500 ML @ Wide Open IV. 0 / 0 SIG BOLUS ACE Rx#:[id number] Oral 850 / 850 915 / 915 Output: Urine 430 / 430 Urine Amount (Catheter) 2099 1000 / 1000 Indwelling Urethral Catheter 2099 Straight 1000 / 1000 Other: # Bowel Movements 0 - Constitutional no acute distress - Routine Respiratory Exam Present: CTA bilaterally - Routine Cardiovascular Exam Present: RRR - Routine Abdominal Exam Present: soft - Routine Extremities Exam Comments: no pedal edema. - Routine Neurological Exam Present: alert, oriented X3 - Urinary Catheter Management Indwelling Urethral Catheter Cath placed during this visit: yes Reason for continuing: Hourly intake/output Insertion date: 07/11/18 Insertion time: 16:45 Straight Cath placed during this visit: yes, but has since been removed by the nurse Reason for continuing: Not indwelling catheter Insertion date: 07/13/18 Insertion time: 00:25 Removal date: 07/13/18 Removal time: 00:30 Results - Labs CBC & Chem 7: 07/13/18 03:20 07/13/18 03:20 Laboratory Results - last 24 hr 07/12/18 07/12/18 07/12/18 10:25 13:18 14:30 WBC RBC Hgb Hct MCV MCH MCHC RDW Plt Count MPV Neut % (Auto) Lymph % (Auto) [place] % (Auto) Eos % (Auto) Baso % (Auto) Neut # (Auto) Lymph # (Auto) [place] # (Auto) Eos # (Auto) Baso # (Auto) WBC Differential Differential Comment Sodium 145 Potassium 5.0 Chloride 114 H Carbon Dioxide 24.1 Anion Gap 7 BUN 46 H Creatinine 2.57 H Estimated GFR 26 L POC Glucose 110 96 Random Glucose 114 H Calcium 10.1 Phosphorus Magnesium Total Bilirubin AST ALT Alkaline Phosphatase Total Protein Albumin 07/12/18 07/13/18 07/13/18 18:11 02:05 03:20 WBC 7.1 RBC 3.97 L Hgb 13.4 Hct 39.3 MCV 98.9 MCH 33.7 MCHC 34.0 RDW 14.2 Plt Count 148 L MPV 9.8 Neut % (Auto) 49.9 Lymph % (Auto) 33.9 [place] % (Auto) 9.9 H Eos % (Auto) 5.8 H Baso % (Auto) 0.5 Neut # (Auto) 3.5 Lymph # (Auto) 2.4 [place] # (Auto) 0.7 Eos # (Auto) 0.4 Baso # (Auto) 0.0 WBC Differential . Differential Comment Auto diff final Sodium Potassium Chloride Carbon Dioxide Anion Gap BUN Creatinine Estimated GFR POC Glucose 106 109 Random Glucose Calcium Phosphorus Magnesium Total Bilirubin AST ALT Alkaline Phosphatase Total Protein Albumin 07/13/18 07/13/18 03:20 06:31 WBC RBC Hgb Hct MCV MCH MCHC RDW Plt Count MPV Neut % (Auto) Lymph % (Auto) [place] % (Auto) Eos % (Auto) Baso % (Auto) Neut # (Auto) Lymph # (Auto) [place] # (Auto) Eos # (Auto) Baso # (Auto) WBC Differential Differential Comment Sodium 145 Potassium 4.5 Chloride 115 H Carbon Dioxide 25.4 Anion Gap 5 BUN 35 H Creatinine 1.71 H Estimated GFR 42 L POC Glucose 99 Random Glucose 85 Calcium 10.5 H Phosphorus 3.0 Magnesium 1.8 Total Bilirubin 0.4 AST 39 H ALT 29 Alkaline Phosphatase 78 Total Protein 6.0 L Albumin 3.4 Microbiology 07/11/18 17:05 Clean Catch Urine Urine Culture - Preliminary No growth in 24 hours 07/11/18 19:19 Blood - Peripheral Aerobic Blood Culture - Preliminary No growth in 1 day 07/11/18 19:19 Blood - Peripheral Anaerobic Blood Culture - Preliminary No growth in 1 day 07/11/18 19:24 Blood - Peripheral Aerobic Blood Culture - Preliminary No growth in 1 day 07/11/18 19:24 Blood - Peripheral Anaerobic Blood Culture - Preliminary No growth in 1 day Assessment and Plan - Plan NEURO: -Encephalopathy -resolved. -MRI brain was read as white matter abnormality, concerning for small vessel disease vs demyelinating disease vs encephalitis. Patient reports no fever, confusion, or headache prior to coming to the ED and has no signs or symptoms concerning for encephalitis at present. No indication for LP. -Nicotine patch, counseled on smoking cessation CARDIO: -Bradycardia not responsive to atropine or transcutaneous pacing, but responsive to glucagon * Presumed beta macario toxicity- likely due to decreased excretion secondary to renal failure * Received a bolus of intralipid and was rapidly weaned off pressors/ ionotropes , HR now consistently in mid 50s -hypertension; taking lisinoipril at home which will be dc'ed due to ARIELLE- will start on hydralazine and continue to monitor. -2D echo -Trop negative -EP consulted in ED, appreciate recommendations GI: -Speech eval appreciated. RENAL: -Acute renal failure - renal function improved -continue to monitor TOX: -Urine drug screen positive for cocaine -Salicylate level minimally positive on arrival but trending down -APAP and alcohol negative -BB toxicity as noted above PROPHY: -Pepcid -SCDs, heparin transfer to telemetry. Discharge Planning: dc home tomorrow if stable/ pending echo and cardiology clearance.
[2018-07-13] MEDS: hydrALAZINE 10 MG Tablet PO SCH ×3 (08:59→17:36)
[2018-07-13] MEDS: Famotidine 20 MG Tablet PO SCH ×2 (09:00→20:41)
[2018-07-13] MEDS: Famotidine PF Inj 20 MG/2 ML Vial IV.PUSH SCH ×2 (09:01→20:42)
[2018-07-13] MEDS: Senna/Docusate Sodium 8.6/50 MG Tablet PO SCH ×2 (09:01→20:41)
--- NOTE | 2018-07-13 10:46 | ECHRPT ---
Indication: Cardiomyopathy, unspecified CONCLUSIONS The left ventricular systolic function is normal with an estimated ejection fraction in the range of 60-65%. Wall thickness is measured at the upper limits of normal. Normal left ventricular size. There is mild tricuspid valve regurgitation. The estimated pulmonary arterial pressure is 31.7 mmHg. technically difficult study BP: / HR: Rhythm: Sinus MEASUREMENTS (Male / Female) Normal Values Technical Quality:Fair 2D ECHO LV Diastolic Diameter PLAX 5.1 cm 4.2 - 5.9 / 3.9 - 5.3 cm LV Systolic Diameter PLAX 3.6 cm IVS Diastolic Thickness 1.0 cm 0.6 - 1.0 / 0.6 - 0.9 cm LVPW Diastolic Thickness 1.0 cm 0.6 - 1.0 / 0.6 - 0.9 cm LV Relative Wall Thickness 0.4 LVOT Diameter 2.2 cm M-MODE Aortic Root Diameter MM 3.4 cm LA Systolic Diameter MM 4.3 cm LA Ao Ratio MM 1.3 AV Cusp Separation MM 2.3 cm DOPPLER AV Peak Velocity 148.0 cm/s AV Peak Gradient 8.8 mmHg LVOT Peak Velocity 136.0 cm/s LVOT Peak Gradient 7.4 mmHg AV Area Cont Eq pk 3.5 cm Mitral E Point Velocity 83.9 cm/s Mitral A Point Velocity 45.4 cm/s Mitral E to A Ratio 1.8 LV E' Lateral Velocity 3.0 cm/s Mitral E to LV E' Lateral Ratio 27.8 LV E' Septal Velocity 8.8 cm/s Mitral E to LV E' Septal Ratio 9.6 TR Peak Velocity 233.0 cm/s TR Peak Gradient 21.7 mmHg Right Atrial Pressure 10.0 mmHg Pulmonary Artery Systolic Pressu 31.7 mmHg Right Ventricular Systolic Press 31.7 mmHg PV Peak Velocity 162.0 cm/s PV Peak Gradient 10.5 mmHg FINDINGS LEFT VENTRICLE The left ventricular systolic function is normal with an estimated ejection fraction in the range of 60-65%. Wall thickness is measured at the upper limits of normal. Normal left ventricular size. RIGHT VENTRICLE Normal right ventricular size and systolic function. LEFT ATRIUM The left atrial size is normal. RIGHT ATRIUM The right atrial size is normal. ATRIAL SEPTUM Normal atrial septal thickness without atrial level shunting by limited color doppler interrogation. AORTA The aortic root and proximal ascending aorta are normal in size on limited imaging. MITRAL VALVE Structurally normal mitral valve. No mitral valve stenosis or regurgitation. AORTIC VALVE Trileaflet aortic valve. No aortic valve stenosis or regurgitation. TRICUSPID VALVE There is mild tricuspid valve regurgitation. The estimated pulmonary arterial pressure is 31.7 mmHg. PULMONARY VALVE No pulmonary valve regurgitation or stenosis. VESSELS The inferior vena cava is normal in size. PERICARDIUM No pericardial effusion. Scott Moss MD, FACC (Electronically Signed) Final Date:13 July 2018 10:46
--- NOTE | 2018-07-13 12:40 | ECG ---
Date Performed: 07/12/2018 Time Performed: 14:17:54 PTAGE: 58 years EKG: SINUS BRADYCARDIA BORDERLINE ECG PREVIOUS TRACING : 07/11/2018 14.39 Since the previous tracing, no significant change noted DOCTOR: Erik Felix Interpretating Date/Time 07/13/2018 12:36:16
[2018-07-13] MEDS ORDERED: Baclofen 10 MG Tablet PO PRN (12:41)
--- NOTE | 2018-07-13 12:42 | ECG ---
Date Performed: 07/11/2018 Time Performed: 14:39:34 PTAGE: 58 years EKG: SINUS BRADYCARDIA ST ELEVATION, PROBABLY EARLY REPOLARIZATION ABNORMAL RHYTHM ECG Compared to PREVIOUS TRACING sinus bradycardia is now present PREVIOUS TRACIN06/20/2017 12.20 DOCTOR: Erik Felix Interpretating Date/Time 07/13/2018 12:39:30
[2018-07-13] MEDS: Acetaminophen 325 MG Tablet PO PRN (20:42)
[2018-07-14] MEDS: Heparin - SQ 10,000 UNITS/ML Vial SQ SCH ×3 (02:00→17:25)
[2018-07-14] MEDS: Chlorhexidine Gluconate 2% 1 Pack (2 Cloths) TOPICAL SCH (04:34)
[2018-07-14 05:02] LABS: Calcium 11.1 mg/dL (8.5-10.1); Carbon Dioxide 29.3 meq/L (21.0-32.0); Potassium 5.1 meq/L (3.5-5.1)
[2018-07-14] MEDS ORDERED: Lisinopril 20 MG Tablet PO ONE ×2 (06:22→09:55)
--- NOTE | 2018-07-14 07:42 | P.PNIM ---
Subjective Interval history: f/u; uncontrolled hypertension in no acute distress. has some pain to the lower extremities and feeling anxious. d/w the RN and no acute issues over night. BP trend noted. d/w the RN. Physical Exam Vital signs: Vital Signs 07/13/18 08:00 07/13/18 08:06 07/13/18 10:00 Temperature 98 F 98 F Pulse Rate 56 L 52 L 70 Respiratory Rate 24 15 24 Blood Pressure 157/90 H 148/92 H Pulse Oximetry 99 100 99 07/13/18 10:45 07/13/18 11:00 07/13/18 11:17 Temperature Pulse Rate 63 62 55 L Respiratory Rate 31 H 24 16 Blood Pressure 148/87 H 148/92 H Pulse Oximetry 92 L 99 07/13/18 11:30 07/13/18 12:00 07/13/18 12:30 Temperature 97.8 F Pulse Rate 66 59 L 55 L Respiratory Rate 36 H 20 21 Blood Pressure 157/108 H 151/98 H 150/92 H Pulse Oximetry 98 98 98 07/13/18 13:00 07/13/18 13:30 07/13/18 14:00 Temperature Pulse Rate 69 57 L 59 L Respiratory Rate 33 H 17 32 H Blood Pressure 135/89 153/91 H 160/94 H Pulse Oximetry 81 L 95 93 L 07/13/18 14:30 07/13/18 15:00 07/13/18 15:21 Temperature Pulse Rate 57 L 59 L 52 L Respiratory Rate 18 23 16 Blood Pressure 161/94 H 171/89 H Pulse Oximetry 99 87 L 07/13/18 15:31 07/13/18 16:00 07/13/18 16:43 Temperature 98.6 F Pulse Rate 66 62 64 Respiratory Rate 26 H 25 H 25 H Blood Pressure 161/92 H 155/92 H 150/91 H Pulse Oximetry 72 L 80 L 88 L 07/13/18 17:00 07/13/18 17:31 07/13/18 17:32 Temperature Pulse Rate 59 L 59 L 59 L Respiratory Rate 17 32 H 18 Blood Pressure 144/91 H 173/93 H 157/93 H Pulse Oximetry 100 07/13/18 18:00 07/13/18 18:32 07/13/18 18:47 Temperature Pulse Rate 56 L 65 58 L Respiratory Rate 24 38 H 18 Blood Pressure 173/88 H 177/104 H 158/96 H Pulse Oximetry 100 88 L 99 07/13/18 19:00 07/13/18 19:30 07/13/18 19:37 Temperature Pulse Rate 59 L 58 L 57 L Respiratory Rate 22 22 12 Blood Pressure 157/93 H 153/86 H Pulse Oximetry 100 100 07/13/18 20:00 07/13/18 20:30 07/13/18 21:00 Temperature 98 F Pulse Rate 60 64 63 Respiratory Rate 18 26 H 19 Blood Pressure 157/84 H 172/93 H 148/96 H Pulse Oximetry 95 89 L 96 07/13/18 21:30 07/13/18 21:57 07/13/18 22:00 Temperature Pulse Rate 65 62 Respiratory Rate 21 22 37 H Blood Pressure 143/88 H 152/84 H Pulse Oximetry 95 97 07/13/18 22:30 07/13/18 23:00 07/13/18 23:30 Temperature Pulse Rate 62 59 L 60 Respiratory Rate 31 H 33 H 21 Blood Pressure 136/80 120/66 128/68 Pulse Oximetry 93 L 93 L 93 L 07/14/18 00:00 07/14/18 00:02 07/14/18 00:21 Temperature 98.2 F Pulse Rate 55 L 57 L 61 Respiratory Rate 36 H 19 20 Blood Pressure 146/84 H 146/84 H Pulse Oximetry 96 95 07/14/18 00:31 07/14/18 01:00 07/14/18 01:30 Temperature Pulse Rate 52 L 54 L 59 L Respiratory Rate 26 H 40 H 20 Blood Pressure 146/99 H 153/90 H 159/86 H Pulse Oximetry 100 99 98 07/14/18 02:00 07/14/18 02:30 07/14/18 03:00 Temperature Pulse Rate 59 L 57 L 55 L Respiratory Rate 20 19 19 Blood Pressure 136/80 137/82 130/84 Pulse Oximetry 95 95 95 07/14/18 03:30 07/14/18 03:55 07/14/18 04:00 Temperature 98 F Pulse Rate 70 53 L 51 L Respiratory Rate 16 24 35 H Blood Pressure 151/89 H 164/91 H Pulse Oximetry 63 L 100 07/14/18 04:30 07/14/18 04:39 07/14/18 05:00 Temperature Pulse Rate 58 L 54 L 61 Respiratory Rate 18 23 16 Blood Pressure 173/107 H 164/107 H 168/109 H Pulse Oximetry 99 98 100 07/14/18 05:05 07/14/18 05:30 07/14/18 05:40 Temperature Pulse Rate 54 L 56 L 55 L Respiratory Rate 20 27 H 20 Blood Pressure 155/99 H 183/103 H 153/92 H Pulse Oximetry 99 98 98 07/14/18 06:00 07/14/18 06:01 07/14/18 06:04 Temperature Pulse Rate 67 60 58 L Respiratory Rate 25 H 32 H 39 H Blood Pressure 188/106 H 166/103 H Pulse Oximetry 96 86 L 100 07/14/18 06:06 Temperature Pulse Rate 63 Respiratory Rate 24 Blood Pressure 169/107 H Pulse Oximetry 98 Intake & Output 07/13/18 07/14/18 07/14/18 18:59 06:59 18:59 Intake Total 830 / 830 690 / 690 Output Total 1999 1400 / 1400 Balance -1170 / -1170 -710 / -710 Weight 87.5 kg Intake: Oral 830 / 830 690 / 690 Output: Urine 1999 1400 / 1400 Other: # Voids 4 # Bowel Movements 0 - Constitutional no acute distress - Routine Respiratory Exam Present: CTA bilaterally - Routine Cardiovascular Exam Present: RRR - Routine Abdominal Exam Present: soft - Routine Extremities Exam Comments: no pedal edema. - Routine Neurological Exam Present: alert, oriented X3 - Urinary Catheter Management Indwelling Urethral Catheter Cath placed during this visit: yes Reason for continuing: Hourly intake/output Insertion date: 07/11/18 Insertion time: 16:45 Straight Cath placed during this visit: yes, but has since been removed by the nurse Reason for continuing: Not indwelling catheter Insertion date: 07/13/18 Insertion time: 00:25 Removal date: 07/13/18 Removal time: 00:30 Results - Labs CBC & Chem 7: 07/13/18 03:20 07/14/18 03:30 Laboratory Results - last 24 hr 07/13/18 07/14/18 07/14/18 17:32 01:13 03:30 Sodium 145 Potassium 5.1 Chloride 112 H Carbon Dioxide 29.3 Anion Gap 4 L BUN 20 H Creatinine 1.17 Estimated GFR 64 L POC Glucose 79 111 H Random Glucose 102 Calcium 11.1 H 07/14/18 06:25 Sodium Potassium Chloride Carbon Dioxide Anion Gap BUN Creatinine Estimated GFR POC Glucose 96 Random Glucose Calcium Microbiology 07/11/18 17:05 Clean Catch Urine Urine Culture - Final No growth in 48 hours 07/11/18 19:19 Blood - Peripheral Aerobic Blood Culture - Preliminary No growth in 2 days 07/11/18 19:19 Blood - Peripheral Anaerobic Blood Culture - Preliminary No growth in 2 days 07/11/18 19:24 Blood - Peripheral Aerobic Blood Culture - Preliminary No growth in 2 days 07/11/18 19:24 Blood - Peripheral Anaerobic Blood Culture - Preliminary No growth in 2 days Assessment and Plan - Plan NEURO: -Encephalopathy -resolved. -MRI brain was read as white matter abnormality, concerning for small vessel disease vs demyelinating disease vs encephalitis. Patient reports no fever, confusion, or headache prior to coming to the ED and has no signs or symptoms concerning for encephalitis at present. No indication for LP. -Nicotine patch, counseled on smoking cessation CARDIO: -Bradycardia not responsive to atropine or transcutaneous pacing, but responsive to glucagon * Presumed beta macario toxicity- likely due to decreased excretion secondary to renal failure * Received a bolus of intralipid and was rapidly weaned off pressors/ ionotropes - HR now improved. -hypertension; taking lisinoipril at home which will be dc'ed due to ARIELLE- will stop metorolol ( that he's taking at home) -continue Hydralazine and start on Norvasc -2D echo with EF60% -Trop negative -cardiology following. Respiratory - acute respiratory failure- s/p intubation/extubation- -resolved and now stable -continue with oxygen and neb treatment as needed. GI: -Speech eval appreciated. RENAL: Acute renal failure- much improved mild hypercalcemia - lisinopril discontinued. -check PTH -continue to monitor TOX: -Urine drug screen positive for cocaine -Salicylate level minimally positive on arrival but trending down -APAP and alcohol negative -BB toxicity as noted above PROPHY: -Pepcid -SCDs, heparin for transfer to floor. Discharge Planning: dc home tomorrow if stable .
[2018-07-14] MEDS: Senna/Docusate Sodium 8.6/50 MG Tablet PO SCH ×2 (08:16→21:24)
[2018-07-14] MEDS: hydrALAZINE 10 MG Tablet PO SCH ×2 (08:16→12:03)
[2018-07-14] MEDS: Famotidine 20 MG Tablet PO SCH ×2 (08:16→21:24)
[2018-07-14] MEDS: ALPRAZolam 0.25 MG Tablet PO PRN ×2 (08:22→21:28)
[2018-07-14] MEDS ORDERED: amLODIPine 5 MG Tablet PO SCH (09:00)
[2018-07-14] MEDS: hydrALAZINE 25 MG Tablet PO SCH (17:24)
[2018-07-15] MEDS: Heparin - SQ 10,000 UNITS/ML Vial SQ SCH ×2 (03:38→10:06)
[2018-07-15] MEDS: ALPRAZolam 0.25 MG Tablet PO PRN (06:45)
[2018-07-15] MEDS: Chlorhexidine Gluconate 2% 1 Pack (2 Cloths) TOPICAL SCH (07:44)
[2018-07-15] MEDS: Famotidine 20 MG Tablet PO SCH (08:57)
[2018-07-15] MEDS: Senna/Docusate Sodium 8.6/50 MG Tablet PO SCH (08:57)
[2018-07-15] MEDS: hydrALAZINE 25 MG Tablet PO SCH (08:57)
[2018-07-15] MEDS ORDERED: amLODIPine 10 MG Tablet PO SCH (09:00)
--- NOTE | 2018-07-15 09:04 | P.PNIM ---
Physical Exam Vital signs: Vital Signs 07/14/18 10:00 07/14/18 12:00 07/14/18 14:00 Temperature 97.7 F Pulse Rate 75 59 L 66 Respiratory Rate 22 Blood Pressure 152/92 H Pulse Oximetry 96 07/14/18 16:00 07/14/18 18:00 07/14/18 20:00 Temperature 98.0 F 97.8 F Pulse Rate 58 L 59 L 56 L Respiratory Rate 22 18 Blood Pressure 161/101 H 144/97 H Pulse Oximetry 98 96 07/14/18 22:00 07/15/18 00:00 07/15/18 02:00 Temperature 98 F Pulse Rate 57 L 51 L 57 L Respiratory Rate 16 Blood Pressure 150/95 H Pulse Oximetry 94 L 07/15/18 04:00 07/15/18 06:00 07/15/18 07:43 Temperature 99 F Pulse Rate 49 L 57 L Respiratory Rate 16 14 Blood Pressure 152/82 H Pulse Oximetry 98 07/15/18 08:39 Temperature Pulse Rate Respiratory Rate Blood Pressure Pulse Oximetry 100 Intake & Output 07/14/18 07/15/18 07/15/18 18:59 06:59 18:59 Intake Total 1000 / 1000 400 / 400 Output Total 2049 / 2049 1500 / 1500 Balance -1050 / -1050 -1100 / -1100 Weight 88 kg Intake: Oral 1000 / 1000 400 / 400 Output: Urine 2049 / 2049 1500 / 1500 Other: # Voids 5 4 - Urinary Catheter Management Indwelling Urethral Catheter Cath placed during this visit: yes Reason for continuing: Hourly intake/output Insertion date: 07/11/18 Insertion time: 16:45 Straight Cath placed during this visit: yes, but has since been removed by the nurse Reason for continuing: Not indwelling catheter Insertion date: 07/13/18 Insertion time: 00:25 Removal date: 07/13/18 Removal time: 00:30 Results - Labs CBC & Chem 7: 07/13/18 03:20 07/14/18 03:30 Laboratory Results - last 24 hr 07/14/18 07/14/18 07/14/18 12:01 16:10 18:44 POC Glucose 110 112 H PTH Intact 42.6 Microbiology 07/11/18 19:19 Blood - Peripheral Aerobic Blood Culture - Preliminary No growth in 3 days 07/11/18 19:19 Blood - Peripheral Anaerobic Blood Culture - Preliminary No growth in 3 days 07/11/18 19:24 Blood - Peripheral Aerobic Blood Culture - Preliminary No growth in 3 days 07/11/18 19:24 Blood - Peripheral Anaerobic Blood Culture - Preliminary No growth in 3 days
--- NOTE | 2018-07-15 09:46 | P.DS ---
Date of admission: 07/11/18 16:39 Primary care physician: UNKNOWN Brief History from admission: 58yM who presented to the ED complaining of chest tightness. He told the ED physician that he takes metoprolol 100 mg BID and was found to be confused, lethargic, with garbled speech. He became bradycardic to the 30s and somnolent. He was given narcan with no improvement in mentation; HR unresponsive to atropine; an attempt at transcutaneous pacing was unsuccessful. After discussion with the poison control center, glucagon was given for possible beta macario overdose with increase in heart rate to 50s. He was started on a dopamine gtt for hypotension and required intubation for airway protection. There are no friends or family available to provide further information; the patient is intubated and I am unable to elicit further details of HPI, ROS, PMH/ PSH/ allergies/ family history/ social history. Patient update on day of discharge: Patient reports he is feeling ok today. Eager to be discharged. DS: Diagnosis - Discharge Diagnosis (1) Acute renal failure Status: Acute (2) Cocaine abuse Status: Acute (3) Encephalopathy acute Status: Acute (4) Hypothermia Status: Acute (5) Respiratory failure requiring intubation Status: Acute (6) Shock Status: Acute (7) Symptomatic bradycardia Status: Acute DS: Medications - Discharge Medications Prescriptions: amlodipine [Norvasc] 10 mg PO DAILY #30 tab hydralazine 25 mg PO TID #90 tab DS: Summary Hospital Course: 58 Y/O male admitted and treated for the following: -Encephalopathy -resolved. -MRI brain was read as white matter abnormality, concerning for small vessel disease vs demyelinating disease vs encephalitis. Patient reports no fever, confusion, or headache prior to coming to the ED and has no signs or symptoms concerning for encephalitis at present. No indication for LP. -Nicotine patch, counseled on smoking cessation -Bradycardia not responsive to atropine or transcutaneous pacing, but responsive to glucagon * Presumed beta macario toxicity- likely due to decreased excretion secondary to renal failure * Received a bolus of intralipid and was rapidly weaned off pressors/ ionotropes - HR now improved. -hypertension; taking lisinopril at home which was dc'ed due to ARIELLE- Metoprolol stopped. -continue Hydralazine and started on Norvasc -2D echo with EF60% -Trop negative -cardiology followed. acute respiratory failure- s/p intubation/extubation- -resolved and now stable -continue with oxygen and neb treatment as needed. Acute renal failure- much improved mild hypercalcemia - lisinopril discontinued. Urine drug screen positive for cocaine -Salicylate level minimally positive on arrival but trending down -APAP and alcohol negative -BB toxicity as noted above Patient counseled on cessation. - Time Spent with Patient Total time spent providing and/or coordinating discharge services: Less than 30 minutes Exam Vital signs: Vital Signs 07/14/18 10:00 07/14/18 12:00 07/14/18 14:00 Temperature 97.7 F Pulse Rate 75 59 L 66 Respiratory Rate 22 Blood Pressure 152/92 H Pulse Oximetry 96 07/14/18 16:00 07/14/18 18:00 07/14/18 20:00 Temperature 98.0 F 97.8 F Pulse Rate 58 L 59 L 56 L Respiratory Rate 22 18 Blood Pressure 161/101 H 144/97 H Pulse Oximetry 98 96 07/14/18 22:00 07/15/18 00:00 07/15/18 02:00 Temperature 98 F Pulse Rate 57 L 51 L 57 L Respiratory Rate 16 Blood Pressure 150/95 H Pulse Oximetry 94 L 07/15/18 04:00 07/15/18 06:00 07/15/18 07:43 Temperature 99 F Pulse Rate 49 L 57 L Respiratory Rate 16 14 Blood Pressure 152/82 H Pulse Oximetry 98 07/15/18 08:00 07/15/18 08:39 Temperature Pulse Rate Respiratory Rate 20 Blood Pressure Pulse Oximetry 100 Intake & Output 07/14/18 07/15/18 07/15/18 18:59 06:59 18:59 Intake Total 1000 / 1000 400 / 400 Output Total 2049 1500 / 1500 Balance -1050 / -1050 -1100 / -1100 Weight 88 kg Intake: Oral 1000 / 1000 400 / 400 Output: Urine 2049 1500 / 1500 Other: # Voids 5 4 - Constitutional no acute distress - Routine Respiratory Exam Present: CTA bilaterally - Routine Cardiovascular Exam Present: RRR, S1, S2 - Routine Abdominal Exam Present: soft, normoactive bowel sounds Results Procedures completed during hospitalization: Intubation/Extubation Labs on day of discharge: Labs from last 24 hours 07/14/18 07/14/18 07/14/18 18:44 16:10 12:01 POC Glucose 112 H 110 PTH Intact 42.6 Preliminary micro results at discharge 07/11/18 19:19 Aerobic Blood Culture - Preliminary Blood - Peripheral No growth in 3 days Anaerobic Blood Culture - Preliminary No growth in 3 days 07/11/18 19:24 Aerobic Blood Culture - Preliminary Blood - Peripheral No growth in 3 days Anaerobic Blood Culture - Preliminary No growth in 3 days - Impressions ITS Impressions Abdomen/Bladder Ultrasound 07/11/18 00:00 CONCLUSION: 1. No evidence of hydronephrosis on either side. 2. Bilateral renal stones correlate with findings on recent noncontrast CT. 3. The hyperdense lesion seen in the upper pole left kidney has features characteristic of a cyst on ultrasound and probably represents a proteinaceous cyst. Head CT 07/11/18 00:00 CONCLUSION: 1. Extensive areas of white matter hypointensity. This is nonspecific and may represent sequelae of chronic small vessel ischemic change, however, the more focal areas within the superior convexities raise concern for possible acute abnormality. Recommend further evaluation with MRI. . Head MRI 07/11/18 18:51 CONCLUSION: 1. No acute infarct, acute hemorrhage, midline shift or extra-axial fluid collections. 2. Moderate periventricular and subcortical white matter signal abnormalities which are nonspecific. Small vessel ischemic changes or demyelination should be considered. Encephalitis should be ruled out clinically also. 3. Bilateral pontine ischemic changes versus edema. 4. 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 Chest X-Ray 07/12/18 02:38 CONCLUSION: 1. Left internal jugular catheter tip and ET tube in good position. 2. Patchy infiltrates in the central and lower left lung. Discharge Plan - Discharge Disposition Patient Disposition: 01 Discharge Home - Discharge Condition Condition: Good - Discharge Order Discharge Orders: Discharge Order (Routine); Ordered 07/15/18 Ordered By: Verónica Plunkett - Physicians Team Primary Care Provider: UNKNOWN, Attending Provider: Verónica Plunkett Other Providers: Leidy Zee MD
[2018-07-15] MEDS ORDERED: Lisinopril 20 MG Tablet PO SCH (21:00)
== END 2018-07-15 12:05 | disposition home or self-care (01) ==
LOC: NEPE 14:01 → NEDA 16:39 → HIMC 18:00
PROVIDERS: ADMIT Family Medicine; ATTEND Family Medicine